=== PATIENT | female | born 1950 | race Caucasian/White ===

== ENCOUNTER 2020-02-22 10:38 | Inpatient (IN) ==
[2020-02-22] MEDS ORDERED: ONDANSETRON INJ 2 MG/ML 2 ML VIAL IV PRN (12:08)
[2020-02-22] MEDS ORDERED: MoRPHine SULFATE 2 MG/ML CARP IV PRN (12:11)
[2020-02-22] MEDS ORDERED: GLUCAGON FOR INJ 1 MG VIAL SQ PRN (12:11)
[2020-02-22] MEDS ORDERED: MoRPHine SULFATE 4 MG/ML 1 ML CARP\\VIAL IV PRN (12:11)
[2020-02-22] MEDS ORDERED: GLUCOSE 40% GEL 15 GM TUBE PO PRN (12:11)
[2020-02-22] MEDS ORDERED: DEXTROSE 50% 50 ML SYRINGE IV PRN (12:11)
[2020-02-22] MEDS ORDERED: GLUCOSE 10 TABS/TUBE PO PRN (12:11)
--- NOTE | 2020-02-22 12:16 | History & Physical Report ---
Date of Service February 22, 2020 Assessment & Plan (1) Acute renal failure: (2) CKD (chronic kidney disease) stage 3, GFR 30-59 ml/min: (3) Hydronephrosis: - Admit to med surg from OSH - Checking CMP now, reported baseline cr of 1.2, elevated at 2.1-->2.2, BUN=36, lactic 1.6, this morning from OSH - WBC = 7.7 on OSH, await repeat CBC - Upload imaging to pacs systems for eval - Urology consulted, Dr. Cole agreeable to cystoscopy for the patient if needed - appreciate - Cont IVFs, strain all urine, strict I/Os - Allow diet today, npo after midnight - UA and urine culture - UCx from 02/20 grew out mixed bret, she was given 1 dose of ceftriaxone there but this was discontinued after culture results, no further abx at this time. - bowel regimen ordered for last BM 3 days ago. (4) Hyperlipidemia: - Cont statin (5) Hypertension: - Cont antihypertensives including metoprolol succ 50 mg daily - hold HCTZ 25 mg daily, losartan 0.5 mg daily prn (6) Diabetes: - A1C with am labs - ISS with accuchecks achs (7) GERD (gastroesophageal reflux disease): - Cont omeprazole (8) Chronic low back pain: - Hx of such, hold celecoxib (9) Anxiety: -Cont lorazepam 0.5 mg prn, only uses occasionally (10) DVT prophylaxis: -teds, scds CODE: Full code Dispo: From home, likely to remain in the hospital x 2 days. History of Present Illness Primary Care Provider: Justino Tovar DO This is a 69 yo F with PMHx of HTN, HLD, DMII, chronic low back pain, anxiety, GERD who presents from [facility] with R groin pain that began 1 day ago leading to nausea and vomiting, found to have mild-moderate Right hydronephrosis. Creatinine is elevated, 2.2 at OSH compared to baseline of 1.2, and did not improve with hydration overnight. CT of the abdomen showed mild to moderate Right hydronephrosis/pelviectasis/ureterectasis without definite urinary calcification. 1-2 mm pelvic calcification in close proximity to distal right ureter but appears to be outside it likely phlebolith per CT AP but reported that there was phleboliths left residually, and no obstructing stone. Her pain worsened, and due to OSH not having urology, was transferred here after discussing with our urologist integration developer. The pt reports her pain is well controlled currently, rated 3/10, but at its worst is a 10/10. It goes from the right flank area around her side into the RLQ. She has had some nausea today but no vomiting. She denies fever, chills or sweats. Allergies Allergy/AdvReac Type Severity Reaction Status Date / Time No Known Allergies Allergy Verified 02/05/20 08:18 Home Medications Home Medications Medication Instructions Recorded Confirmed Type aspirin 81 mg tablet,delayed 81 mg PO DAILY 10/27/19 02/22/20 History release atorvastatin 20 mg tablet 20 mg PO DAILY 10/27/19 02/22/20 History baclofen 20 mg tablet 20 mg PO TID PRN 10/27/19 02/22/20 History hydrochlorothiazide 25 mg tablet 25 mg PO DAILY 10/27/19 02/22/20 History lorazepam 0.5 mg tablet 0.5 mg PO DAILY PRN 10/27/19 02/22/20 History losartan 100 mg tablet 100 mg PO DAILY 10/27/19 02/22/20 History metoprolol succinate 50 mg capsule 50 mg PO DAILY 10/27/19 02/22/20 History sprinkle, ext. release 24 hr omeprazole 40 mg capsule,delayed 40 mg PO DAILY 10/27/19 02/22/20 History release tramadol 50 mg tablet 50 mg PO Q8H PRN 10/27/19 02/22/20 History cephalexin 500 mg PO BID 4 Days #8 cap 02/25/20 Rx lidocaine 2 patch TRANSDERMAL QAM #30 ea 02/25/20 Rx metformin 500 mg PO QAM #30 tab 02/25/20 02/22/20 Rx oxybutynin chloride 5 mg PO BID PRN #20 tab 02/25/20 Rx Past Med/Surg History Medical History Anxiety Chronic low back pain (Chronic) Diabetes mellitus, type 2 GERD (gastroesophageal reflux disease) Lumbar radicular pain (Chronic) Postlaminectomy syndrome of lumbosacral region (Chronic) Surgical History H/O rotator cuff surgery right H/O: hysterectomy Previous back surgery L2-S1 posterior fusion 2 rods and screws 3 years ago (03/2016) Social History Preferred Language: Frisian Communication Ability: Effective Visual Impairment: Limited Hearing Ability: Normal Cash Posting Representative Required: No Beliefs That Will Affect Care: None marital status: Current Living Situation: Spouse current occupational status: retired Feels Safe at Home: Yes Smoking Status: Never smoker Second Hand Exposure: No ; Hx Alcohol Use: No Hx Substance Use: No Review of Systems Review of Systems: Constitutional: No fever, sweats or chills Eyes: No diplopia, no worsening or blurred vision ENT: normal hearing, no trouble swallowing Respiratory: No cough, sputum, dyspnea at rest or on exertion Cardiovascular: No chest pain, tightness or palpitations Abdomen: + As per HPI, + mild pain, +nausea, novomiting, diarrhea. + constipation, last BM 3 days ago Musculoskeletal: No joint pain, calf pain, swelling Neurologic: No weakness, numbness/tingling, or balance problems Psychiatric: No anxiety or depression, uses lorazepam occasionally, like when she has to have a MRI. Skin: No rash or itch Physical Exam Physical Exam: General: awake, alert, no apparent distress, + obese Head: Normocephalic, atraumatic ENT: PERRL, EOMI, no pharyngeal exudate, mucous membranes moist Chest: Clear to auscultation, on room air, no adventitious breath sounds Cardiac: Regular rate and rhythm, no murmur, no JVD, normal peripheral pulses, good capillary refill Abdominal: NABS x 4 quadrants, soft, nondistended, nontender to palpation, no rebound, guarding or tenderness Extremities: Normal inspection, no peripheral edema or erythema, calfs nontender to palpation Psych: Normal mood and affect Neuro: AAO x 3, strength intact bilaterally and rated 5/5, no motor deficits, speech is clear, no peripheral sensory deficits Results & Data Results & Data ([facility]) Diagnostic Findings CT from OSh from 02/21/2020: Mild to moderate Right hydronephrosis/;elviectasis/ureterectasis without difinite urinary calcification. 1-2 mm pelvic calcification in close proximtiy to distal right ureter butappears to be outside it likely phlebolith per CT AP. Code Status & VTE Plan VTE Prophylaxis Plan VTE Prophylaxis will be ordered: Yes Supervising Physician Co-Signing Physician Notes Patient is seen and examined at bedside. During my face to face encounter, I obtained a history and physical examination. My history and physical examination did not differ from the above note created by APC Mrs. Espinoza. I discussed plan with patient and APC, and answered all of the patients questions. Patient is admitted with hydronephrosis, will consult Urology for stent placement. Patient will be NPO after midnight for procedure in AM. PG Care Time/CCT Total # of Minutes Spent Total Time Spent with Patient: Total time spent is greater than 50% in coordination of care (as documented) at patient's floor/unit and/or counseling patient: Coding Level of Care Code 28224 Initial Inpt Care Lvl 3 Diagnoses Acute renal failure N17.9 CKD (chronic kidney disease) stage 3, GFR 30-59 ml/min N18.3 Hydronephrosis N13.30 Hyperlipidemia E78.5 Hypertension I10 Diabetes E11.9 GERD (gastroesophageal reflux disease) K21.9 Chronic low back pain M54.5; G89.29 Anxiety F41.9 DVT prophylaxis Z29.9
--- NOTE | 2020-02-22 14:05 | Urology Consultation ---
Date of Consultation February 22, 2020 Assessment & Plan (1) Hydronephrosis: Worsening pain and VINCE with hydration and time. Sent from [facility] for assessment and urology coverage. Discussed options. Patient had lunch at [facility] prior to transfer. Will plan NPO at midnight and likely stent on Sunday. Complicated medical and surgical and past history and family history reviewed and summarized. See records for full report. (2) Acute renal failure: History of Present Illness Attending Physician: Bertin Stanley MD History of Present Illness New consultation for patient with discomfort, obstruction, and ill feelings. Transferred from [facility]. Found to have significant VINCE which worsened. No obvious stone on imaging but hydro with possible recently passed stone vs pheloblith. Patient developed sudden onset of pain into flank going down and radiating into groin and back in waves comes and goes. Can be severe at times. Worsened during hospitalization Discussed and reviewed patient's family history for any history of stone disease. Also, discussed patient's medical surgery history especially related to any history of urinary issues or stone disease. Patient was admitted and is undergoing observation. Allergies Allergy/AdvReac Type Severity Reaction Status Date / Time No Known Allergies Allergy Verified 02/05/20 08:18 Home Medications Home Medications Medication Instructions Recorded Confirmed Type aspirin 81 mg tablet,delayed 81 mg PO DAILY 10/27/19 02/22/20 History release atorvastatin 20 mg tablet 20 mg PO DAILY 10/27/19 02/22/20 History baclofen 20 mg tablet 20 mg PO TID PRN 10/27/19 02/22/20 History celecoxib 100 mg capsule 100 mg PO BID 10/27/19 02/22/20 History hydrochlorothiazide 25 mg tablet 25 mg PO DAILY 10/27/19 02/22/20 History ibuprofen 800 mg tablet 800 mg PO TID PRN 10/27/19 02/22/20 History lorazepam 0.5 mg tablet 0.5 mg PO DAILY PRN 10/27/19 02/22/20 History losartan 100 mg tablet 100 mg PO DAILY 10/27/19 02/22/20 History metformin 500 mg tablet 500 mg PO BID 10/27/19 02/22/20 History metoprolol succinate 50 mg capsule 50 mg PO DAILY 10/27/19 02/22/20 History sprinkle, ext. release 24 hr omeprazole 40 mg capsule,delayed 40 mg PO DAILY 10/27/19 02/22/20 History release tramadol 50 mg tablet 50 mg PO Q8H PRN 10/27/19 02/22/20 History Patient History Medical History Anxiety Chronic low back pain (Chronic) Diabetes mellitus, type 2 GERD (gastroesophageal reflux disease) Lumbar radicular pain (Chronic) Postlaminectomy syndrome of lumbosacral region (Chronic) Surgical History H/O rotator cuff surgery right H/O: hysterectomy Previous back surgery L2-S1 posterior fusion 2 rods and screws 3 years ago (03/2016) Social History Preferred Language: Bulgarian Communication Ability: Effective Visual Impairment: Limited Hearing Ability: Normal Gritting Machine Operator Required: No Beliefs That Will Affect Care: None marital status: Current Living Situation: Spouse current occupational status: retired Other Information That Helps Us Care for You: No Feels Safe at Home: Yes Safety Concerns: Feels Safe At This Time Smoking Status: Never smoker Do You Dip or Chew Tobacco: No ; Second Hand Exposure: No ; Tobacco Cessation Education Requested by Patient: No Hx Alcohol Use: No Hx Substance Use: No Review of Systems Review of Systems: All systems reviewed & are unremarkable except as noted in HPI & below Physical Exam Physical Exam: General: Alert and oriented x 3 in no acute distress. Patient is well nourished and well kept. HEENT: Normocephalic Atraumatic. Inspection normal. Cranial Nerves 2-12 Grossly intact. Nares are clear. Neck is supple. Normal inspection of face. Normal inspection of neck. Neurologic: No deficits on inspection. Baseline for motor function and sensory. Psychologic: Normal affect. Respiratory: Nonlabored. No use of accessory muscles. No tachypnea or dyspnea. Cardiovascular: No tachycardia Skin: [place] and Dry. No rashes or visible lesions. Extremities: Moving without issues. No motor deficits on inspection Lymphatics: No edema Abdomen: Soft Non-distended. No acites. No rebound or guarding. PG Care Time/CCT Total # of Minutes Spent Total Time Spent with Patient: Total time spent is greater than 50% in coordination of care (as documented) at patient's floor/unit and/or counseling patient: Coding Level of Care Code 78555 Initial Inpt Care Lvl 3 Diagnoses Hydronephrosis N13.30 Acute renal failure N17.9
[2020-02-22] MEDS ORDERED: Nursing to Pharmacy Communication SCH (14:30)
[2020-02-22] MEDS: SODIUM CHLORIDE 0.9% 1000ML 1,000 ML IV SCH ×2 (14:39→21:13)
[2020-02-22] MEDS ORDERED: bisacodyL 10 MG SUPP PR PRN (14:45)
[2020-02-22 15:16] LABS: Albumin Level 3.2 gm/dl (3.4-5.0); BUN Creatinine Ratio 15.2 (10-20); Creatinine Clr Calc Pharmacy 24.1 ml/min; Est GFR (African American) 25.3; Est GFR (Non-African American) 21.8; Potassium 3.8 mmol/L (3.5-5.1)
[2020-02-22 15:18] LABS: Albumin Globulin Ratio 0.9 (0.9-2); Bilirubin,Total 0.5 mg/dl (0.2-1); Globulin 3.7 gm/dl (2.5-4.0); Total Protein 6.9 gm/dl (6.4-8.2)
[2020-02-22] MEDS: POLYETHYLENE (MIRALAX) 17 GM PACK PO SCH (15:58)
[2020-02-22] MEDS: SENNA 8.6 MG TAB PO SCH (16:09)
[2020-02-22] MEDS: ACETAMINOPHEN 325 MG TAB PO PRN ×2 (16:13→21:20)
[2020-02-22 16:23] LABS: Appearance Urine Clear (Clear); Bacteria Urine Automated Negative (Negative); Bilirubin Urine Negative (Negative); Blood Urine 2+ (Negative); Color Urine Yellow; Epithelial Cell Urine Auto 20-30 /lpf (0-5); Glucose Urine UA Negative (Negative); Ketones Urine Negative (Negative); Leukocyte Esterase Urine 2+ (Negative); Nitrite Urine Negative (Negative); Protein Urine Negative (Negative); Specific Gravity Urine 1.021 (1.000-1.030); Urobilinogen Urine Negative (Negative)
[2020-02-22] MEDS ORDERED: INSULIN ASPART 100 UNITS/ML 3 ML PEN SC SCH (18:00)
[2020-02-22] MEDS: INSULIN ASPART 100 UNITS/ML 3 ML PEN SC SCH ×2 (18:03→21:13)
[2020-02-22] MEDS: KETOROLAC TROMETHAMINE 15 MG/ML VIAL IV PRN (23:32)
[2020-02-23] MEDS ORDERED: Nursing to Pharmacy Communication SCH ×2 (02:00→18:15)
[2020-02-23] MEDS: SODIUM CHLORIDE 0.9% 1000ML 1,000 ML IV SCH (05:23)
[2020-02-23] MEDS: KETOROLAC TROMETHAMINE 15 MG/ML VIAL IV PRN (05:34)
[2020-02-23 06:16] LABS: Basophils # (auto) 0.03 K/uL (0-0.2); Basophils % (auto) 0.5 %; Eosinophils # (auto) 0.09 K/uL (0-0.5); Eosinophils % (auto) 1.6 %; Hematocrit (blood only) 31.6 % (37-47); Lymphocytes # (auto) 2.32 K/uL (1.2-3.4); Lymphocytes % (auto) 41.8 %; Mean Corpuscular Hemoglobin 29.5 pg (25-34); Mean Corpuscular Hgb Conc 31.6 g/dL (32-36); Mean Corpuscular Volume 93.2 fL (80-100); Mean Platelet Volume 9.9 fL (7.4-10.4); Monocytes # (auto) 0.48 K/uL (0.11-0.59); Monocytes % (auto) 8.6 %; Neutrophils # (auto) 2.63 K/uL (1.4-6.5); Neutrophils % (auto) 47.5 %; Platelet Count 165 K/uL (130-400); RDW Coefficient of Variation 14.7 % (11.5-14.5); RDW Standard Deviation 49.8 fL (36.4-46.3); Red Blood Count 3.39 M/uL (4.2-5.4); White Blood Count 5.55 K/uL (4.8-10.8)
[2020-02-23] MEDS: INSULIN ASPART 100 UNITS/ML 3 ML PEN SC SCH ×2 (06:32→12:14)
[2020-02-23 07:02] LABS: Albumin Globulin Ratio 0.8 (0.9-2); Albumin Level 2.6 gm/dl (3.4-5.0); BUN Creatinine Ratio 22.8 (10-20); Bilirubin,Total 0.4 mg/dl (0.2-1); Calcium 7.6 mg/dl (8.5-10.1); Creatinine Clr Calc Pharmacy 36.8 ml/min; Est GFR (African American) 42.2; Est GFR (Non-African American) 36.4; Globulin 3.1 gm/dl (2.5-4.0); Potassium 3.9 mmol/L (3.5-5.1); Total Protein 5.7 gm/dl (6.4-8.2)
[2020-02-23 07:05] LABS: Estimated Average Glucose 131 mg/dl; Hemoglobin A1C 6.2 % (4.5-5.6)
--- NOTE | 2020-02-23 08:48 | Urology Progress Note ---
Date of Service February 23, 2020 Assessment & Plan (1) Hydronephrosis: Worsening pain and VINCE with hydration and time. Sent from [facility] for assessment and urology coverage. Doing better this AM. Pain less severe. VINCE resolving. Discussed options including cystoscopy with retrograde and possible ureteroscopy. Risks and benefits discussed at length for procedure. These include bleeding, infection, injury to surrounding tissues or organs, and risks associated with anesthesia. Patient states understanding and agrees to proceed. Will sign consent and schedule. Plan to proceed with cystoscopy and right retrograde with possible dilation. Subjective Patient with possible obstruction and issues with pain in flank and back with significant VINCE. Patient has been tolerating well IV and oral hydration. Has noticed some frequency and urgency. Has not had severe pain in the back and flank. Does have occasional burning and irritation. No severe episodes or major changes. No new nausea or vomiting. Review of Systems Review of Systems: All systems reviewed & are unremarkable except as noted in HPI & below Physical Exam Physical Exam: General: Alert in no acute distress. HEENT: Normocephalic Atraumatic. Inspection normal. Cranial Nerves 2-12 Grossly intact. Normal inspection of face. Normal inspection of neck. Psychologic: Normal affect. Respiratory: Nonlabored. No use of accessory muscles. No tachypnea or dyspnea. Cardiovascular: No tachycardia Skin: [place] and Dry. No rashes or visible lesions. Extremities/Lymphatics: No edema Abdomen: Soft Non-distended. No rebound or guarding. Results & Data Vital Signs (Past 12 Hours) Vital Signs Temp Pulse Resp BP Pulse Ox 02/23/20 07:23 36.7 C 57 L 18 122/70 97 02/22/20 22:54 36.8 C 68 16 98/66 L 96 PG Care Time/CCT Total # of Minutes Spent Total Time Spent with Patient: Total time spent is greater than 50% in coordination of care (as documented) at patient's floor/unit and/or counseling patient: Coding Level of Care Code 83833 Subseq Hosp Care Lvl 3 Diagnoses Hydronephrosis N13.30
[2020-02-23] MEDS: SENNA 8.6 MG TAB PO SCH (09:28)
[2020-02-23] MEDS: POLYETHYLENE (MIRALAX) 17 GM PACK PO SCH (09:28)
--- NOTE | 2020-02-23 11:12 | Electrocardiogram Report ---
Test Reason : Blood Pressure : / mmHG Vent. Rate : 072 BPM Atrial Rate : 072 BPM P-R Int : 152 ms QRS Dur : 072 ms QT Int : 396 ms P-R-T Axes : 042 -18 022 degrees QTc Int : 433 ms Normal sinus rhythm Poor R wave progression, consider anterior OK vs. lead placement vs. LVH Abnormal ECG When compared with ECG of 16-SEP-2015 07:16, No significant change was found Confirmed by Trever Rivas ([id number]) on 02/23/2020 11:12:19 AM Referred By: Bertin Stanley Confirmed By:Trever Rivsa
--- NOTE | 2020-02-23 15:27 | Anesthesiology Consultation ---
Date of Service February 23, 2020 Assessment & Plan Chart Review Chart Review: Acceptable Risk for Surgery Consults Requested none History Surgery Operation Date: 02/23/20 12:55 Proposed Procedures p Cystoscopy Retrograde, Stent - Art Cole DO Operation Date: 02/23/20 13:15 Proposed Procedures p Cystoscopy Retrograde - Art Cole DO Height/Weight Height: 5 ft 2 in Weight: 87.6 kg Allergies Allergy/AdvReac Type Severity Reaction Status Date / Time No Known Allergies Allergy Verified 02/05/20 08:18 Medications Home Medications Medication Instructions Recorded Confirmed Last Taken aspirin 81 mg tablet,delayed 81 mg PO DAILY 10/27/19 02/22/20 02/22/20 release atorvastatin 20 mg tablet 20 mg PO DAILY 10/27/19 02/22/20 02/21/20 baclofen 20 mg tablet 20 mg PO TID PRN 10/27/19 02/22/20 Unknown celecoxib 100 mg capsule 100 mg PO BID 10/27/19 02/22/20 Unknown hydrochlorothiazide 25 mg tablet 25 mg PO DAILY 10/27/19 02/22/20 02/21/20 ibuprofen 800 mg tablet 800 mg PO TID PRN 10/27/19 02/22/20 Unknown lorazepam 0.5 mg tablet 0.5 mg PO DAILY PRN 10/27/19 02/22/20 02/22/20 losartan 100 mg tablet 100 mg PO DAILY 10/27/19 02/22/20 02/21/20 metformin 500 mg tablet 500 mg PO BID 10/27/19 02/22/20 02/21/20 metoprolol succinate 50 mg capsule 50 mg PO DAILY 10/27/19 02/22/20 02/22/20 sprinkle, ext. release 24 hr omeprazole 40 mg capsule,delayed 40 mg PO DAILY 10/27/19 02/22/20 02/21/20 release tramadol 50 mg tablet 50 mg PO Q8H PRN 10/27/19 02/22/20 Unknown Active Medications Generic Name Dose Route Start Last Admin Trade Name Freq PRN Reason Stop Dose Admin Acetaminophen 650 mg 02/22/20 12:08 02/22/20 21:20 Tylenol PO 03/23/20 12:07 650 mg Q4H PRN Administration Moderate Pain Insulin Aspart 0 units 02/23/20 06:00 02/23/20 12:14 Novolog Flexpen SC 03/24/20 05:59 Not Given Q6 EWA Ketorolac Tromethamine 15 mg 02/22/20 12:11 02/23/20 05:34 Toradol IV 02/27/20 12:10 15 mg Q6H PRN Administration Pain Polyethylene Glycol 17 gm 02/22/20 14:45 02/23/20 09:28 Miralax Powder Packet PO 03/23/20 14:44 Not Given DAILY EWA Sennosides 8.6 mg 02/22/20 14:45 02/23/20 09:28 Senokot PO 03/23/20 14:44 Not Given QAM EWA NPO Date Last Intake of Fluids: 02/22/20 Time Last Intake of Fluids: 18:00 Date Last Intake of Solids: 02/22/20 Time Last Intake of Solids: 18:00 Past Medical History Medical History Anxiety Chronic low back pain (Chronic) Diabetes mellitus, type 2 GERD (gastroesophageal reflux disease) Lumbar radicular pain (Chronic) Postlaminectomy syndrome of lumbosacral region (Chronic) Past Surgical History Surgical History H/O rotator cuff surgery right H/O: hysterectomy Previous back surgery L2-S1 posterior fusion 2 rods and screws 3 years ago (03/2016) Social History Smoking Status: Never smoker Do You Dip or Chew Tobacco: No Hx Alcohol Use: No Hx Substance Use: No Physical Exam Vital Signs Last Vital Signs Temp 37.0 C 02/23/20 14:40 Pulse 59 L 02/23/20 14:40 Resp 18 02/23/20 14:40 BP 199/86 H 02/23/20 14:40 Pulse Ox 99 02/23/20 14:40 Testing Laboratory Results 02/23/20 05:54 02/23/20 05:54 Hemoglobin A1c 6.2 % (4.5-5.6) H 02/23/20 05:54 Urine Color Yellow 02/22/20 16:00 Urine Appearance Clear (Clear) 02/22/20 16:00 Urine pH 5.0 (4.5-7.5) 02/22/20 16:00 Ur Specific [place] 1.021 (1.000-1.030) 02/22/20 16:00 Urine Protein Negative (Negative) 02/22/20 16:00 Urine Glucose (UA) Negative (Negative) 02/22/20 16:00 Urine Ketones Negative (Negative) 02/22/20 16:00 Urine Nitrite Negative (Negative) 02/22/20 16:00 Ur Leukocyte Esterase 2+ (Negative) H 02/22/20 16:00 Urine WBC (Auto) 10-30 /hpf (0-5) H 02/22/20 16:00 Urine RBC (Auto) 5-10 /hpf (0-4) H 02/22/20 16:00 U Hyaline Cast (Auto) 5-10 /lpf (0-5) H 02/22/20 16:00 U Epithel Cells (Auto) 20-30 /lpf (0-5) H 02/22/20 16:00 Urine Bacteria (Auto) Negative (Negative) 02/22/20 16:00 02/23/20 02/23/20 02/23/20 14:42 12:11 05:40 POC Glucose 71 81 102 H
[2020-02-23] MEDS ORDERED: fentaNYL citrate 100 MCG/2 ML VIAL IV PRN (15:30)
[2020-02-23] MEDS ORDERED: HYDROmorphone INJ 2 MG/ML SYR/VIAL IV PRN (15:30)
[2020-02-23] MEDS ORDERED: ATROPINE SULFATE 0.1 MG/ML 10ML SYR IV PRN (15:30)
[2020-02-23] MEDS ORDERED: ePHEDrine sulfate 50 MG/ML AMP IV PRN (15:30)
[2020-02-23] MEDS ORDERED: ONDANSETRON INJ 2 MG/ML 2 ML VIAL IV PRN (15:30)
[2020-02-23] MEDS ORDERED: LIDOCAINE HCL 2% 2 ML VIAL/AMP(20MG/ML) INFIL ONE (15:31)
[2020-02-23] MEDS ORDERED: fentaNYL citrate 100 MCG/2 ML VIAL ONE (15:31)
[2020-02-23] MEDS ORDERED: PROPOFOL IV EMULSION 10 MG/ML 20 ML VIAL IV ONE (15:31)
[2020-02-23] MEDS ORDERED: MIDAZOLAM HCL 1 MG/ML 2ML VIAL ONE (15:31)
[2020-02-23] MEDS ORDERED: ONDANSETRON INJ 2 MG/ML 2 ML VIAL ONE (15:31)
[2020-02-23] MEDS ORDERED: IOTHALAMATE MEGLUMINE II 17.2% 250 ML VIAL ONE (16:19)
[2020-02-23] MEDS ORDERED: CEFAZOLIN 1000MG 1,000 MG/7.5 ML SYR IV ONE (16:36)
--- NOTE | 2020-02-23 16:47 | Operative Report ---
PG Post Operative Report Pre & Post Diagnosis Operation Date: 02/23/20 12:55 Pre-Op Diagnosis: HYDRONEPHROSIS,NEPHROLITHIASIS Post-Op Diagnosis: HYDRONEPHROSIS,NEPHROLITHIASIS Operation Date: 02/23/20 13:15 <No data on this case meets the specified criteria> I identified the patient and participated in the time-out.: Yes Procedure Operation Date: 02/23/20 12:55 Actual Procedures p Cystoscopy with extraction of bladder stones and right ureteroscopy with dilation of ureter, Retrograde pyelogram, Ureteral Stent Placement, stone basket extraction(Right) - Art Cole DO Operation Date: 02/23/20 13:15 <No data on this case meets the specified criteria> Surgeon Art Cole, II, DO Director Of Infection Control None Estimated Blood Loss 1 Findings Consistent with Post-Op Diagnosis Stone destroyed to dust and small fragments and larger fragments removed. Specimens Stone Fragments Drains 6 Fr Multilength on tether. Anesthesia Type General Complications none Disposition Disposition: Recovery Room Indications Patient with stricture vs stones causing hydronephrosis. Risks and benefits discussed at length. Description of Procedure Patient was consented and brought back to the operating room. Patient was placed under anesthesia in the supine position and moved to the dorsal lithotomy position. Patient was prepped and draped in the regular sterile fashion. A time out was completed. A 30degree Cystoscope was placed into the bladder and the entire bladder was examined. A large amount of debris and stone were in the base of the bladder. These were irrigated. Patient had significant pelvic organ prolapse. The UO's were identified. The UO was cannulized with a catheter and a retrograde pyelogram was completed. The ureter appeared strictured. A wire was then placed. The Rigid ureteroscope was taken into the ureter. A significant stricture with an obstructing stone was identified. The stricture was dilated. The stone was grasped and removed with the basket. The entire area was once again examined. No residual large fragments or areas of concern were noted. The scope was slowly removed with the wire left in place. Contrast was placed through the scope for a pyelogram to assist in stent placement. The entire ureter was examined as the scope was slowly removed. No obstructions or other areas of concern were noted. With the wire in place, a 6 Fr Double J stent was placed. It was confirmed with fluoroscopy. With the stent in place, the bladder was emptied. The scope was removed. The patient was cleaned, aroused from anesthesia, and transferred to the pacu in stable condition having tolerated the procedure well with no complications. I was present and participated in all aspects of the procedure. The patient will be monitored in the PACU until transferred. I attest to the content of the Intraoperative Record and any orders documented therein. Any exceptions are noted below.
--- NOTE | 2020-02-23 16:57 | Fluoroscopy Report ---
FL retrograde includes kub CLINICAL HISTORY: CYSTO/RETROGRADE/STENT COMPARISON STUDY: None FLUOROSCOPY TIME: 1 minute 4 seconds NUMBER OF FLUOROSCOPIC IMAGES: 2 FINDINGS: Image intensifier support for laser lithotripsy and right ureteral stent placement IMPRESSION: Image intensifier support for laser lithotripsy and right ureteral stent placement ACT 112: Negative or not required by law. The above report was generated using voice recognition software. It may contain grammatical, syntax or spelling errors. Electronically signed by: Evelio Cabral M.D. 02/23/2020 4:56 PM
--- NOTE | 2020-02-23 17:07 | Anesthesiology Progress Note ---
Date of Service February 23, 2020 Anesthesia Post Procedure Vital Signs Vital Signs: Temp Pulse Pulse Resp BP Pulse Ox 02/23/20 17:00 64 15 138/78 96 02/23/20 16:53 37.0 C 69 17 130/78 94 02/23/20 14:40 37.0 C 59 L 18 199/86 H 99 02/23/20 07:23 36.7 C 57 L 18 122/70 97 02/22/20 22:54 36.8 C 68 16 98/66 L 96 Pain Intensity Right Flank: Pain Intensity: 0 Back: Pain Intensity: 6 Head: Pain Intensity: 7 Transfer of Care Handoff Completed per policy Notes Mental Status: alert / awake / arousable Patient Amnestic to Procedure: Yes Nausea / Vomiting: adequately controlled Pain: adequately controlled Airway Patency, RR, SpO2: stable & adequate BP & HR: stable & adequate Hydration State: stable & adequate Anesthetic Complications: no major complications apparent
[2020-02-23] MEDS: CARBOHYDRATES FOR HYPOGLYCEMIA PO PRN ×2 (18:22→18:41)
[2020-02-23] MEDS ORDERED: INSULIN ASPART 100 UNITS/ML 3 ML PEN SC SCH (21:00)
--- NOTE | 2020-02-23 21:03 | Hospitalist Progress Note ---
Date of Service February 23, 2020 Assessment & Plan (1) Kidney stone on right side: s/p cysto today by Dr Cole. Findings on cysto - bladder stones/debris in bladder -- removed. Right sided ureteral stricture - dilated. Right sided ureteral stone - removed. stent placed. appreciate his assistance. (2) Ureteral stricture, right: s/p dilatation. stone and stricture caused her hydronephrosis. (3) Acute renal failure: obstructive from kidney stone and ureteral stricture. Cr improved today. cont IV fluids. repeat BMP am. (4) CKD (chronic kidney disease) stage 3, GFR 30-59 ml/min: uncertain baseline but suspect stage 3 repeat BMP am (5) Hydronephrosis: right-sided - as above (6) Hyperlipidemia: holding statin for now resume at discharge (7) Hypertension: HCTZ, ARB, and BB all on hold can likely resume metoprolol xl in am tomorrow (8) Diabetes: holding oral agents cont novolog correction/carb coverage HbA1C 6.2% (9) GERD (gastroesophageal reflux disease): prilosec not on formulatory use protonix in [place] (10) Chronic low back pain: with surgery in past hold celebrex in light of VINCE (11) Anxiety: -Cont lorazepam 0.5 mg prn (12) DVT prophylaxis: SCDs for now in light of surgery today labs AM IV fluids overnight Admission and Anticipated Discharge Date Admission Date: February 22, 2020 Subjective saw patient pre-cysto was resting comfortably w/o right sided flank or back pain ambulating w/o difficulty offered no complaints Review of Systems Constitutional: no fever Respiratory: no dyspnea and no dyspnea on exertion Cardiovascular: no chest pain Gastrointestinal: no vomiting Physical Exam Constitutional: well developed, well nourished and + obese; no acute distress and no altered mental status ENMT: external ear and nose normal, oropharynx normal Respiratory: normal respiratory effort, lungs clear to auscultation Cardiovascular: Rate/Rhythm: regular rate and regular rhythm Heart Sounds: normal S1 and normal S2; no murmur Vessels: posterior tibial pulses present and dorsalis pedis pulses present; no JVD Extremities: no edema Gastrointestinal (Abdomen): normal bowel sounds, soft, nontender, no hepatosplenomegaly Psychiatric: A+Ox3, euthymic affect Results & Data Results & Data ([facility]) Vital Signs (Past 12 Hours) Vital Signs Temp Pulse Pulse Resp BP Pulse Ox 02/23/20 19:45 36.5 C 74 16 113/76 96 02/23/20 18:36 36.5 C 57 L 16 147/78 H 96 02/23/20 17:40 36.5 C 58 L 16 141/84 H 99 02/23/20 17:15 62 16 146/76 H 96 02/23/20 17:10 37.2 C 60 16 151/85 H 96 02/23/20 17:00 64 15 138/78 96 02/23/20 16:53 37.0 C 69 17 130/78 94 02/23/20 14:40 37.0 C 59 L 18 199/86 H 99 Laboratory Results urine cx pending Laboratory Results - last 24 hr 02/22/20 02/23/20 02/23/20 16:49 05:40 05:54 WBC 5.55 RBC 3.39 L Hgb 10.0 L Hct 31.6 L MCV 93.2 MCH 29.5 MCHC 31.6 L RDW Std Deviation 49.8 H RDW Coeff of Sari 14.7 H Plt Count 165 MPV 9.9 Immature Gran % (Auto) 0.0 Neut % (Auto) 47.5 Lymph % (Auto) 41.8 Brooke % (Auto) 8.6 Eos % (Auto) 1.6 Baso % (Auto) 0.5 Immature Gran # (Auto) 0.00 Neut # (Auto) 2.63 Lymph # (Auto) 2.32 Brooke # (Auto) 0.48 Eos # (Auto) 0.09 Baso # (Auto) 0.03 Sodium Potassium Chloride Carbon Dioxide Anion Gap BUN Creatinine Est Cr Clr Drug Dosing Est GFR ( Amer) Est GFR (Non-Af Amer) BUN/Creatinine Ratio Glucose POC Glucose 102 H Estimat Average Glucose Hemoglobin A1c Calcium Total Bilirubin AST ALT Alkaline Phosphatase Total Protein Albumin Globulin Albumin/Globulin Ratio Stone Source Stone Weight Stone Composition Stone Composition 2 COVID-19 PCR NEGATIVE 02/23/20 02/23/20 02/23/20 05:54 05:54 12:11 WBC RBC Hgb Hct MCV MCH MCHC RDW Std Deviation RDW Coeff of Sari Plt Count MPV Immature Gran % (Auto) Neut % (Auto) Lymph % (Auto) Brooke % (Auto) Eos % (Auto) Baso % (Auto) Immature Gran # (Auto) Neut # (Auto) Lymph # (Auto) Brooke # (Auto) Eos # (Auto) Baso # (Auto) Sodium 144 Potassium 3.9 Chloride 113 H Carbon Dioxide 25 Anion Gap 6.0 BUN 33 H Creatinine 1.44 H D Est Cr Clr Drug Dosing 36.8 Est GFR ( Amer) 42.2 Est GFR (Non-Af Amer) 36.4 BUN/Creatinine Ratio 22.8 H Glucose 98 POC Glucose 81 Estimat Average Glucose 131 Hemoglobin A1c 6.2 H Calcium 7.6 L Total Bilirubin 0.4 AST 7 L ALT 11 L Alkaline Phosphatase 41 L Total Protein 5.7 L Albumin 2.6 L Globulin 3.1 Albumin/Globulin Ratio 0.8 L Stone Source Stone Weight Stone Composition Stone Composition 2 COVID-19 [facility] 02/23/20 02/23/20 02/23/20 14:42 16:39 17:10 WBC RBC Hgb Hct MCV MCH MCHC RDW Std Deviation RDW Coeff of Sari Plt Count MPV Immature Gran % (Auto) Neut % (Auto) Lymph % (Auto) Brooke % (Auto) Eos % (Auto) Baso % (Auto) Immature Gran # (Auto) Neut # (Auto) Lymph # (Auto) Brooke # (Auto) Eos # (Auto) Baso # (Auto) Sodium Potassium Chloride Carbon Dioxide Anion Gap BUN Creatinine Est Cr Clr Drug Dosing Est GFR ( Amer) Est GFR (Non-Af Amer) BUN/Creatinine Ratio Glucose POC Glucose 71 75 Estimat Average Glucose Hemoglobin A1c Calcium Total Bilirubin AST ALT Alkaline Phosphatase Total Protein Albumin Globulin Albumin/Globulin Ratio Stone Source Pending Stone Weight Pending Stone Composition Pending Stone Composition 2 Pending COVID-19 PCR 02/23/20 02/23/20 02/23/20 18:16 18:18 18:38 WBC RBC Hgb Hct MCV MCH MCHC RDW Std Deviation RDW Coeff of Sari Plt Count MPV Immature Gran % (Auto) Neut % (Auto) Lymph % (Auto) Brooke % (Auto) Eos % (Auto) Baso % (Auto) Immature Gran # (Auto) Neut # (Auto) Lymph # (Auto) Brooke # (Auto) Eos # (Auto) Baso # (Auto) Sodium Potassium Chloride Carbon Dioxide Anion Gap BUN Creatinine Est Cr Clr Drug Dosing Est GFR ( Amer) Est GFR (Non-Af Amer) BUN/Creatinine Ratio Glucose POC Glucose 68 L* 65 L* 67 L* Estimat Average Glucose Hemoglobin A1c Calcium Total Bilirubin AST ALT Alkaline Phosphatase Total Protein Albumin Globulin Albumin/Globulin Ratio Stone Source Stone Weight Stone Composition Stone Composition 2 COVID-19 PCR 02/23/20 02/23/20 02/23/20 18:57 19:30 20:43 WBC RBC Hgb Hct MCV MCH MCHC RDW Std Deviation RDW Coeff of Sari Plt Count MPV Immature Gran % (Auto) Neut % (Auto) Lymph % (Auto) Brooke % (Auto) Eos % (Auto) Baso % (Auto) Immature Gran # (Auto) Neut # (Auto) Lymph # (Auto) Brooke # (Auto) Eos # (Auto) Baso # (Auto) Sodium Potassium Chloride Carbon Dioxide Anion Gap BUN Creatinine Est Cr Clr Drug Dosing Est GFR ( Amer) Est GFR (Non-Af Amer) BUN/Creatinine Ratio Glucose POC Glucose 86 104 H 136 H Estimat Average Glucose Hemoglobin A1c Calcium Total Bilirubin AST ALT Alkaline Phosphatase Total Protein Albumin Globulin Albumin/Globulin Ratio Stone Source Stone Weight Stone Composition Stone Composition 2 COVID-19 PCR 02/23/20 Unknown WBC RBC Hgb Hct MCV MCH MCHC RDW Std Deviation RDW Coeff of Sari Plt Count MPV Immature Gran % (Auto) Neut % (Auto) Lymph % (Auto) Brooke % (Auto) Eos % (Auto) Baso % (Auto) Immature Gran # (Auto) Neut # (Auto) Lymph # (Auto) Brooke # (Auto) Eos # (Auto) Baso # (Auto) Sodium Potassium Chloride Carbon Dioxide Anion Gap BUN Creatinine Est Cr Clr Drug Dosing Est GFR ( Amer) Est GFR (Non-Af Amer) BUN/Creatinine Ratio Glucose POC Glucose Estimat Average Glucose Hemoglobin A1c Calcium Total Bilirubin AST ALT Alkaline Phosphatase Total Protein Albumin Globulin Albumin/Globulin Ratio Stone Source Pending Stone Weight Pending Stone Composition Pending Stone Composition 2 Pending COVID-19 PCR PG Care Time/CCT Total # of Minutes Spent Total Time Spent with Patient: Total time spent is greater than 50% in coordination of care (as documented) at patient's floor/unit and/or counseling patient: Coding Level of Care Code 32159 Subseq Hosp Care Lvl 2 Diagnoses Kidney stone on right side N20.0 Ureteral stricture, right N13.5 Acute renal failure N17.9 Acute renal failure type: unspecified CKD (chronic kidney disease) stage 3, GFR 30-59 ml/min N18.3 Hydronephrosis N13.30 Hydronephrosis type: unspecified Hyperlipidemia E78.2 Hyperlipidemia type: mixed hyperlipidemia Hypertension I10 Hypertension type: essential hypertension Diabetes E11.9 Diabetes mellitus type: type 2 Diabetes mellitus skilled nursing insulin use: without skilled nursing use Diabetes mellitus complication status: without complication GERD (gastroesophageal reflux disease) K21.9 Esophagitis presence: esophagitis presence not specified Chronic low back pain M54.5; G89.29 Back pain laterality: unspecified Sciatica presence: without sciatica Anxiety F41.9 DVT prophylaxis Z29.9 (1) Acute renal failure Acute renal failure type: unspecified Qualified Code(s): N17.9 - Acute kidney failure, unspecified (2) Hydronephrosis Hydronephrosis type: unspecified Qualified Code(s): N13.30 - Unspecified hydronephrosis (3) Hyperlipidemia Hyperlipidemia type: mixed hyperlipidemia Qualified Code(s): E78.2 - Mixed hyperlipidemia (4) Hypertension Hypertension type: essential hypertension Qualified Code(s): I10 - Essential (primary) hypertension (5) Diabetes Diabetes mellitus type: type 2 Diabetes mellitus intermediate school teacher insulin use: without skilled nursing use Diabetes mellitus complication status: without complication Qualified Code(s): E11.9 - Type 2 diabetes mellitus without complications (6) GERD (gastroesophageal reflux disease) Esophagitis presence: esophagitis presence not specified Qualified Code(s): K21.9 - Gastro-esophageal reflux disease without esophagitis (7) Chronic low back pain Back pain laterality: unspecified Sciatica presence: without sciatica Qualified Code(s): M54.5 - Low back pain; G89.29 - Other chronic pain
[2020-02-23] MEDS: ACETAMINOPHEN 325 MG TAB PO PRN (23:34)
[2020-02-24] MEDS: MELATONIN 3 MG TAB PO PRN (01:21)
[2020-02-24 05:28] LABS: Hematocrit (blood only) 32.8 % (37-47); Hemoglobin 10.4 g/dL (12.0-16.0); Mean Corpuscular Hemoglobin 29.5 pg (25-34); Mean Corpuscular Hgb Conc 31.7 g/dL (32-36); Mean Corpuscular Volume 93.2 fL (80-100); Mean Platelet Volume 10.8 fL (7.4-10.4); Platelet Count 185 K/uL (130-400); RDW Coefficient of Variation 14.5 % (11.5-14.5); RDW Standard Deviation 49.7 fL (36.4-46.3); Red Blood Count 3.52 M/uL (4.2-5.4); White Blood Count 4.95 K/uL (4.8-10.8)
[2020-02-24 06:01] LABS: BUN Creatinine Ratio 22.9 (10-20); Calcium 8.3 mg/dl (8.5-10.1); Creatinine Clr Calc Pharmacy 59.1 ml/min; Est GFR (African American) 73.6; Est GFR (Non-African American) 63.5; Potassium 3.9 mmol/L (3.5-5.1)
--- NOTE | 2020-02-24 08:03 | Anesthesiology Progress Note ---
Date of Service February 24, 2020 Anesthesia Post Procedure Vital Signs Vital Signs: Temp Pulse Pulse Resp BP Pulse Ox 02/24/20 07:14 36.5 C 65 16 135/84 98 02/24/20 03:09 36.5 C 65 16 149/83 H 98 02/23/20 23:15 36.7 C 63 16 144/83 H 96 02/23/20 19:45 36.5 C 74 16 113/76 96 02/23/20 18:36 36.5 C 57 L 16 147/78 H 96 02/23/20 17:40 36.5 C 58 L 16 141/84 H 99 02/23/20 17:15 62 16 146/76 H 96 02/23/20 17:10 37.2 C 60 16 151/85 H 96 02/23/20 17:00 64 15 138/78 96 02/23/20 16:53 37.0 C 69 17 130/78 94 02/23/20 14:40 37.0 C 59 L 18 199/86 H 99 Pain Intensity Right Flank: Pain Intensity: 0 Back: Pain Intensity: 6 Head: Pain Intensity: 7 Notes Mental Status: alert / awake / arousable and participated in evaluation Patient Amnestic to Procedure: Yes Nausea / Vomiting: adequately controlled Pain: adequately controlled Airway Patency, RR, SpO2: stable & adequate BP & HR: stable & adequate Hydration State: stable & adequate Anesthetic Complications: no major complications apparent and Pt Satisfied with anesthetic care
[2020-02-24] MEDS: SENNA 8.6 MG TAB PO SCH (09:42)
[2020-02-24] MEDS: POLYETHYLENE (MIRALAX) 17 GM PACK PO SCH (09:42)
[2020-02-24] MEDS: INSULIN ASPART 100 UNITS/ML 3 ML PEN SC SCH ×5 (09:57→20:42)
[2020-02-24] MEDS ORDERED: bisacodyL 10 MG SUPP PR STA (10:51)
[2020-02-24] MEDS ORDERED: TRAMADOL HCL 50 MG TABLET PO STA (10:51)
--- NOTE | 2020-02-24 11:48 | Urology Progress Note ---
Date of Service February 24, 2020 Assessment & Plan (1) Kidney stone on right side: (2) Ureteral stricture, right: 69 yo F POD #1 s/p Cystoscopy with extraction of bladder stones and right ureteroscopy with dilation of ureter, Retrograde pyelogram, right ureteral stent placement, stone basket extraction with Dr. Cole. - Doing well, progressing as expected - Tolerating stent with minimal bother - Final UC&S showed contamination with moderate counts of mixed organisms - Clinical course reviewed, all questions answered - Will arrange outpatient follow-up with out service for stent removal Thank you for allowing us to participate in the acute care of Mrs. Gill. Please reconsult us with additional questions, concerns or changes in patient status. Subjective 69 yo F POD #1 s/p Cystoscopy with extraction of bladder stones and right ureteroscopy with dilation of ureter, Retrograde pyelogram, right ureteral stent placement, stone basket extraction with Dr. Cole. Awake, sitting up in bed. Feeling well, no complaints at this time. No issues overnight. Reports headache earlier, now resolved. Tolerating stent with low bother. No abdominal, suprapubic, or flank pain. Reports last BM 4-5 days ago. States she is ordered to have a suppository today. Voiding without difficulty. Notes hematuria. No f/c/n/v. Chart review: Afebrile. Creatinine 0.91, WBC 4.95. UC&S showed moderate counts of mixed bret. Review of Systems Constitutional: as per Subjective / HPI Gastrointestinal: as per Subjective / HPI Genitourinary: as per Subjective / HPI Physical Exam Constitutional: well developed and well nourished; no acute distress and not ill appearing Respiratory: normal respiratory effort and able to speak in complete sentences; no respiratory distress and no labored breathing Cardiovascular: Extremities: no pedal edema Gastrointestinal (Abdomen): Inspection/Auscultation: abdomen normal to inspection; abdomen not distended Percussion/Palpation: abdomen soft; abdomen nontender Musculoskeletal: Head/Neck/Chest: normocephalic and head atraumatic Neurologic: moves all extremities and awake Psychiatric: Orientation: alert and oriented x 3 Genitourinary: no CVA tenderness Results & Data Vital Signs (Past 12 Hours) Vital Signs Temp Pulse Resp BP Pulse Ox 02/24/20 11:40 36.7 C 61 16 158/84 H 99 02/24/20 07:14 36.5 C 65 16 135/84 98 02/24/20 03:09 36.5 C 65 16 149/83 H 98 PG Care Time/CCT Total # of Minutes Spent Total Time Spent with Patient: Total time spent is greater than 50% in coordination of care (as documented) at patient's floor/unit and/or counseling patient: Coding Level of Care Code 18536 Subseq Hosp Care Lvl 2 Diagnoses Kidney stone on right side N20.0 Ureteral stricture, right N13.5
[2020-02-24] MEDS ORDERED: SOD PHOSPHATE/SOD BIPHOSPHATE ENEMA 132 ML BTL PR STA (13:37)
--- NOTE | 2020-02-24 16:01 | XRay Report ---
XR abdomen 2V w PA chest CLINICAL HISTORY: severe constipation; ileus?? Pain COMPARISON STUDY: No previous studies for comparison. FINDINGS: The soft tissues, psoas shadows, renal outlines and intestinal gas pattern appear normal. T here is no evidence for bowel obstruction. There is no evidence for free intraperitoneal air. No abno rmal abdominal calcifications are seen. A frontal view of the chest was performed and is unremarkable . Right ureteral stent. Postoperative changes lumbar spine. Nonobstructive bowel pattern. IMPRESSION: No acute process of the abdomen or chest. Right ureteral stent . Nonobstructive bowel pattern. ACT 112: Negative or not required by law. The above report was generated using voice recognition software. It may contain grammatical, syntax or spelling errors. Electronically signed by: Evelio Cabral M.D. 02/24/2020 4:00 PM
--- NOTE | 2020-02-24 17:05 | Hospitalist Progress Note ---
Date of Service February 24, 2020 Assessment & Plan (1) Kidney stone on right side: POD #1 s/p cysto with bladder stones/debris in bladder -- removed. Right sided ureteral stricture - dilated. Right sided ureteral stone - removed. stent placed. Appreciate urology assistance. Having bladder spasms, incontinence, etc - ditropan 5mg po bid prn. Tramadol prn. Urine cx x 2 without pathogen. (2) Ureteral stricture, right: POD #1 s/p dilatation. stone and stricture caused her hydronephrosis. (3) Acute renal failure: obstructive from kidney stone and ureteral stricture. resolved. BMP in am for stability. (4) CKD (chronic kidney disease) stage 3, GFR 30-59 ml/min: CrCL today is nearly 60 thus, CKD is more so stage 2 (5) Hydronephrosis: right-sided - as above (6) Hyperlipidemia: holding statin for now resume at discharge (7) Hypertension: HCTZ, ARB, and BB thus far are all on hold resume metoprolol xl today (8) Diabetes: holding oral agents cont novolog correction/carb coverage HbA1C 6.2% had hypoglycemia yesterday in setting of fasting state - resolved (9) GERD (gastroesophageal reflux disease): prilosec not on formulatory use protonix in [place] (10) Chronic low back pain: with surgery in past cont to hold celebrex due to hematuria, etc tramadol prn lidoderm patches prn k-pad heat (11) Anxiety: Cont lorazepam 0.5 mg prn (12) Constipation: dulcolax suppos x 1 not effective fleets x 1 effective - moderate stool, but stomach still sore x-rays obtained -- most stool is in transverse colon no ileus miralax + senna daily for bowel maintenance limit narcotics if possible (13) DVT prophylaxis: SCDs for now and ambulation watch overnight due to ongoing urinary symptoms and constipation issues Admission and Anticipated Discharge Date Admission Date: February 22, 2020 Subjective c/o ongoing constipation. no BM in 5 days. also with mild gross hematuria, bladder spasms, and urinary incontinence. chronic low back pain persists. eating fair. no dysuria. called [facility] in [place] -- urine cx from 02/20 negative. Review of Systems Constitutional: no fever, no chills, no fatigue and no anorexia Respiratory: no cough and no dyspnea Cardiovascular: no chest pain Gastrointestinal: + abdominal pain and + constipation; no nausea and no vomiting Genitourinary: + urinary frequency, + urinary urgency, + urinary incontinence and + post-void dribbling Physical Exam Constitutional: well developed, well nourished and + obese; no acute distress and no altered mental status ENMT: external ear and nose normal, oropharynx normal Respiratory: normal respiratory effort, lungs clear to auscultation Cardiovascular: Rate/Rhythm: regular rate and regular rhythm Heart Sounds: normal S1 and normal S2; no murmur Vessels: posterior tibial pulses present and dorsalis pedis pulses present; no JVD Extremities: no edema Gastrointestinal (Abdomen): normal bowel sounds, soft, nontender, no hepatosplenomegaly Psychiatric: A+Ox3, euthymic affect Results & Data Results & Data ([facility]) Vital Signs (Past 12 Hours) Vital Signs Temp Pulse Resp BP Pulse Ox 02/24/20 16:28 36.6 C 69 16 163/87 H 97 02/24/20 11:40 36.7 C 61 16 158/84 H 99 02/24/20 07:14 36.5 C 65 16 135/84 98 Laboratory Results Laboratory Results - last 24 hr 02/23/20 02/23/20 02/23/20 16:39 17:10 18:16 WBC RBC Hgb Hct MCV MCH MCHC RDW Std Deviation RDW Coeff of Sari Plt Count MPV Sodium Potassium Chloride Carbon Dioxide Anion Gap BUN Creatinine Est Cr Clr Drug Dosing Est GFR ( Amer) Est GFR (Non-Af Amer) BUN/Creatinine Ratio Glucose POC Glucose 75 68 L* Calcium Stone Source Pending Stone Weight Pending Stone Composition Pending Stone Composition 2 Pending 02/23/20 02/23/20 02/23/20 18:18 18:38 18:57 WBC RBC Hgb Hct MCV MCH MCHC RDW Std Deviation RDW Coeff of Sari Plt Count MPV Sodium Potassium Chloride Carbon Dioxide Anion Gap BUN Creatinine Est Cr Clr Drug Dosing Est GFR ( Amer) Est GFR (Non-Af Amer) BUN/Creatinine Ratio Glucose POC Glucose 65 L* 67 L* 86 Calcium Stone Source Stone Weight Stone Composition Stone Composition 2 02/23/20 02/23/20 02/23/20 19:30 20:43 Unknown WBC RBC Hgb Hct MCV MCH MCHC RDW Std Deviation RDW Coeff of Sari Plt Count MPV Sodium Potassium Chloride Carbon Dioxide Anion Gap BUN Creatinine Est Cr Clr Drug Dosing Est GFR ( Amer) Est GFR (Non-Af Amer) BUN/Creatinine Ratio Glucose POC Glucose 104 H 136 H Calcium Stone Source Pending Stone Weight Pending Stone Composition Pending Stone Composition 2 Pending 02/24/20 02/24/20 02/24/20 04:45 04:45 08:24 WBC 4.95 RBC 3.52 L Hgb 10.4 L Hct 32.8 L MCV 93.2 MCH 29.5 MCHC 31.7 L RDW Std Deviation 49.7 H RDW Coeff of Sari 14.5 Plt Count 185 MPV 10.8 H Sodium 143 Potassium 3.9 Chloride 113 H Carbon Dioxide 24 Anion Gap 6.0 BUN 21 H Creatinine 0.91 D Est Cr Clr Drug Dosing 59.1 Est GFR ( Amer) 73.6 Est GFR (Non-Af Amer) 63.5 BUN/Creatinine Ratio 22.9 H Glucose 80 POC Glucose 86 Calcium 8.3 L Stone Source Stone Weight Stone Composition Stone Composition 2 02/24/20 12:33 WBC RBC Hgb Hct MCV MCH MCHC RDW Std Deviation RDW Coeff of Sari Plt Count MPV Sodium Potassium Chloride Carbon Dioxide Anion Gap BUN Creatinine Est Cr Clr Drug Dosing Est GFR ( Amer) Est GFR (Non-Af Amer) BUN/Creatinine Ratio Glucose POC Glucose 92 Calcium Stone Source Stone Weight Stone Composition Stone Composition 2 Diagnostic Findings [facility] Care Time/CCT Total # of Minutes Spent Total Time Spent with Patient: Total time spent is greater than 50% in coordination of care (as documented) at patient's floor/unit and/or counseling patient: Coding Level of Care Code 07774 Subseq Hosp Care Lvl 3 Diagnoses Kidney stone on right side N20.0 Ureteral stricture, right N13.5 Acute renal failure N17.9 Acute renal failure type: unspecified CKD (chronic kidney disease) stage 3, GFR 30-59 ml/min N18.3 Hydronephrosis N13.30 Hydronephrosis type: unspecified Hyperlipidemia E78.2 Hyperlipidemia type: mixed hyperlipidemia Hypertension I10 Hypertension type: essential hypertension Diabetes E11.9 Diabetes mellitus complication status: without complication Diabetes mellitus superintendent terminal insulin use: without superintendent terminal use Diabetes mellitus type: type 2 GERD (gastroesophageal reflux disease) K21.9 Esophagitis presence: esophagitis presence not specified Chronic low back pain M54.5; G89.29 Back pain laterality: unspecified Sciatica presence: without sciatica Anxiety F41.9 Constipation K59.09 Constipation type: other constipation type DVT prophylaxis Z29.9 (1) Hydronephrosis Hydronephrosis type: unspecified Qualified Code(s): N13.30 - Unspecified hydronephrosis (2) Diabetes Diabetes mellitus complication status: without complication Diabetes mellitus superintendent terminal insulin use: without superintendent terminal use Diabetes mellitus type: type 2 Qualified Code(s): E11.9 - Type 2 diabetes mellitus without complications (3) Chronic low back pain Back pain laterality: unspecified Sciatica presence: without sciatica Qualified Code(s): M54.5 - Low back pain; G89.29 - Other chronic pain (4) Acute renal failure Acute renal failure type: unspecified Qualified Code(s): N17.9 - Acute kidney failure, unspecified (5) Hyperlipidemia Hyperlipidemia type: mixed hyperlipidemia Qualified Code(s): E78.2 - Mixed hyperlipidemia (6) GERD (gastroesophageal reflux disease) Esophagitis presence: esophagitis presence not specified Qualified Code(s): K21.9 - Gastro-esophageal reflux disease without esophagitis (7) Hypertension Hypertension type: essential hypertension Qualified Code(s): I10 - Essential (primary) hypertension (8) Constipation Constipation type: other constipation type Qualified Code(s): K59.09 - Other constipation
[2020-02-24] MEDS ORDERED: OXYBUTYNIN CHLORIDE 5 MG TAB PO STA (17:07)
[2020-02-24] MEDS ORDERED: POLYETHYLENE (MIRALAX) 17 GM PACK PO ONE (17:15)
[2020-02-24] MEDS ORDERED: SENNA 8.6 MG TAB PO ONE (17:15)
[2020-02-24] MEDS ORDERED: OXYBUTYNIN CHLORIDE 5 MG TAB PO PRN (17:24)
[2020-02-24] MEDS ORDERED: TRAMADOL HCL 50 MG TABLET PO PRN (17:25)
[2020-02-24] MEDS ORDERED: METOPROLOL SUCC 50MG EXT REL TAB PO STA (17:40)
[2020-02-24] MEDS: LIDOCAINE 5% 1 PATCH TD SCH (18:14)
[2020-02-25] MEDS: MELATONIN 3 MG TAB PO PRN (00:07)
[2020-02-25] MEDS: ACETAMINOPHEN 325 MG TAB PO PRN (00:07)
[2020-02-25 06:48] LABS: Hematocrit (blood only) 32.8 % (37-47); Hemoglobin 10.6 g/dL (12.0-16.0); Mean Corpuscular Hemoglobin 29.3 pg (25-34); Mean Corpuscular Hgb Conc 32.3 g/dL (32-36); Mean Corpuscular Volume 90.6 fL (80-100); Mean Platelet Volume 10.5 fL (7.4-10.4); Platelet Count 199 K/uL (130-400); RDW Coefficient of Variation 14.3 % (11.5-14.5); RDW Standard Deviation 47.3 fL (36.4-46.3); Red Blood Count 3.62 M/uL (4.2-5.4); White Blood Count 4.84 K/uL (4.8-10.8)
[2020-02-25 07:29] LABS: BUN Creatinine Ratio 15.3 (10-20); Calcium 8.7 mg/dl (8.5-10.1); Creatinine Clr Calc Pharmacy 52.6 ml/min; Est GFR (African American) 64.1; Est GFR (Non-African American) 55.3; Potassium 3.9 mmol/L (3.5-5.1)
[2020-02-25] MEDS: KETOROLAC TROMETHAMINE 15 MG/ML VIAL IV PRN (07:41)
[2020-02-25] MEDS ORDERED: SENNA 8.6 MG TAB PO SCH (09:00)
[2020-02-25] MEDS ORDERED: cephALEXin 500 MG CAP PO SCH (09:00)
[2020-02-25] MEDS ORDERED: METOPROLOL SUCC 50MG EXT REL TAB PO SCH (09:00)
[2020-02-25] MEDS: INSULIN ASPART 100 UNITS/ML 3 ML PEN SC SCH ×2 (09:18→13:00)
[2020-02-25] MEDS: LIDOCAINE 5% 1 PATCH TD SCH (09:19)
[2020-02-25] MEDS: POLYETHYLENE (MIRALAX) 17 GM PACK PO SCH (09:20)
--- NOTE | 2020-02-25 16:25 | Discharge Summary ---
Date of Service date of admission - February 22, 2020 date of discharge - February 25, 2020 Admission HPI Per Admitting Provider This is a 69 yo F with PMHx of HTN, HLD, DMII, chronic low back pain, anxiety, GERD who presents from [facility] as a transfer with R groin pain that began 1 day ago leading to nausea and vomiting, found to have mild-moderate Right hydronephrosis on imaging at [facility]. Creatinine is elevated, 2.2 at OSH compared to baseline of 1.2, and did not improve with hydration overnight. CT of the abdomen showed mild to moderate Right hydronephrosis/pelviectasis/ureterectasis without definite urinary calcification. 1-2 mm pelvic calcification in close proximity to distal right ureter but appears to be outside it likely phlebolith per CT AP but reported that there was phleboliths left residually, and no obstructing stone. Her pain worsened, and due to OSH not having urology, was transferred here after discussing with our urologist astronautical engineer. The pt reports her pain is well controlled currently, rated 3/10, but at its worst is a 10/10. It goes from the right flank area around her side into the RLQ. She has had some nausea today but no vomiting. She denies fever, chills or sweats. Principal Diagnosis right sided kidney stone and right sided ureteral stricture - s/p removal of stone, dilation of stricture, and placement of right-sided ureteral stent Discharge Exam Constitutional well developed, well nourished and + obese; no acute distress and no altered mental status ENMT external ear and nose normal, oropharynx normal Respiratory normal respiratory effort, lungs clear to auscultation Cardiovascular Rate/Rhythm: regular rate and regular rhythm Heart Sounds: normal S1 and normal S2; no murmur Vessels: posterior tibial pulses present and dorsalis pedis pulses present; no JVD Extremities: no edema Gastrointestinal (Abdomen) normal bowel sounds, soft, nontender, no hepatosplenomegaly Psychiatric A+Ox3, euthymic affect Discharge Data Allergies Allergy/AdvReac Type Severity Reaction Status Date / Time No Known Allergies Allergy Verified 02/05/20 08:18 Consultations [facility] - Art Cole DO Procedures Performed Operation Date: 02/23/20 12:55 Actual Procedures p Right Ureteral Stent Placement, Stone basket extraction(Right) - Art H. Cole, DO s Cystoscopy, Right Retrograde Pyelogram(Right) - Art Cole DO Ordered Studies 02/23/20 12:30 FL retrograde includes kub Routine Hospital Course (1) Kidney stone on right side: On 02/23/20 the patient was taken to the OR by Dr Art Cole where he performed cystoscopy. Stones/debris were found in the bladder and were removed. A right-sided ureteral stricture was also discovered and this was dilated. Finally a right-sided ureteral stone was seen and removed followed by ureteral stent placement on the right. Urine culture from [facility] was negative, and urine culture from [facility] was also negative. Post-op the patient had significant constipation as well as bladder spasms, incontinence, and mild gross hematuria. Urinary symptoms were difficult to control despite use of oxybutinin, pain meds, etc. Thus, on the afternoon of 02/25/2020, the patient's right-sided stent was removed. Following such her urinary incontinence resolved and she felt tremendously better. At discharge she was provided a prescription for oxybutinin to use on a prn basis. She was given a short course of oral keflex for UTI prophylaxis. Gross hematuria had resolved by time of discharge as well. She will follow-up with Dr Cole at the [facility] office within a couple of weeks of discharge. (2) Ureteral stricture, right: s/p dilatation. kidney stone and stricture caused her right-sided hydronephrosis. (3) Acute renal failure: obstructive etiology from her kidney stone and ureteral stricture. resolved. peak Cr 2.2, improving to 1 at discharge. (4) CKD (chronic kidney disease) stage 3, GFR 30-59 ml/min: CrCL appears to be in the 50s at baseline (5) Hydronephrosis: right-sided - see above (6) Hyperlipidemia: resume statin at discharge (7) Hypertension: HCTZ, ARB, and beta malick were held for much of her stay. these agents were resumed at discharge. (8) Diabetes: HbA1C 6.2%. metformin was held during the stay. had hypoglycemia on one occasion in the setting of a fasting state, and all other BSGs were very normal in the low 100s (without any medication). I recommended she cut her metformin to 500mg once daily with a meal. f/u with her PCP for this. (9) GERD (gastroesophageal reflux disease): continue PPI (10) Chronic low back pain: with surgery in the past tramadol prn lidoderm patches prn would hold NSAIDs at discharge due to recent acute renal failure, recent hematuria, recent urological procedures, etc. (11) Anxiety: Cont lorazepam 0.5 mg prn (12) Constipation: improved prior to discharge. this was an acute on chronic issue. recommended combination of miralax with senna at discharge for bowel maintenance. Total Time Total Time Spent Total Time Spent (In Minutes): 40 Total Time Includes: Examination of the Patient, Discharge Planning, Medication Reconciliation and Communication With Other Providers Discharge Plan Discharge Items Patient Disposition: Home - Self-Care Reason For Visit: right-sided kidney stone Discharge Diagnosis: right-sided kidney stone -- cystoscopy, removal of stones from bladder, removal of stone from right ureter, dilation of right ureter, right ureteral stent placement - all by Dr Art Cole Activity: As commented below Activity Comment: gradually increase your activity over the next few days Non-emergency contact: Primary Care Provider and Urologist Call non-emergency contact if: you have any medication questions, your symptoms worsen, your pain is not controlled, your pain is worsening, your pain is unusual for you, your pain is concerning for you and you have a fever Follow-up/Referrals: Art Cole DO [Physician] - (see Dr Cole within 5-7 days ) Justino Tovar DO [Primary Care Provider] - (please see Dr Ho within 2 weeks ) Diet: Carb Consistent or DM2 Addtl Attending Provider Instructions: You were treated for your right-sided kidney stone by Dr Art Hernandez with [facility]. He performed the procedures noted in "discharge diagnoses" above. Your stent was removed on 02/25/2020. Your urine culture from [facility] and your urine culture from [facility] were both negative. As a precautionary measure, however, I am going to send you home on a few more days of antibiotics. Recommendations - 1. cephalexin 500mg twice daily for 4 more days; start TONIGHT; this is your antibiotic. 2. for bladder spasms/pain - oxybutinin 5mg every 12 hours as needed; this can cause dry mouth and constipation. 3. for your diabetes - since your hemoglobin a1c is 6.2% and you had borderline low blood sugars at times while here I would recommend cutting your metformin dose back to 500mg ONCE A DAY. Take with your morning meal. 4. for your chronic back pain - lidoderm patches up to 2 or 3 at a time; place on for 12 hours, remove for 12 hours. 5. at least until your follow-up appointments please STOP any celebrex or motrin use. Ok to use tylenol for aches/pains. 6. for constipation - take a combination of miralax and/or senna - both [id number]. Follow-up - see separate section Return to any hospital if - * you have fevers over 100.4 degrees * you have worsening abdominal pain or back pain * you have severe diarrhea * you have worsening urinary symptoms including but not limited to bloody urine, painful urination, severe urinary incontinence, inability to void, etc * any other concerns I enjoyed caring for you and speedy recovery! -Dr Clement Pending Studies at Discharge: Yes Studies:: kidney stone analysis Stand-Alone Forms: My [facility] [employer], Smoking Cessation Medications and DC Order Prescriptions: New cephalexin 500 mg Capsule 500 mg PO BID 4 Days Qty: 8 RF: 0 lidocaine 5 % Adhesive Patch,Medicated 2 patch transdermal QAM Qty: 30 RF: 0 oxybutynin chloride 5 mg Tablet 5 mg PO BID PRN (Reason: bladder spasms) Qty: 20 RF: 0 Continued losartan 100 mg tablet 100 mg PO DAILY RF: 0 metoprolol succinate 50 mg capsule,sprinkle,ER 24hr 50 mg PO DAILY RF: 0 hydrochlorothiazide 25 mg tablet 25 mg PO DAILY RF: 0 omeprazole 40 mg capsule,delayed release(DR/EC) 40 mg PO DAILY RF: 0 atorvastatin 20 mg tablet 20 mg PO DAILY RF: 0 aspirin 81 mg tablet,delayed release (DR/EC) 81 mg PO DAILY RF: 0 lorazepam 0.5 mg tablet 0.5 mg PO DAILY PRN (Reason: Anxiety) RF: 0 tramadol 50 mg tablet 50 mg PO Q8H PRN (Reason: Pain) RF: 0 baclofen 20 mg tablet 20 mg PO TID PRN (Reason: Muscle Spasm) RF: 0 Changed metformin 500 mg tablet 500 mg PO QAM Qty: 30 RF: 0 Discontinued celecoxib 100 mg capsule 100 mg PO BID RF: 0 ibuprofen 800 mg tablet 800 mg PO TID PRN (Reason: Pain) RF: 0 Discharge Orders: Discharge Order (Routine); Ordered 02/25/20 Ordered By: Lito Rivas/Other Patient Handouts: A1C Admission Data Admit Date/Time: 02/22/20 13:48 Attending Provider: Lito Clement Admit Provider: Jesús Sparks Primary Care Provider: Justino Tovar Other Providers: Bertin Stanley ; Art Cole Coding Level of Care Code D/C Day Management >30 mins Diagnoses Kidney stone on right side N20.0 Ureteral stricture, right N13.5 Acute renal failure N17.9 Acute renal failure type: unspecified CKD (chronic kidney disease) stage 3, GFR 30-59 ml/min N18.3 Hydronephrosis N13.30 Hydronephrosis type: unspecified Hyperlipidemia E78.2 Hyperlipidemia type: mixed hyperlipidemia Hypertension I10 Hypertension type: essential hypertension Diabetes E11.9 Diabetes mellitus complication status: without complication Diabetes mellitus tank terminal gauger insulin use: without tank terminal gauger use Diabetes mellitus type: type 2 GERD (gastroesophageal reflux disease) K21.9 Esophagitis presence: esophagitis presence not specified Chronic low back pain M54.5; G89.29 Back pain laterality: unspecified Sciatica presence: without sciatica Anxiety F41.9 Constipation K59.09 Constipation type: other constipation type
[2020-02-27 12:55] LABS: Component 2 DNR; Source BLADDER STONE
[2020-02-27 12:55] LABS: Component 2 DNR; Source URETER STONE
== END 2020-02-25 17:53 | disposition home or self-care (01) | DRG 661 ==
LOC: 3N 13:48 → SUATTDRO 13:48
DX: M96.1 Postlaminectomy syndrome, not elsewhere classified; K59.00 Constipation, unspecified; K21.9 Gastro-esophageal reflux disease without esophagitis; M54.16 Radiculopathy, lumbar region; N17.9 Acute kidney failure, unspecified; N13.2 Hydronephrosis with renal and ureteral calculous obstruction; E11.649 Type 2 diabetes mellitus with hypoglycemia without coma; N18.3 Chronic kidney disease, stage 3 (moderate); I12.9 Hypertensive chronic kidney disease with stage 1 through stage 4 chronic kidney disease, or unspecified chronic kidney disease; E11.22 Type 2 diabetes mellitus with diabetic chronic kidney disease; N32.89 Other specified disorders of bladder; Z79.84 Long term (current) use of oral hypoglycemic drugs; N21.0 Calculus in bladder; R32 Unspecified urinary incontinence; E78.5 Hyperlipidemia, unspecified; R31.0 Gross hematuria; Z79.899 Other long term (current) drug therapy; Z79.82 Long term (current) use of aspirin

== ENCOUNTER 2021-12-21 16:06 | Observation (INO) ==
[2021-12-21] MEDS ORDERED: ASPIRIN CHEW 324 MG PO STA (16:53)
[2021-12-21] MEDS ORDERED: SODIUM CHLORIDE 0.9% 1000ML 1,000 ML IV ONE (16:53)
--- NOTE | 2021-12-21 16:55 | Emergency Department Note ---
Impression & Plan Chest pain, Hypertension ED Provider Note NAME: DAILY BAUTISTA AGE: 71 SEX: F : 1950 ARRIVES VIA: Walk-In INFORMANT: Patient ED PROVIDER(S): Sathya Gomez DO CHIEF COMPLAINT: chest pain HPI: Patient is a 71-year-old female with a past medical history of diabetes, hypertension, hyperlipidemia who presents ER for midsternal chest heaviness/pressure which has been present for the past week. There is no exacerbating or remitting factors. She notes that bilateral arms feel heavy as well as her entire body as she feels weak and rundown. No headache or change in vision. No dysuria, urgency, or frequency. She denies any previous aorta issues. She has been taking her blood pressure medications and has not missed any doses. She denies any belly pain. ROS: See above HPI for pertinent positives & negatives. A total of 10 systems reviewed and were otherwise negative. PAST MEDICAL HISTORY:See Below PAST SURGICAL HISTORY:See Below FAMILY HISTORY:See Below SOCIAL HISTORY:See Below HOME MEDICATIONS:See Below ALLERGIES:See Below VITALS:See Below PHYSICAL EXAMINATION: GENERAL: Sitting up in bed, alert, well appearing, well nourished, no distress, non-toxic EYE EXAM: normal conjunctiva. OROPHARYNX: no exudate, no erythema, lips, buccal mucosa, and tongue normal and mucous membranes are moist NECK: supple, no nuchal rigidity, no adenopathy, non-tender LUNGS: Clear to auscultation. Normal chest wall mechanics HEART: no murmurs, S1 normal and S2 normal ABDOMEN: abdomen soft, non-tender, normo-active bowel sounds, no masses, no rebound or guarding. UPPER EXTREMITIES: upper extremities are grossly normal. LOWER EXTREMITIES: No pitting edema. NEURO EXAM: Normal sensorium, cranial nerves II-XII grossly intact, normal speech, no gross weakness of arms, no gross weakness of legs. MEDICAL DECISION MAKING: Patient is a 71-year-old female who presents ER for above-stated complaint. IV was was established and blood work was obtained. With her systolics in the 230s and chest pressure going through into the back CT angio was performed which showed no dissection. Labs show no significant leukocytosis or anemia. BMP along with LFTs bilirubin and lipase was remarkable for a lipase slightly elevated at 85. Troponins were negative x2. COVID was negative. EKG was nondiagnostic. Systolic pressures were in the 260s. Patient was given hydralazine and systolics trend down to the 170s. With her significant elevation of blood pressure did discuss with the hospitalist for observation. She was also given aspirin. Hydralazine was given as initial troponin was negative and heart rate was 60. Triage Nursing notes reviewed. Limited review of prior medical records performed Vital Signs: reviewed and remarkable for HTN Differential diagnosis: Differential diagnoses includes but is not limited to acute coronary syndrome, myocardial infarction, pericarditis, pulmonary embolus, aortic dissection, pneumonia, pneumothorax, musculoskeletal, shingles, esophageal. ER treatment provided: See below Diagnostics interpreted by me: ECG: Sinus rhythm rate of 58 Left axis No PVCs QTC 433 Cardiac Monitoring: An order was placed for continuous cardiac monitoring. The monitor shows a rate of 60 with sinus rhythm. Laboratory studies: As stated above and show below. Imaging studies: CT dissection study was negative Consultation(s): none Procedures: none Critical Care: None Past Med/Surg History Medical History (Updated 12/21/21 @ 22:17 by Sathya Gomez DO) Anxiety Chronic low back pain Diabetes mellitus, type 2 GERD (gastroesophageal reflux disease) Lumbar radicular pain Postlaminectomy syndrome of lumbosacral region L2-S1 posterior fusion 03/2016 Surgical History H/O cardiac radiofrequency ablation H/O rotator cuff surgery right H/O: hysterectomy Previous back surgery L2-S1 posterior fusion (03/2016) Family History Other No pertinent family history Social History Smoking Status: Never smoker Second Hand Exposure: No; Hx Alcohol Use: No Hx Substance Use: No Preferred Language: [place]al[place] Communication Ability: Effective Visual Impairment: Limited Hearing Ability: Normal Section Supervisor Required: No Beliefs That Will Affect Care: None marital status: Current Living Situation: Spouse current occupational status: retired Feels Safe at Home: Yes Assistive Devices: Glasses Allergies Allergies Allergy/AdvReac Type Severity Reaction Status Date / Time No Known Allergies Allergy Verified 12/21/21 18:30 Home Meds Home Medications Medication Instructions Recorded Confirmed aspirin 81 mg tablet,delayed 81 mg PO HS 10/27/19 12/21/21 release atorvastatin 20 mg tablet 20 mg PO DAILY 10/27/19 12/21/21 metoprolol succinate 50 mg capsule 50 mg PO DAILY 10/27/19 12/21/21 sprinkle, ext. release 24 hr omeprazole 40 mg capsule,delayed 40 mg PO DAILY 10/27/19 12/21/21 release lorazepam 0.5 mg tablet 0.5 mg PO DAILY PRN 04/05/20 12/21/21 allopurinol 100 mg tablet 100 mg PO DAILY 12/21/21 12/21/21 ascorbic acid (vitamin C) 500 mg 500 mg PO DAILY 12/21/21 12/21/21 chewable tablet (Vitamin C) baclofen 10 mg tablet 10 mg PO Q8H PRN 12/21/21 12/21/21 xskchfm-[id number]-atwa tablet 1 tab PO BID 12/21/21 12/21/21 donepezil 5 mg tablet 5 mg PO HS 12/21/21 12/21/21 meloxicam 15 mg tablet 15 mg PO DAILY 12/21/21 12/21/21 polyethylene glycol 3350 17 gram 17 g PO DAILY 12/21/21 12/21/21 oral powder packet (Miralax) pregabalin 150 mg capsule 150 mg PO BID 12/21/21 12/21/21 psyllium husk 3.4 gram/5.4 gram 2 tsp PO DAILY 12/21/21 12/21/21 oral powder (Metamucil) zolpidem 10 mg tablet 10 mg PO HS 12/21/21 12/21/21 Results & Data (ED) Vital Signs Vital Signs - 24 hr 12/21/21 16:10 12/21/21 16:36 12/21/21 17:01 Temperature 36.4 C L Temperature Source Temporal Artery Scan Pulse Rate 61 54 L Pulse Rate [Right Finger] Pulse Rate from SpO2 Sensor 53 L Pulse Rhythm Regular Pulse Rhythm [Right Finger] Pulse Strength Normal Pulse Strength [Right Finger] Respiratory Rate 20 14 Respiratory Effort / Characteristics Non-Labored Spontaneous Respiratory Depth Normal Respiratory Pattern Regular Blood Pressure 177/121 H 218/89 H Blood Pressure [Left Arm] Blood Pressure Mean 139 132 Blood Pressure Mean [Left Arm] Blood Pressure Position Sitting Blood Pressure Position [Left Arm] Pulse Oximetry 96 98 Oxygen Delivery Method Room Air Room Air Sepsis Recent Fever Within 48 Hours No Sepsis New/Unexplained Change in Mental Status No Sepsis Action Taken by Nursing No Action Required 12/21/21 17:31 12/21/21 17:41 12/21/21 18:00 Temperature Temperature Source Pulse Rate 51 L 53 L Pulse Rate [Right Finger] 61 Pulse Rate from SpO2 Sensor 50 L 59 L Pulse Rhythm Pulse Rhythm [Right Finger] Regular Pulse Strength Pulse Strength [Right Finger] Normal Respiratory Rate 13 13 18 Respiratory Effort / Characteristics Non-Labored Respiratory Depth Normal Respiratory Pattern Regular Blood Pressure 220/110 H 210/101 H Blood Pressure [Left Arm] 219/95 H Blood Pressure Mean 146 137 Blood Pressure Mean [Left Arm] 136 Blood Pressure Position Blood Pressure Position [Left Arm] Lying Pulse Oximetry 97 99 99 Oxygen Delivery Method Room Air Sepsis Recent Fever Within 48 Hours Sepsis New/Unexplained Change in Mental Status Sepsis Action Taken by Nursing 12/21/21 18:04 12/21/21 18:10 12/21/21 18:30 Temperature Temperature Source Pulse Rate 74 66 60 Pulse Rate [Right Finger] Pulse Rate from SpO2 Sensor 65 64 59 L Pulse Rhythm Pulse Rhythm [Right Finger] Pulse Strength Pulse Strength [Right Finger] Respiratory Rate 13 12 14 Respiratory Effort / Characteristics Respiratory Depth Respiratory Pattern Blood Pressure 219/95 H 188/80 H Blood Pressure [Left Arm] Blood Pressure Mean 136 116 Blood Pressure Mean [Left Arm] Blood Pressure Position Blood Pressure Position [Left Arm] Pulse Oximetry 100 99 97 Oxygen Delivery Method Sepsis Recent Fever Within 48 Hours Sepsis New/Unexplained Change in Mental Status Sepsis Action Taken by Nursing 12/21/21 18:58 12/21/21 19:00 12/21/21 19:30 Temperature Temperature Source Pulse Rate 57 L 58 L 59 L Pulse Rate [Right Finger] Pulse Rate from SpO2 Sensor 56 L 57 L 60 Pulse Rhythm Pulse Rhythm [Right Finger] Pulse Strength Pulse Strength [Right Finger] Respiratory Rate 13 13 16 Respiratory Effort / Characteristics Respiratory Depth Respiratory Pattern Blood Pressure 202/83 H 179/82 H Blood Pressure [Left Arm] Blood Pressure Mean 122 114 Blood Pressure Mean [Left Arm] Blood Pressure Position Blood Pressure Position [Left Arm] Pulse Oximetry 98 98 99 Oxygen Delivery Method Sepsis Recent Fever Within 48 Hours Sepsis New/Unexplained Change in Mental Status Sepsis Action Taken by Nursing 12/21/21 19:31 12/21/21 20:00 Temperature Temperature Source Pulse Rate Pulse Rate [Right Finger] Pulse Rate from SpO2 Sensor 66 63 Pulse Rhythm Pulse Rhythm [Right Finger] Pulse Strength Pulse Strength [Right Finger] Respiratory Rate 16 24 Respiratory Effort / Characteristics Respiratory Depth Respiratory Pattern Blood Pressure 235/115 H 203/104 H Blood Pressure [Left Arm] Blood Pressure Mean 155 137 Blood Pressure Mean [Left Arm] Blood Pressure Position Blood Pressure Position [Left Arm] Pulse Oximetry 96 98 Oxygen Delivery Method Sepsis Recent Fever Within 48 Hours Sepsis New/Unexplained Change in Mental Status Sepsis Action Taken by Nursing Laboratory Data Result diagrams: 12/21/21 16:57 12/21/21 16:57 Lab Results 12/21/21 12/21/21 12/21/21 Range/Units 16:57 16:57 16:57 WBC 6.80 (4.8-10.8) K/uL RBC 4.77 (4.2-5.4) M/uL Hgb 14.1 (12.0-16.0) g/dL Hct 44.5 (37-47) % MCV 93.3 (80-100) fL MCH 29.6 (25-34) pg MCHC 31.7 L (32-36) g/dL RDW Std Deviation 51.8 H (36.4-46.3) fL RDW Coeff of Sari 15.1 H (11.5-14.5) % Plt Count 199 (130-400) K/uL MPV 11.7 H (7.4-10.4) fL Immature Gran % (Auto) 0.1 % Neut % (Auto) 48.7 % Lymph % (Auto) 40.4 % [place] % (Auto) 8.7 % Eos % (Auto) 1.8 % Baso % (Auto) 0.3 % Neut # (Auto) 3.31 (1.4-6.5) K/uL Lymph # (Auto) 2.75 (1.2-3.4) K/uL [place] # (Auto) 0.59 (0.11-0.59) K/uL Eos # (Auto) 0.12 (0-0.5) K/uL Baso # (Auto) 0.02 (0-0.2) K/uL Immature Gran # (Auto) 0.01 (0.00-0.02) K/uL Sodium 139 (136-145) mmol/L Potassium 4.1 (3.5-5.1) mmol/L Chloride 103 (98-107) mmol/L Carbon Dioxide 30 (21-32) mmol/L Anion Gap 6 (3-11) BUN 25 H (6-23) mg/dl Creatinine 1.13 (0.6-1.2) mg/dl Est Cr Clr Drug Dosing 47.6 ml/min Est GFR ( Amer) 55.8 ml/min Est GFR (Non-Af Amer) 48.2 ml/min BUN/Creatinine Ratio 22.1 H (10-20) Glucose 103 H (70-99(Fasting)) mg/dl Calcium 9.5 (8.5-10.1) mg/dl Total Bilirubin 0.7 (0.2-1.0) mg/dl AST 18 (13-39) U/L ALT 22 (7-52) U/L Alkaline Phosphatase 77 (34-104) U/L Troponin I High Sens 3.9 (0-14) pg/ml Total Protein 7.3 (6.0-8.3) gm/dl Albumin 4.3 (3.4-5.0) gm/dl Globulin 3.0 (2.5-4.0) gm/dl Albumin/Globulin Ratio 1.4 (0.9-2) Lipase 85 H (11-82) U/L SARS-CoV-2, RNA, NAAT (NEGATIVE) 12/21/21 12/21/21 Range/Units 18:27 19:57 WBC (4.8-10.8) K/uL RBC (4.2-5.4) M/uL Hgb (12.0-16.0) g/dL Hct (37-47) % MCV (80-100) fL MCH (25-34) pg MCHC (32-36) g/dL RDW Std Deviation (36.4-46.3) fL RDW Coeff of Sari (11.5-14.5) % Plt Count (130-400) K/uL MPV (7.4-10.4) fL Immature Gran % (Auto) % Neut % (Auto) % Lymph % (Auto) % [place] % (Auto) % Eos % (Auto) % Baso % (Auto) % Neut # (Auto) (1.4-6.5) K/uL Lymph # (Auto) (1.2-3.4) K/uL [place] # (Auto) (0.11-0.59) K/uL Eos # (Auto) (0-0.5) K/uL Baso # (Auto) (0-0.2) K/uL Immature Gran # (Auto) (0.00-0.02) K/uL Sodium (136-145) mmol/L Potassium (3.5-5.1) mmol/L Chloride (98-107) mmol/L Carbon Dioxide (21-32) mmol/L Anion Gap (3-11) BUN (6-23) mg/dl Creatinine (0.6-1.2) mg/dl Est Cr Clr Drug Dosing ml/min Est GFR ( Amer) ml/min Est GFR (Non-Af Amer) ml/min BUN/Creatinine Ratio (10-20) Glucose (70-99(Fasting)) mg/dl Calcium (8.5-10.1) mg/dl Total Bilirubin (0.2-1.0) mg/dl AST (13-39) U/L ALT (7-52) U/L Alkaline Phosphatase (34-104) U/L Troponin I High Sens 2.7 (0-14) pg/ml Total Protein (6.0-8.3) gm/dl Albumin (3.4-5.0) gm/dl Globulin (2.5-4.0) gm/dl Albumin/Globulin Ratio (0.9-2) Lipase (11-82) U/L SARS-CoV-2, RNA, NAAT NEGATIVE (NEGATIVE) Administered Medications Discontinued Medications Al Hydrox/Mg Hydrox/Simethicone (Gi Cocktail Ed Use) 1 dose PO NOW ONE Stop: 12/21/21 20:17 Last Admin: 12/21/21 20:21 Dose: 1 dose Documented by: [id number] Amlodipine Besylate (Amlodipine Besylate 5 Mg Tab) 5 mg PO NOW ONE Stop: 12/21/21 20:07 Last Admin: 12/21/21 20:21 Dose: 5 mg Documented by: [id number] Aspirin (Aspirin Chew 324 Mg) 324 mg PO NOW STA Stop: 12/21/21 16:54 Last Admin: 12/21/21 17:11 Dose: 324 mg Documented by: [id number] Hydralazine HCl (Hydralazine Hcl 20 Mg/Ml Vial) 10 mg IV NOW STA Stop: 12/21/21 17:14 Last Admin: 12/21/21 17:37 Dose: 10 mg Documented by: [id number] Sodium Chloride (Nss 1000ml) 1,000 mls @ 999 mls/hr IV .Q1H1M ONE Stop: 12/21/21 17:53 Last Infusion: 12/21/21 18:17 Dose: 0 mls/hr Documented by: [id number] Admin: 12/21/21 17:11 Dose: 999 mls/hr Documented by: [id number] Ioversol (Optiray 320 125ml) 120 ml IV ONCE ONE Stop: 12/21/21 17:56 Last Admin: 12/21/21 17:56 Dose: 120 ml Documented by: [id number] Losartan Potassium (Losartan Potassium 25 Mg Tab) 25 mg PO NOW ONE Stop: 12/21/21 20:01 Last Admin: 12/21/21 20:18 Dose: Not Given Documented by: [id number] Imaging Data Radiologist's Impression: Chest X-Ray 12/21/21 16:36 XR chest 1V portable CLINICAL HISTORY: Atypical chest pain TECHNIQUE: Single frontal radiograph of the chest was obtained. Comparison: Comparison is made to chest and abdomen radiographs 02/24/2020 FINDINGS: No lines and tubes are seen. The cardiomediastinal silhouette is normal. The lungs are clear. No evidence of pleural effusion or pneumothorax. IMPRESSION: No acute chest disease. ACT 112: Negative or not required by law. Electronically signed by: Vinh Alcala M.D. 12/21/2021 5:07 PM Chest CTA 12/21/21 16:52 CT angio chest dissec wo/w con CLINICAL HISTORY: mid sternal chest pain and arm pain htn sbp 230s TECHNIQUE: Multidetector row helical CT of the chest was performed before and after injection of IV contrast. Coronal and sagittal reformations were obtained. Automated dose lowering techniques and/or adjustment according to patient size were utilized for this exam. CT DOSE: 1383.16 mGy.cm Comparison: None available at the time of this dictation. FINDINGS: Lungs and pleura: Atelectasis is seen in the left lung base. Heart and pericardium: Heart size is normal. No pericardial effusion. Vessels: Moderate atherosclerotic changes in the aorta and coronary arteries. No evidence of pulmonary embolus or aortic dissection. Mediastinum and jax: Unremarkable. Chest wall and lower neck: Unremarkable. Abdomen: Unremarkable. Bones: Degenerative changes in the thoracic spine. IMPRESSION: No evidence of aortic dissection. No pulmonary embolus is seen. ACT 112: Negative or not required by law. Electronically signed by: Vinh Alcala M.D. 12/21/2021 6:02 PM Discharge Plan Visit Data Chief Complaint: Chest Pain Stated Complaint: LIGHT HEADED, ARM NUMB, CHEST PAIN ED Provider: Sathya Gomez Discharge Problem: Chest pain, Hypertension Patient Disposition: Admitted As Inpatient Discharge Instructions Interventions: ED Discharge Assessment Last Done: 12/21/21 21:25 Discharge Problem: Chest pain Qualifiers: Chest pain type: unspecified Qualified Code(s): R07.9 - Chest pain, unspecified Hypertension Qualifiers: Hypertension type: unspecified Qualified Code(s): I10 - Essential (primary) hypertension
--- NOTE | 2021-12-21 17:09 | XRay Report ---
XR chest 1V portable CLINICAL HISTORY: Atypical chest pain TECHNIQUE: Single frontal radiograph of the chest was obtained. Comparison: Comparison is made to chest and abdomen radiographs 02/24/2020 FINDINGS: No lines and tubes are seen. The cardiomediastinal silhouette is normal. The lungs are clear. No evid ence of pleural effusion or pneumothorax. IMPRESSION: No acute chest disease. ACT 112: Negative or not required by law. Electronically signed by: Vinh Alcala M.D. 12/21/2021 5:07 PM
[2021-12-21] MEDS ORDERED: hydrALAZINE HCL 20 MG/ML VIAL IV STA (17:13)
[2021-12-21 17:19] LABS: Basophils # (auto) 0.02 K/uL (0-0.2); Basophils % (auto) 0.3 %; Eosinophils # (auto) 0.12 K/uL (0-0.5); Eosinophils % (auto) 1.8 %; Hematocrit (blood only) 44.5 % (37-47); Hemoglobin 14.1 g/dL (12.0-16.0); Immature Granulocytes # (auto) 0.01 K/uL (0.00-0.02); Immature Granulocytes % (auto) 0.1 %; Lymphocytes # (auto) 2.75 K/uL (1.2-3.4); Lymphocytes % (auto) 40.4 %; Mean Corpuscular Hemoglobin 29.6 pg (25-34); Mean Corpuscular Hgb Conc 31.7 g/dL (32-36); Mean Corpuscular Volume 93.3 fL (80-100); Mean Platelet Volume 11.7 fL (7.4-10.4); Monocytes # (auto) 0.59 K/uL (0.11-0.59); Monocytes % (auto) 8.7 %; Neutrophils # (auto) 3.31 K/uL (1.4-6.5); Neutrophils % (auto) 48.7 %; Platelet Count 199 K/uL (130-400); RDW Coefficient of Variation 15.1 % (11.5-14.5); RDW Standard Deviation 51.8 fL (36.4-46.3); Red Blood Count 4.77 M/uL (4.2-5.4)
[2021-12-21 17:37] LABS: Albumin Globulin Ratio 1.4 (0.9-2); Albumin Level 4.3 gm/dl (3.4-5.0); BUN Creatinine Ratio 22.1 (10-20); Bilirubin,Total 0.7 mg/dl (0.2-1.0); Calcium 9.5 mg/dl (8.5-10.1); Creatinine Clr Calc Pharmacy 47.6 ml/min; Est GFR (African American) 55.8 ml/min; Est GFR (Non-African American) 48.2 ml/min; Potassium 4.1 mmol/L (3.5-5.1); Total Protein 7.3 gm/dl (6.0-8.3)
[2021-12-21] MEDS ORDERED: OPTIRAY 320 125ml IV ONE (17:55)
--- NOTE | 2021-12-21 18:04 | CT Scan Report ---
CT angio chest dissec wo/w con CLINICAL HISTORY: mid sternal chest pain and arm pain htn sbp 230s TECHNIQUE: Multidetector row helical CT of the chest was performed before and after injection of IV c ontrast. Coronal and sagittal reformations were obtained. Automated dose lowering techniques and/or a djustment according to patient size were utilized for this exam. CT DOSE: 1383.16 mGy.cm Comparison: None available at the time of this dictation. FINDINGS: Lungs and pleura: Atelectasis is seen in the left lung base. Heart and pericardium: Heart size is normal. No pericardial effusion. Vessels: Moderate atherosclerotic changes in the aorta and coronary arteries. No evidence of pulmonar y embolus or aortic dissection. Mediastinum and jax: Unremarkable. Chest wall and lower neck: Unremarkable. Abdomen: Unremarkable. Bones: Degenerative changes in the thoracic spine. IMPRESSION: No evidence of aortic dissection. No pulmonary embolus is seen. ACT 112: Negative or not required by law. Electronically signed by: Vinh Alcala M.D. 12/21/2021 6:02 PM
[2021-12-21] MEDS ORDERED: LOSARTAN POTASSIUM 25 MG TAB PO ONE (20:00)
[2021-12-21] MEDS ORDERED: amLODIPine BESYLATE 5 MG TAB PO ONE (20:06)
[2021-12-21] MEDS ORDERED: GI COCKTAIL ED USE PO ONE (20:16)
--- NOTE | 2021-12-21 20:25 | History & Physical Report ---
Date of Service December 21, 2021 Assessment & Plan (1) Hypertension: Plan: HTN without evidence of organ dysfunction- - CTA chest negative for dissection, no dyspnea, no headache or neurological dysfunction, reproducible chest pain and negative HScTNI x2. - This is likely related to her steroid administration - - Patient was also previously on - Losartan, HCTZ and Metoprolol - she endorses that this was stopped at one time at another hospital admission and was never restarted - Will restart her Losartan 25mg PO qd of note she was on 100mg PO daily in 2019 - this will likely take some time to have effect - Will give 5mg Norvasc PO now and follow her hemodynamics through the PM - Hydralazine PRN if > 195 and/or DBP > 95 - Would avoid any rapid correction or further initiation on my evaluation without stimulation the blood pressure was 175/82, on Staff e valuation without stimulation the blood pressure was 168/103 (2) Musculoskeletal chest pain: Plan: Patient with history of fibromyalgia- she is tender 2-4 intercostals - she denies any lifting, moving things, cleaning, coughing, or other activity - she is on meloxicam and lyrica for her fibromyalgia- will add Tylenol - GI cocktail x1 now as the discomfort in her throat is consistent with her GERD sensation - She is to have a nuclear stress test ordered by her PCP on Sunday. (3) Hyperlipidemia: Plan: Continue Atorvastatin 20mg daily (4) GERD (gastroesophageal reflux disease): Plan: She is on omeprazole 40mg PO daily - with her taking her Meloxicam and ASA and if symptoms not controlled could increase to 40mg PO BID - GI cocktail x1 (5) CKD (chronic kidney disease) stage 3, GFR 30-59 ml/min: Plan: stable (6) Diabetes mellitus, type 2: Plan: AC/HS blood sugar checks- will add coverage if > 180 (7) Anxiety: Plan: Continue with her Lorazepam 0.5mg PO daily - she denies any dx of white coat syndrome (8) Lumbar radicular pain: Plan: Chronic as above History of Present Illness Primary Care Provider: Justino Tovar, DO 71 YOF with medical history of: Fibromyalgia, DMII(not on medication), HLD, Arthitis, back pain, HTN, GERD. Patient comes to the emergency room today for complaints of chest pain and elevated blood pressure. This has been ongoing for the patient for the past 8 days. The pain is in across her chest and into her throat and is burning but also just "hurts". This does not change with activity or with exertion. She also has noticed increase in fatigue and feeling worn out as well as she started checking her blood pressure at home and noting that if fluctuates markedly through the day. She has noticed number 210/110 and 150s/60s, but she can tell when her BP comes down as this is when she feels the fatigued and "off" feeling. The patient states that this started ~ 8 days ago and correlates this to when she was started on Prednisone for hand pain where she is being evaluated for carpal tunnel syndrome. She was to take 40mg for a day then 30mg for 3 days and continue on her taper- she stopped this 1 day ago after telling her symptoms to her hand doctor. In the EMD the patient had an ECG performed, HScTNI x2 drawn, CTA of the chest. She was noted to have BP of the 230/110 range with HR in the 50s. Her HScTNI was 3.9 and 2.7 on 2 hour reflex testing. ECG is without changes and her CTA of the chest for dissection was negative. She was given 1 dose of Hydralazine in the EMD with minimal response. Hospitalist service was consulted for admission. Her chest pain is reproducible bilateral along chest wall 2-4 intercostals. She has no other evidence of organ dysfunction. Patient will be observed overnight to trend her BP. There was some mention through her ER course of ultrasound of her gall-bladder- her lipase is 85- she is without epigastric pain and negative leon's sign. The rest of her biliary labs are normal. She had CTA of the chest that did capture the upper part of her abdomen and no radiological evidence to further investigate at this time. COVID test on admission is: NEGATIVE Allergies Allergy/AdvReac Type Severity Reaction Status Date / Time No Known Allergies Allergy Verified 12/21/21 18:30 Home Medications Medication Instructions Recorded Confirmed Type aspirin 81 mg tablet,delayed 81 mg PO HS 10/27/19 12/21/21 History release atorvastatin 20 mg tablet 20 mg PO DAILY 10/27/19 12/21/21 History metoprolol succinate 50 mg capsule 50 mg PO DAILY 10/27/19 12/21/21 History sprinkle, ext. release 24 hr omeprazole 40 mg capsule,delayed 40 mg PO DAILY 10/27/19 12/21/21 History release lorazepam 0.5 mg tablet 0.5 mg PO DAILY PRN 04/05/20 12/21/21 History allopurinol 100 mg tablet 100 mg PO DAILY 12/21/21 12/21/21 History ascorbic acid (vitamin C) 500 mg 500 mg PO DAILY 12/21/21 12/21/21 History chewable tablet (Vitamin C) baclofen 10 mg tablet 10 mg PO Q8H PRN 12/21/21 12/21/21 History xlsadfn-itqdschnd-jaav tablet 1 tab PO BID 12/21/21 12/21/21 History donepezil 5 mg tablet 5 mg PO HS 12/21/21 12/21/21 History meloxicam 15 mg tablet 15 mg PO DAILY 12/21/21 12/21/21 History polyethylene glycol 3350 17 gram 17 g PO DAILY 12/21/21 12/21/21 History oral powder packet (Miralax) pregabalin 150 mg capsule 150 mg PO BID 12/21/21 12/21/21 History psyllium husk 3.4 gram/5.4 gram 2 tsp PO DAILY 12/21/21 12/21/21 History oral powder (Metamucil) zolpidem 10 mg tablet 10 mg PO HS 12/21/21 12/21/21 History Past Med/Surg History Medical History (Updated 12/21/21 @ 22:17 by Sathya Gomez DO) Anxiety Chronic low back pain Diabetes mellitus, type 2 GERD (gastroesophageal reflux disease) Lumbar radicular pain Postlaminectomy syndrome of lumbosacral region L2-S1 posterior fusion 03/2016 Surgical History H/O cardiac radiofrequency ablation H/O rotator cuff surgery right H/O: hysterectomy Previous back surgery L2-S1 posterior fusion (03/2016) Family History Other No pertinent family history Social History Smoking Status: Never smoker Second Hand Exposure: No; Do You Dip or Chew Tobacco: No; Tobacco Cessation Education Requested by Patient: No Hx Alcohol Use: No Hx Substance Use: No Preferred Language: Sami Communication Ability: Effective Visual Impairment: Limited Hearing Ability: Normal Capacity Planning Manager Required: No Beliefs That Will Affect Care: None marital status: Current Living Situation: Spouse current occupational status: retired Other Information That Helps Us Care for You: No Feels Safe at Home: Yes Safety Concerns: Feels Safe At This Time Assistive Devices: Glasses Review of Systems Review of Systems: REVIEW OF SYSTEMS: Constitutional: No fever, sweats or chills Eyes: No diplopia, no worsening or blurred vision ENT: normal hearing, no trouble swallowing Respiratory: No cough, sputum, dyspnea at rest or on exertion Cardiovascular: (+) chest pain, NO tightness or palpitations Abdomen: (+) constipation, heart burn, No pain, nausea, vomiting, diarrhea Musculoskeletal: (+) knee, lower back, hand, joint pain Neurologic: No weakness, numbness/tingling, or balance problems Psychiatric: (+) anxiety Skin: No rash or itch Physical Exam Physical Exam: PHYSICAL EXAM: General: awake, alert, no apparent distress Head: Normocephalic, atraumatic ENT: PERRLA, EOMI, no pharyngeal exudate, mucous membranes moist Neuro: AAO x 3, speech clear and appropriate, strength intact bilaterally 5/5, sensation intact and equal all extremities and dermatomes, no pronator drift Chest: equal rise and fall of the chest, no accessory muscle use, no heaves or thrills, clear to auscultation, on room air, Cardiac: Regular rate and rhythm, telemetry reviewed-NSR, skin warm dry, cap refill <3 seconds, peripheral pulses +2 no JVD, no murmur, no JVD, no edema GI: NABS x 4 quadrants, soft, nontender to palpation, no rebound, guarding or tenderness : Spontaneously voiding, no pain, no CVA tenderness, Extremities: Normal inspection, no peripheral edema or erythema, calfs nontender to palpation Psych: Normal mood and affect Skin: no rash or erythema Results & Data Results & Data ([facility]) Vital Signs (Past 12 Hours) Vital Signs Temp Pulse Pulse Resp BP BP Pulse Ox 12/21/21 19:31 16 235/115 H 96 12/21/21 19:30 59 L 16 99 12/21/21 19:00 58 L 13 179/82 H 98 12/21/21 18:58 57 L 13 202/83 H 98 12/21/21 18:30 60 14 188/80 H 97 12/21/21 18:10 66 12 219/95 H 99 12/21/21 18:04 74 13 100 12/21/21 18:00 61 18 219/95 H 99 12/21/21 17:41 53 L 13 210/101 H 99 12/21/21 17:31 51 L 13 220/110 H 97 12/21/21 17:01 54 L 14 218/89 H 98 12/21/21 16:10 36.4 C L 61 20 177/121 H 96 Laboratory Results Abnormal lab results 12/21/21 12/21/21 Range/Units 16:57 16:57 MCHC 31.7 L (32-36) g/dL RDW Std Deviation 51.8 H (36.4-46.3) fL RDW Coeff of Sari 15.1 H (11.5-14.5) % MPV 11.7 H (7.4-10.4) fL BUN 25 H (6-23) mg/dl BUN/Creatinine Ratio 22.1 H (10-20) Glucose 103 H (70-99(Fasting)) mg/dl Lipase 85 H (11-82) U/L Diagnostic Findings Chest X-Ray 12/21/21 16:36 XR chest 1V portable CLINICAL HISTORY: Atypical chest pain TECHNIQUE: Single frontal radiograph of the chest was obtained. Comparison: Comparison is made to chest and abdomen radiographs 02/24/2020 FINDINGS: No lines and tubes are seen. The cardiomediastinal silhouette is normal. The lungs are clear. No evidence of pleural effusion or pneumothorax. IMPRESSION: No acute chest disease. ACT 112: Negative or not required by law. Electronically signed by: Vinh Alcala M.D. 12/21/2021 5:07 PM Chest CTA 12/21/21 16:52 CT angio chest dissec wo/w con CLINICAL HISTORY: mid sternal chest pain and arm pain htn sbp 230s TECHNIQUE: Multidetector row helical CT of the chest was performed before and after injection of IV contrast. Coronal and sagittal reformations were obtained. Automated dose lowering techniques and/or adjustment according to patient size were utilized for this exam. CT DOSE: 1383.16 mGy.cm Comparison: None available at the time of this dictation. FINDINGS: Lungs and pleura: Atelectasis is seen in the left lung base. Heart and pericardium: Heart size is normal. No pericardial effusion. Vessels: Moderate atherosclerotic changes in the aorta and coronary arteries. No evidence of pulmonary embolus or aortic dissection. Mediastinum and jax: Unremarkable. Chest wall and lower neck: Unremarkable. Abdomen: Unremarkable. Bones: Degenerative changes in the thoracic spine. IMPRESSION: No evidence of aortic dissection. No pulmonary embolus is seen. ACT 112: Negative or not required by law. Electronically signed by: Vinh Alcala M.D. 12/21/2021 6:02 PM Medications Administered Home Medications aspirin 81 mg tablet,delayed release 81 mg PO HS 10/27/19 [History Confirmed 12/21/21] atorvastatin 20 mg tablet 20 mg PO DAILY 10/27/19 [History Confirmed 12/21/21] metoprolol succinate 50 mg capsule sprinkle, ext. release 24 hr 50 mg PO DAILY 10/27/19 [History Confirmed 12/21/21] omeprazole 40 mg capsule,delayed release 40 mg PO DAILY 10/27/19 [History Confirmed 12/21/21] lorazepam 0.5 mg tablet 0.5 mg PO DAILY PRN 04/05/20 [History Confirmed 12/21/21] allopurinol 100 mg tablet 100 mg PO DAILY 12/21/21 [History Confirmed 12/21/21] ascorbic acid (vitamin C) 500 mg chewable tablet (Vitamin C) 500 mg PO DAILY 12/21/21 [History Confirmed 12/21/21] baclofen 10 mg tablet 10 mg PO Q8H PRN 12/21/21 [History Confirmed 12/21/21] ghcqdav-frzzpsmrz-iaun tablet 1 tab PO BID 12/21/21 [History Confirmed 12/21/21] donepezil 5 mg tablet 5 mg PO HS 12/21/21 [History Confirmed 12/21/21] meloxicam 15 mg tablet 15 mg PO DAILY 12/21/21 [History Confirmed 12/21/21] polyethylene glycol 3350 17 gram oral powder packet (Miralax) 17 g PO DAILY 12/21/21 [History Confirmed 12/21/21] pregabalin 150 mg capsule 150 mg PO BID 12/21/21 [History Confirmed 12/21/21] psyllium husk 3.4 gram/5.4 gram oral powder (Metamucil) 2 tsp PO DAILY 12/21/21 [History Confirmed 12/21/21] zolpidem 10 mg tablet 10 mg PO HS 12/21/21 [History Confirmed 12/21/21] Discontinued Medications Al Hydrox/Mg Hydrox/Simethicone (Gi Cocktail Ed Use) 1 dose PO NOW ONE Stop: 12/21/21 20:17 Last Admin: 12/21/21 20:21 Dose: 1 dose Documented by: [id number] Amlodipine Besylate (Amlodipine Besylate 5 Mg Tab) 5 mg PO NOW ONE Stop: 12/21/21 20:07 Last Admin: 12/21/21 20:21 Dose: 5 mg Documented by: [id number] Aspirin (Aspirin Chew 324 Mg) 324 mg PO NOW STA Stop: 12/21/21 16:54 Last Admin: 12/21/21 17:11 Dose: 324 mg Documented by: [id number] Hydralazine HCl (Hydralazine Hcl 20 Mg/Ml Vial) 10 mg IV NOW STA Stop: 12/21/21 17:14 Last Admin: 12/21/21 17:37 Dose: 10 mg Documented by: [id number] Sodium Chloride (Nss 1000ml) 1,000 mls @ 999 mls/hr IV .Q1H1M ONE Stop: 12/21/21 17:53 Last Infusion: 12/21/21 18:17 Dose: 0 mls/hr Documented by: [id number] Admin: 12/21/21 17:11 Dose: 999 mls/hr Documented by: [id number] Ioversol (Optiray 320 125ml) 120 ml IV ONCE ONE Stop: 12/21/21 17:56 Last Admin: 12/21/21 17:56 Dose: 120 ml Documented by: [id number] Losartan Potassium (Losartan Potassium 25 Mg Tab) 25 mg PO NOW ONE Stop: 12/21/21 20:01 Last Admin: 12/21/21 20:18 Dose: Not Given Documented by: [id number] ECG Additional Comments: Minimal voltage criteria for LVH, may be normal variant Borderline ECG When compared with ECG of 22-FEB-2020 18:16, Minimal criteria for Anterior infarct are no longer Present Code Status & VTE Plan Code Status CODE: FULL VTE: SCDs, ambulation VTE Prophylaxis Plan VTE Prophylaxis will be ordered: Yes Supervising Physician Co-Signing Physician Notes Patient seen and examined, chart reviewed, case discussed with TEMI Conner and I agree with the assessment and plan as above. In brief, patient is a 71yo female with history of Fibromyalgia, diet-controlled DM, HLP, HTN presenting with 8 days of chest discomfort and elevated blood pressure. Patient recenlty started on Prednisone for bilateral wrist pain/carpal tunnel. Blood pressure elevated at home ranging 220/110 - 150/60. Elevated blood pressure in the ER. Workup including EKG, HS-troponin x 2, CTA unremarkable. Administered 10mg Hydralazine IV with improvement. On exam she is hypertensive otherwise HD stable. NAD. Resting comfortably in bed NC/AT, PERRL, no papilledema on limited bedside fundoscopic exam, neck supple +S1/S2, regular, no m/r/g, reproducible chest pain Lungs CTA Abd soft, NT/ND, no epigastric pain or RUQ pain Ext warm, well perfused without edema Labs and images reviewed Assessment/Plan: Hypertension most likely secondary to recent steroid use. Also patient was previously on Losartan, HCTZ and Metoprolol which was stopped during a previous hospitalization she thinks secondary to compromised renal function but is uncertain. Steroids have been discontinued Will resume Losartan Norvasc 5mg given in ER Blood pressure presently 147/86 Reproducible chest pain, unchanged HS-trop x 2 and unremarkable EKG. Patient has been scheduled by her PCP for a Nuclear Stress test this Sunday Throat discomfort possibly GERD, possibly worsened by recent steroid use. Omeprazole, GI cocktail Remainder of plan as above PG Care Time/CCT Total # of Minutes Spent Total Time Spent with Patient: Total time spent is greater than 50% in coordination of care (as documented) at patient's floor/unit and/or counseling patient: Coding Level of Care Code INT OBSERVATION CARE 70M LVL 3 Diagnoses Hypertension I10 Hypertension type: essential hypertension Hyperlipidemia E78.2 Hyperlipidemia type: mixed hyperlipidemia CKD (chronic kidney disease) stage 3, GFR 30-59 ml/min N18.3 GERD (gastroesophageal reflux disease) K21.9 Esophagitis presence: esophagitis presence not specified Diabetes mellitus, type 2 E11.9 Anxiety F41.9 Lumbar radicular pain M54.16 Musculoskeletal chest pain R07.89 (1) Hyperlipidemia Hyperlipidemia type: mixed hyperlipidemia Qualified Code(s): E78.2 - Mixed hyperlipidemia (2) GERD (gastroesophageal reflux disease) Esophagitis presence: esophagitis presence not specified Qualified Code(s): K21.9 - Gastro-esophageal reflux disease without esophagitis (3) Hypertension Hypertension type: essential hypertension Qualified Code(s): I10 - Essential (primary) hypertension
[2021-12-21] MEDS ORDERED: DONEPEZIL HCL 5 MG TAB PO SCH (21:48)
[2021-12-21] MEDS ORDERED: ASPIRIN 81 MG ECTAB PO SCH (21:48)
[2021-12-21] MEDS ORDERED: hydrALAZINE HCL 20 MG/ML VIAL IV PRN (21:48)
[2021-12-21] MEDS ORDERED: LORazepam 0.5 MG TAB PO PRN (21:48)
[2021-12-21] MEDS: PREGABALIN 150 MG CAP PO SCH (23:00)
[2021-12-22 04:53] LABS: Appearance Urine Clear (Clear); Bacteria Urine Automated Negative (Negative); Bilirubin Urine Negative (Negative); Blood Urine Negative (Negative); Color Urine Yellow; Epithelial Cell Urine Auto 20-30 /lpf (0-5); Glucose Urine UA Negative (Negative); Ketones Urine Negative (Negative); Leukocyte Esterase Urine 1+ (Negative); Nitrite Urine Negative (Negative); Protein Urine Negative (Negative); RBC Urine Automated 0-4 /hpf (0-4); Specific Gravity Urine 1.041 (1.000-1.030); Urobilinogen Urine Negative (Negative)
[2021-12-22] MEDS: ACETAMINOPHEN 325 MG TAB PO PRN ×2 (05:29→10:45)
[2021-12-22 07:48] LABS: Basophils # (auto) 0.02 K/uL (0-0.2); Basophils % (auto) 0.3 %; Eosinophils # (auto) 0.14 K/uL (0-0.5); Eosinophils % (auto) 2.2 %; Hematocrit (blood only) 41.9 % (37-47); Hemoglobin 13.2 g/dL (12.0-16.0); Immature Granulocytes # (auto) 0.02 K/uL (0.00-0.02); Immature Granulocytes % (auto) 0.3 %; Lymphocytes # (auto) 2.58 K/uL (1.2-3.4); Lymphocytes % (auto) 41.4 %; Mean Corpuscular Hemoglobin 28.9 pg (25-34); Mean Corpuscular Hgb Conc 31.5 g/dL (32-36); Mean Corpuscular Volume 91.9 fL (80-100); Mean Platelet Volume 11.9 fL (7.4-10.4); Monocytes # (auto) 0.57 K/uL (0.11-0.59); Monocytes % (auto) 9.1 %; Neutrophils % (auto) 46.7 %; Platelet Count 180 K/uL (130-400); RDW Coefficient of Variation 15.3 % (11.5-14.5); Red Blood Count 4.56 M/uL (4.2-5.4); White Blood Count 6.23 K/uL (4.8-10.8)
[2021-12-22 08:39] LABS: BUN Creatinine Ratio 21.6 (10-20); Calcium 8.9 mg/dl (8.5-10.1); Creatinine Clr Calc Pharmacy 55.5 ml/min; Est GFR (African American) 67.2 ml/min; Est GFR (Non-African American) 57.9 ml/min; Magnesium 2.1 mg/dl (1.7-2.4)
[2021-12-22] MEDS: PREGABALIN 150 MG CAP PO SCH (08:56)
[2021-12-22] MEDS ORDERED: POLYETHYLENE (MIRALAX) 17 GM PACK PO SCH (09:00)
[2021-12-22] MEDS ORDERED: ATORVASTATIN 20 MG TAB PO SCH (09:00)
[2021-12-22] MEDS ORDERED: LOSARTAN POTASSIUM 25 MG TAB PO SCH (09:00)
[2021-12-22] MEDS ORDERED: allopurinoL 100 MG TAB PO SCH (09:00)
[2021-12-22] MEDS ORDERED: PANTOprazole 40 MG TAB PO SCH (09:00)
[2021-12-22] MEDS ORDERED: MELOXICAM 7.5 MG TAB PO SCH (09:00)
[2021-12-22] MEDS ORDERED: METOPROLOL SUCC 50MG EXT REL TAB PO SCH (09:00)
--- NOTE | 2021-12-22 11:01 | Discharge Summary ---
Date of Service December 22, 2021 Admission HPI Per Admitting Provider 71 YOF with medical history of: Fibromyalgia, DMII(not on medication), HLD, Arthitis, back pain, HTN, GERD. Patient comes to the emergency room today for complaints of chest pain and elevated blood pressure. This has been ongoing for the patient for the past 8 days. The pain is in across her chest and into her throat and is burning but also just "hurts". This does not change with activity or with exertion. She also has noticed increase in fatigue and feeling worn out as well as she started checking her blood pressure at home and noting that if fluctuates markedly through the day. She has noticed number 210/110 and 150s/60s, but she can tell when her BP comes down as this is when she feels the fatigued and "off" feeling. The patient states that this started ~ 8 days ago and correlates this to when she was started on Prednisone for hand pain where she is being evaluated for carpal tunnel syndrome. She was to take 40mg for a day then 30mg for 3 days and continue on her taper- she stopped this 1 day ago after telling her symptoms to her hand doctor. In the EMD the patient had an ECG performed, HScTNI x2 drawn, CTA of the chest. She was noted to have BP of the 230/110 range with HR in the 50s. Her HScTNI was 3.9 and 2.7 on 2 hour reflex testing. ECG is without changes and her CTA of the chest for dissection was negative. She was given 1 dose of Hydralazine in the EMD with minimal response. Hospitalist service was consulted for admission. Her chest pain is reproducible bilateral along chest wall 2-4 intercostals. She has no other evidence of organ dysfunction. Patient will be observed overnight to trend her BP. There was some mention through her ER course of ultrasound of her gall-bladder- her lipase is 85- she is without epigastric pain and negative leon's sign. The rest of her biliary labs are normal. She had CTA of the chest that did capture the upper part of her abdomen and no radiological evidence to further investigate at this time. COVID test on admission is: NEGATIVE Principal Diagnosis Uncontrolled hypertension Reproducible chest pain-acs ruled out Discharge Exam GENERAL: 71 yo obese WF. NAD. LUNGS: Clear to auscultation bilaterally. No accessory muscle use. No W/R/R. CARDIOVASCULAR: Regular rate and rhythm. No M/G/R. No JVD. ABDOMEN: Soft, non-tender and non-distended. BS normal x 4 quad. EXTREMITIES: No edema. Non-tender. Peripheral pulses +2/4. NEUROLOGIC: A&O x3. PSYCHIATRIC: Cooperative. Appropriate mood and affect. SKIN: Warm, dry, intact. No rashes or lesions. Discharge Data Allergies Allergy/AdvReac Type Severity Reaction Status Date / Time No Known Allergies Allergy Verified 12/21/21 18:30 Consultations 12/21/21 19:19 ED Decision to Admit Stat Ordered Studies Chest X-Ray 12/21/21 16:36 XR chest 1V portable CLINICAL HISTORY: Atypical chest pain TECHNIQUE: Single frontal radiograph of the chest was obtained. Comparison: Comparison is made to chest and abdomen radiographs 02/24/2020 FINDINGS: No lines and tubes are seen. The cardiomediastinal silhouette is normal. The lungs are clear. No evidence of pleural effusion or pneumothorax. IMPRESSION: No acute chest disease. ACT 112: Negative or not required by law. Electronically signed by: Vinh Alcala M.D. 12/21/2021 5:07 PM Chest CTA 12/21/21 16:52 CT angio chest dissec wo/w con CLINICAL HISTORY: mid sternal chest pain and arm pain htn sbp 230s TECHNIQUE: Multidetector row helical CT of the chest was performed before and after injection of IV contrast. Coronal and sagittal reformations were obtained. Automated dose lowering techniques and/or adjustment according to patient size were utilized for this exam. CT DOSE: 1383.16 mGy.cm Comparison: None available at the time of this dictation. FINDINGS: Lungs and pleura: Atelectasis is seen in the left lung base. Heart and pericardium: Heart size is normal. No pericardial effusion. Vessels: Moderate atherosclerotic changes in the aorta and coronary arteries. No evidence of pulmonary embolus or aortic dissection. Mediastinum and jax: Unremarkable. Chest wall and lower neck: Unremarkable. Abdomen: Unremarkable. Bones: Degenerative changes in the thoracic spine. IMPRESSION: No evidence of aortic dissection. No pulmonary embolus is seen. ACT 112: Negative or not required by law. Electronically signed by: Vinh Alcala M.D. 12/21/2021 6:02 PM Hospital Course (1) Hypertension: HTN without evidence of organ dysfunction- -CTA chest negative for dissection, no dyspnea, no headache or neurological dysfunction, reproducible chest pain and negative HScTNI x2. - This is likely related to her steroid administration & dietary indiscretion from increased salt intake over - Patient was also previously on - Losartan, HCTZ and Metoprolol - she endorses that this was stopped at one time at another hospital admission and was never restarted - Restarted her Losartan 25mg daily - Given 5mg Norvasc PO x1 in ED - Hydralazine PRN ordered but not needed - BP this AM prior to medical claims representative was 149/84 (2) Musculoskeletal chest pain: Patient with history of fibromyalgia- she is tender 2-4 intercostals - she denies any lifting, moving things, cleaning, coughing, or other activity - she is on meloxicam and lyrica for her fibromyalgia- added Tylenol - GI cocktail x1 now as the discomfort in her throat is consistent with her GERD sensation - She has nuclear stress test scheduled tomorro 12/23 (3) Hyperlipidemia: - Continued Atorvastatin 20mg daily (4) GERD (gastroesophageal reflux disease): She is on omeprazole 40mg PO daily - with her taking her Meloxicam and ASA and if symptoms not controlled could increase to 40mg PO BID, will defer to PCP - GI cocktail x1 (5) CKD (chronic kidney disease) stage 3, GFR 30-59 ml/min: - stable (6) Diabetes mellitus, type 2: - AC/HS blood sugar checked, no coverage needed - Diabetic diet ordered (7) Anxiety: Continue with her Lorazepam 0.5mg PO daily - she denies any dx of white coat syndrome (8) Lumbar radicular pain: Chronic as above At this time, pt is medically and hemodynamically stable for discharge home. BP has improved. Will send new rx for Losartan 25mg daily to her pharmacy. Recommend obtaining a home BP cuff if she does not already have one to monitor BP at home. Can keep a log and take with her to her PCP follow up and further adjustments in her med regimen can be made accordingly. Told to keep appointment for her stress test tomorrow as scheduled. Advise pcp f/u within 1 week of discharge. Watch/limit salt. Steroids discontinued. Plan d/w Dr. Stanley. Total Time Total Time Spent Total Time Spent (In Minutes): <30 minutes Discharge Plan Discharge Items Patient Disposition: Home - Self-Care Reason For Visit: HTN Discharge Diagnosis: Hypertension, uncontrolled Activity: Resume your previous activity Non-emergency contact: Primary Care Provider Call non-emergency contact if: you have any medication questions Follow-up/Referrals: Justino Tovar, [Primary Care Provider] - Diet: Carb Consistent or DM2 and Low Sodium (2gm) Addtl Attending Provider Instructions: You were hospitalized due to uncontrolled blood pressure. It is suspected that this was an accumulative affect of recent steroid use causing fluid retention as well as dietary indiscretion (increased salt intake) from the recent . At any rate, you have been put back on your Metoprolol Succinate that you take at home as well as restarted on Losartan 25mg once a day. Your blood pressure has responded well to these medications. A new prescription will be sent to your pharmacy on file for the Losartan, please take as directed. You need to limit your salt intake. This not only means added salt seasoning but to also watch any cured meats and boxed/canned foods. Always read the label to determine salt content prior to purchase/consumption. Your goal is to keep salt intake <2g per day. We would recommend that if you do not have one, to purchase an over the counter electronic blood pressure cuff that you can monitor your blood pressure at home. Keep a log and take with you to your next primary care provider follow up. Keep your stress test procedure tomorrow as scheduled. Follow up with your family healthcare provider within 1 week of discharge. Please contact the [employer] number in the event of any questions/concerns. In the event of a medical emergency, call 911. Pending Studies at Discharge: No Stand-Alone Forms: My [employer], Smoking Cessation Medications and DC Order Prescriptions: New losartan 25 mg Tablet 25 mg PO QAM Qty: 30 RF: 0 Continued metoprolol succinate 50 mg capsule,sprinkle,ER 24hr 50 mg PO DAILY RF: 0 omeprazole 40 mg capsule,delayed release(DR/EC) 40 mg PO DAILY RF: 0 atorvastatin 20 mg tablet 20 mg PO DAILY RF: 0 aspirin 81 mg tablet,delayed release (DR/EC) 81 mg PO HS RF: 0 lorazepam 0.5 mg tablet 0.5 mg PO DAILY PRN (Reason: Anxiety) RF: 0 donepezil 5 mg tablet 5 mg PO HS RF: 0 polyethylene glycol 3350 [Miralax] 17 gram Powder In Packet 17 g PO DAILY RF: 0 meloxicam 15 mg tablet 15 mg PO DAILY RF: 0 allopurinol 100 mg tablet 100 mg PO DAILY RF: 0 [id number]-kphcigxnj-wvow Tablet 1 tab PO BID RF: 0 baclofen 10 mg tablet 10 mg PO Q8H PRN (Reason: MUSCLE SPASMS) RF: 0 ascorbic acid (vitamin C) [Vitamin C] 500 mg Tablet,Chewable 500 mg PO DAILY RF: 0 zolpidem 10 mg tablet 10 mg PO HS RF: 0 pregabalin 150 mg capsule 150 mg PO BID RF: 0 Metamucil 3.4 gram/5.4 gram Powder 2 tsp PO DAILY RF: 0 Discharge Orders: Discharge Order (Routine); Ordered 12/22/21 Ordered By: Jael Franks Admission Data Admit Date/Time: 12/21/21 20:05 Attending Provider: Bertin Stanley Admit Provider: Lindsey Guido Primary Care Provider: Justino Tovar Other Providers: Lindsey Guido Coding Level of Care Code 68095 OBS Care - Discharge Diagnoses Hypertension I10 Hypertension type: unspecified Musculoskeletal chest pain R07.89 Hyperlipidemia E78.2 Hyperlipidemia type: mixed hyperlipidemia GERD (gastroesophageal reflux disease) K21.9 Esophagitis presence: esophagitis presence not specified CKD (chronic kidney disease) stage 3, GFR 30-59 ml/min N18.3 Diabetes mellitus, type 2 E11.9 Anxiety F41.9 Lumbar radicular pain M54.16
--- NOTE | 2021-12-22 17:56 | Electrocardiogram Report ---
Test Reason : Blood Pressure : / mmHG Vent. Rate : 058 BPM Atrial Rate : 058 BPM P-R Int : 152 ms QRS Dur : 080 ms QT Int : 442 ms P-R-T Axes : 044 -22 036 degrees QTc Int : 433 ms Sinus bradycardia Minimal voltage criteria for LVH, may be normal variant Borderline ECG When compared with ECG of 22-FEB-2020 18:16, Minimal criteria for Anterior infarct are no longer Present Confirmed by Robin Miller ([id number]) on 12/22/2021 5:56:08 PM Referred By: REFERRED SELF Confirmed By:Fabiano Miller
== END 2021-12-22 16:12 | disposition home or self-care (01) ==
LOC: 2N 16:06 → ED 16:06 → SUATTDRO 20:05 → 2N 21:25
DX: K21.9 Gastro-esophageal reflux disease without esophagitis; F41.9 Anxiety disorder, unspecified; I12.9 Hypertensive chronic kidney disease with stage 1 through stage 4 chronic kidney disease, or unspecified chronic kidney disease; Z79.82 Long term (current) use of aspirin; Z79.899 Other long term (current) drug therapy; E11.9 Type 2 diabetes mellitus without complications; E78.5 Hyperlipidemia, unspecified; M54.16 Radiculopathy, lumbar region; N18.30 Chronic kidney disease, stage 3 unspecified; R07.2 Precordial pain

== ENCOUNTER 2022-01-29 13:27 | Inpatient (IN) ==
[2022-01-29] MEDS ORDERED: FAMOTIDINE 20MG IV PUSH 20 MG/5 ML SYR IV STA (14:24)
[2022-01-29 15:01] LABS: Basophils # (auto) 0.03 K/uL (0-0.2); Basophils % (auto) 0.6 %; Eosinophils # (auto) 0.09 K/uL (0-0.5); Eosinophils % (auto) 1.7 %; Hematocrit (blood only) 39.9 % (37-47); Hemoglobin 13.3 g/dL (12.0-16.0); Immature Granulocytes # (auto) 0.01 K/uL (0.00-0.02); Immature Granulocytes % (auto) 0.2 %; Lymphocytes # (auto) 1.74 K/uL (1.2-3.4); Lymphocytes % (auto) 33.5 %; Mean Corpuscular Hgb Conc 33.3 g/dL (32-36); Mean Corpuscular Volume 89.9 fL (80-100); Mean Platelet Volume 10.5 fL (7.4-10.4); Monocytes # (auto) 0.48 K/uL (0.11-0.59); Monocytes % (auto) 9.2 %; Neutrophils # (auto) 2.85 K/uL (1.4-6.5); Neutrophils % (auto) 54.8 %; Platelet Count 206 K/uL (130-400); RDW Coefficient of Variation 14.3 % (11.5-14.5); RDW Standard Deviation 47.3 fL (36.4-46.3); Red Blood Count 4.44 M/uL (4.2-5.4)
[2022-01-29] MEDS: SODIUM CHLORIDE 0.9% 1000ML 1,000 ML IV SCH ×2 (15:12→16:45)
[2022-01-29 15:22] LABS: Albumin Globulin Ratio 1.3 (0.9-2); Albumin Level 3.9 gm/dl (3.4-5.0); BUN Creatinine Ratio 10.9 (10-20); Bilirubin,Total 0.5 mg/dl (0.2-1.0); Calcium 9.7 mg/dl (8.5-10.1); Creatinine Clr Calc Pharmacy 50.9 ml/min; Est GFR (Non-African American) 55.2 ml/min; Magnesium 1.4 mg/dl (1.7-2.4); Potassium 3.8 mmol/L (3.5-5.1); Total Protein 6.9 gm/dl (6.0-8.3)
[2022-01-29] MEDS ORDERED: OPTIRAY 320 100ml IV ONE (15:41)
[2022-01-29] MEDS ORDERED: SODIUM CHLORIDE 0.9% 500 ML IV ONE (16:15)
--- NOTE | 2022-01-29 16:23 | CT Scan Report ---
CT SCAN OF THE ABDOMEN AND PELVIS WITH IV CONTRAST CLINICAL HISTORY: Generalized abdominal pain. Nausea. COMPARISON STUDY: Abdominal CT dated 02/21/2020. TECHNIQUE: Following the IV administration of 92 cc of Optiray 320, CT scan of the abdomen and pelvi s is performed from the lung bases to the proximal femora. Images are reviewed in the axial, sagittal , and coronal planes. IV contrast was administered without complication. A dose lowering technique wa s utilized adhering to the principles of ALARA. The Examination is degraded by streak artifact from e xtensive metallic spinal hardware. CT DOSE: 694.49 mGy.cm FINDINGS: Lung bases: The heart is normal in size and without pericardial effusion. The lung bases are clear no ting bibasilar scarring/atelectasis. Liver: The contrast-enhanced liver is normal in size, contour, and attenuation. There is no intrahepa tic biliary ductal dilatation. The hepatic veins and portal veins are patent. Gallbladder: Unremarkable. Spleen: Normal in size and attenuation. Pancreas: Unremarkable. Adrenal glands: Unremarkable. Kidneys: The contrast enhanced kidneys demonstrate mild cortical atrophy and are without hydronephros is. The kidneys enhance symmetrically. Cortical scarring is noted in the interpolar left kidney. A 1. 0 cm enhancing lesion is suggested in the upper pole of the left kidney on image #97. Abdominal vasculature: The abdominal aorta is normal in course and caliber noting moderate to advance d atherosclerotic calcification. Bowel: There is mild to moderate sigmoid diverticulosis. There is wall thickening with pericolonic in flammation involving the sigmoid seen on image #295 consistent with mild acute diverticulitis. No org anized fluid collection is seen to suggest abscess. There is no bowel obstruction. The appendix is w ell-visualized and normal. A 1.6 cm metallic foreign body versus surgical clip is noted in the cecum on image #216. Peritoneum: There is no intraperitoneal free air or abdominal ascites. There is a fat-containing umbi lical hernia. Lymphadenopathy: None. Pelvic viscera: The bladder is normal as visualized. The uterus is surgically absent. Tiny simple cys tic foci are again seen in both ovaries and measure up to 13 mm. Skeletal structures: The skeletal structures are osteopenic. There is lumbosacral spondylosis with po stoperative change from laminectomy and posterior fusion seen from L2-S1. No lytic or blastic lesions are seen. IMPRESSION: 1. Mild acute diverticulitis of the sigmoid colon. 2. No intraperitoneal free air is identified and there is no organized fluid collection to suggest ab scess. 3. There is a 1.0 cm enhancing nodule suggested in the upper pole of the left kidney. Nonemergent fol low-up with urology is recommended. 4. There is an intraluminal metallic foreign body versus surgical clip identified in the cecum. 5. Additional findings as above. ACT 112: Negative or not required by law. Electronically signed by: Rolando Griggs M.D. 01/29/2022 4:21 PM
--- NOTE | 2022-01-29 16:40 | Emergency Department Note ---
History of Present Illness General Chief complaint: Illness Stated complaint: NAUSEOUS, VOMITTING, LIGHTHEADED Time Seen by Provider: 01/29/22 13:57 Source: patient Mode of arrival: ambulatory Limitations: no limitations History of Present Illness Provider complaint: Nausea, weakness, abdominal pain Onset (ago): day(s) 6 Location: abdomen Radiation: non-radiation Maximum Pain Intensity: 7 Associated symptoms: + loss of appetite, + malaise, + nausea/vomiting and + weakness; no chest pain, no fever/chills or no shortness of breath Treatments prior to arrival: other This is a 71-year-old female presents emergency department complaining of nausea, vomiting, abdominal pain, and weakness. Patient states symptoms began last week when she was started on a new medication for depression. She states after several days she is assumed this to be a side effect of the depression medication and so she stopped taking it. She states her symptoms persisted so she contacted her family doctor. She was told at that time she had a "stomach flu" and was given nausea medication. She denies any recent travel, sick contacts, or dietary changes. Denies any history of IBS or IBD. Patient states the pain is higher in the abdomen and otherwise nonradiating. She states she does feel very distended. She states she did not have a bowel movement for several days which she presumed was from decreased oral intake, however has had stools last several days. She denies any black or bloody stools. She denies overt fevers or chills. Denies chest pain, shortness of breath, or dizziness. Pt seen during a time of high acuity and national emergency pandemic while wearing PPE. Home Medications Medication Instructions Recorded Confirmed Type aspirin 81 mg tablet,delayed 81 mg PO HS 10/27/19 01/29/22 History release atorvastatin 20 mg tablet 20 mg PO DAILY 10/27/19 01/29/22 History metoprolol succinate 50 mg capsule 50 mg PO DAILY 10/27/19 01/29/22 History sprinkle, ext. release 24 hr omeprazole 40 mg capsule,delayed 40 mg PO DAILY 10/27/19 01/29/22 History release lorazepam 0.5 mg tablet 0.5 mg PO DAILY PRN 04/05/20 01/29/22 History allopurinol 100 mg tablet 100 mg PO DAILY 12/21/21 01/29/22 History donepezil 5 mg tablet 5 mg PO HS 12/21/21 01/29/22 History zolpidem 10 mg tablet 10 mg PO HS 12/21/21 01/29/22 History losartan 25 mg tablet 25 mg PO QAM #30 tab 12/22/21 01/29/22 Rx lactulose 10 gram/15 mL oral 15 ml PO BID 01/29/22 01/29/22 History solution metronidazole 500 mg tablet 500 mg PO TID 01/29/22 01/29/22 History ondansetron HCl 8 mg tablet 8 mg PO BID 01/29/22 01/29/22 History Allergies Allergy/AdvReac Type Severity Reaction Status Date / Time No Known Allergies Allergy Verified 01/29/22 15:19 Past Med/Surg History Medical History (Updated 01/29/22 @ 20:20 by Krzysztof Reynaga MD) Anxiety Chronic low back pain Diabetes mellitus, type 2 GERD (gastroesophageal reflux disease) Lumbar radicular pain Postlaminectomy syndrome of lumbosacral region L2-S1 posterior fusion 03/2016 Surgical History H/O cardiac radiofrequency ablation H/O rotator cuff surgery right H/O: hysterectomy Previous back surgery L2-S1 posterior fusion (03/2016) Family History Other No pertinent family history Social History Smoking Status: Never smoker Second Hand Exposure: No; Hx Alcohol Use: No Hx Substance Use: No Preferred Language: Sami Communication Ability: Effective Visual Impairment: Limited Hearing Ability: Normal Certified Energy Manager Required: No Beliefs That Will Affect Care: None marital status: Current Living Situation: Spouse current occupational status: retired Feels Safe at Home: Yes Assistive Devices: Glasses Review of Systems A total of 10 systems reviewed and were otherwise negative All systems reviewed & are unremarkable except as noted in HPI & below Physical Exam Vital Signs Vital Signs - 24 hr 01/29/22 13:37 01/29/22 16:57 Temperature 36.7 C Temperature Source Temporal Artery Scan Pulse Rate 78 Pulse Rate [Right Finger] 68 Pulse Rhythm [Right Finger] Regular Pulse Strength [Right Finger] Normal Respiratory Rate 18 20 Respiratory Effort / Characteristics Non-Labored Spontaneous Respiratory Depth Normal Respiratory Pattern Regular Blood Pressure 120/86 Blood Pressure [Left Arm] 160/90 H Blood Pressure Mean 97 Blood Pressure Mean [Left Arm] 113 Blood Pressure Position [Left Arm] Sitting Pulse Oximetry 95 99 Oxygen Delivery Method Room Air Room Air Sepsis New/Unexplained Change in Mental Status No Sepsis Action Taken by Nursing No Action Required GENERAL: alert, well appearing, well nourished, no distress, non-toxic EYE EXAM: normal conjunctiva, PERRL and EOM's grossly intact OROPHARYNX: no exudate, no erythema, lips, buccal mucosa, and tongue normal and mucous membranes are moist NECK: supple, no nuchal rigidity, no adenopathy, non-tender LUNGS: Clear to auscultation. Normal chest wall mechanics, no w/r/r HEART: no murmurs, S1 normal and S2 normal ABDOMEN: abdomen soft, epigastric tenderness with palpation, normo-active bowel sounds, no masses, no rebound or guarding. Dull to percussion. BACK: Back is symmetrical on inspection and there is no deformity, no midline tenderness, no CVA tenderness. SKIN: no rashes and no bruising UPPER EXTREMITIES: upper extremities are grossly normal. FROM, nml pulses b/l. LOWER EXTREMITIES: No pitting edema. FROM, nml pulses b/l. NEURO EXAM: Normal sensorium, cranial nerves II-XII grossly intact, normal speech, no gross weakness of arms, no gross weakness of legs. Gross sensation intact. Course Course 165: Patient updated at bedside on results. No significant improvement with medications thus far. 1835: Pt states still very nauseated and bloated. Additional meds given without relief. 1850: No improvement. Will add compazine. Administered Medications Acetaminophen (Acetaminophen 325 Mg Tab) 650 mg PO Q6H PRN PRN Reason: Pain or Fever Stop: 02/28/22 22:12 Last Admin: 01/30/22 22:16 Dose: 650 mg Documented by: [id number] Admin: 01/30/22 15:58 Dose: 650 mg Documented by: [id number] Allopurinol (Allopurinol 100 Mg Tab) 100 mg PO DAILY [facility] Stop: 03/01/22 08:59 Last Admin: 01/30/22 08:30 Dose: 100 mg Documented by: [id number] Aspirin (Aspirin 81 Mg Ectab) 81 mg PO HS [facility] Stop: 02/28/22 22:12 Last Admin: 01/30/22 20:40 Dose: 81 mg Documented by: [id number] Admin: 01/30/22 01:12 Dose: 81 mg Documented by: [id number] Atorvastatin Calcium (Atorvastatin 20 Mg Tab) 20 mg PO DAILY [facility] Stop: 03/01/22 08:59 Last Admin: 01/30/22 08:30 Dose: 20 mg Documented by: [id number] Donepezil HCl (Donepezil Hcl 5 Mg Tab) 5 mg PO [facility] Stop: 02/28/22 22:12 Last Admin: 01/30/22 20:40 Dose: 5 mg Documented by: [id number] Admin: 01/30/22 01:13 Dose: 5 mg Documented by: [id number] Enoxaparin Sodium (Enoxaparin Inj 40 Mg/0.4 Ml Syr) 40 mg SQ Q24H [facility] Stop: 03/01/22 08:59 Last Admin: 01/30/22 08:30 Dose: 40 mg Documented by: [id number] Piperacillin Sod/Tazobactam (Sod 3.375 gm/ Dextrose) 115 mls @ 28.75 mls/hr IV Q8H [facility]; Protocol Stop: 02/09/22 00:00 Last Infusion: 01/30/22 20:26 Dose: 0 mls/hr Documented by: [id number] Admin: 01/30/22 15:59 Dose: 30 mls/hr Documented by: [id number] Infusion: 01/30/22 12:33 Dose: 0 mls/hr Documented by: [id number] Admin: 01/30/22 08:29 Dose: 28.8 mls/hr Documented by: [id number] Infusion: 01/30/22 05:16 Dose: 0 mls/hr Documented by: [id number] Admin: 01/30/22 01:10 Dose: 28.8 mls/hr Documented by: [id number] Potassium Chloride 10 meq/ (Lactated Ringer's) 1,005 mls @ 80 mls/hr IV .[id number] [facility] Stop: 03/01/22 08:47 Last Infusion: 01/30/22 20:25 Dose: 0 mls/hr Documented by: [id number] Infusion: 01/30/22 13:18 Dose: 80 mls/hr Documented by: [id number] Admin: 01/30/22 09:57 Dose: 100 mls/hr Documented by: [id number] Insulin Aspart (Insulin Aspart Per Unit) 0 units SC ACHS EWA Stop: 02/28/22 22:12 Last Admin: 01/30/22 20:34 Dose: Not Given Documented by: [id number] Admin: 01/30/22 17:02 Dose: Not Given Documented by: [id number] Admin: 01/30/22 11:57 Dose: Not Given Documented by: [id number] Admin: 01/30/22 07:59 Dose: Not Given Documented by: [id number] Admin: 01/30/22 01:23 Dose: Not Given Documented by: [id number] Cosigned by: [id number] Lorazepam (Lorazepam 0.5 Mg Tab) 0.5 mg PO DAILY PRN PRN Reason: Anxiety Stop: 02/28/22 21:27 Last Admin: 01/29/22 21:32 Dose: 0.5 mg Documented by: [id number] Losartan Potassium (Losartan Potassium 25 Mg Tab) 25 mg PO QAM EWA Stop: 03/01/22 08:59 Last Admin: 01/30/22 08:31 Dose: 25 mg Documented by: [id number] Metoprolol Succinate (Metoprolol Succ 50mg Ext Rel Tab) 50 mg PO DAILY EWA Stop: 03/01/22 08:59 Last Admin: 01/30/22 08:31 Dose: 50 mg Documented by: [id number] Pantoprazole Sodium (Pantoprazole 40 Mg Tab) 40 mg PO DAILY [facility] Stop: 03/01/22 08:59 Last Admin: 01/30/22 08:31 Dose: 40 mg Documented by: [id number] Zolpidem Tartrate (Zolpidem Tartrate 10 Mg Tab) 10 mg PO HS [facility] Stop: 02/28/22 22:12 Last Admin: 01/30/22 22:14 Dose: 10 mg Documented by: [id number] Admin: 01/30/22 01:13 Dose: 10 mg Documented by: [id number] Discontinued Medications Al Hydrox/Mg Hydrox/Simethicone (Aluminum/Magnesium Susp 30 Ml Udc) 15 ml PO NOW STA Stop: 01/29/22 17:25 Last Admin: 01/30/22 00:23 Dose: Not Given Documented by: [id number] Amlodipine Besylate (Amlodipine Besylate 5 Mg Tab) 5 mg PO ONE ONE Stop: 01/30/22 18:01 Last Admin: 01/30/22 18:04 Dose: 5 mg Documented by: [id number] Famotidine (Pepcid 20mg Iv Push) 20 mg in 5 mls @ 2.5 mls/min IV NOW STA Stop: 01/29/22 14:25 Last Admin: 01/29/22 15:10 Dose: 2.5 mls/min Documented by: [id number] Sodium Chloride (Nss 1000ml) 1,000 mls @ 500 mls/hr IV .Q2H EWA Stop: 02/28/22 14:29 Last Admin: 01/30/22 00:32 Dose: Not Given Documented by: [id number] Admin: 01/30/22 00:32 Dose: Not Given Documented by: [id number] Admin: 01/30/22 00:31 Dose: Not Given Documented by: [id number] Infusion: 01/29/22 19:35 Dose: 0 mls/hr Documented by: [id number] Admin: 01/29/22 16:45 Dose: 500 mls/hr Documented by: [id number] Infusion: 01/29/22 16:45 Dose: 500 mls/hr Documented by: [id number] Admin: 01/29/22 15:12 Dose: 500 mls/hr Documented by: [id number] Sodium Chloride (Nss) 500 mls @ 999 mls/hr IV .Q31M ONE Stop: 01/29/22 16:45 Last Infusion: 01/29/22 17:50 Dose: 0 mls/hr Documented by: [id number] Admin: 01/29/22 16:45 Dose: 999 mls/hr Documented by: [id number] Magnesium Sulfate/Dextrose (Magnesium Sulfate / D5w) 1 gm in 100 mls @ 100 mls/hr IV Q1H EWA Stop: 01/29/22 18:14 Last Infusion: 01/29/22 19:35 Dose: 0 mls/hr Documented by: [id number] Admin: 01/29/22 18:10 Dose: 100 mls/hr Documented by: [id number] Infusion: 01/29/22 18:07 Dose: 0 mls/hr Documented by: [id number] Admin: 01/29/22 16:45 Dose: 100 mls/hr Documented by: [id number] Acetaminophen (Ofirmev) 1,000 mg in 100 mls @ 400 mls/hr IV NOW STA Stop: 01/29/22 17:19 Last Infusion: 01/29/22 19:35 Dose: 0 mls/hr Documented by: [id number] Admin: 01/29/22 18:33 Dose: 400 mls/hr Documented by: [id number] Piperacillin Sod/Tazobactam Sod (Zosyn) 4.5 gm in 120 mls @ 240 mls/hr IV NOW ONE Stop: 01/29/22 17:34 Last Infusion: 01/29/22 20:19 Dose: 0 mls/hr Documented by: [id number] Admin: 01/29/22 19:37 Dose: 240 mls/hr Documented by: [id number] Prochlorperazine (Compazine) 1 mls @ 1 mls/min IV ONE ONE Stop: 01/29/22 18:49 Last Admin: 01/29/22 19:37 Dose: 1 mls/min Documented by: [id number] Lactated Ringer's (Lr) 1,000 mls @ 125 mls/hr IV .Q8H EWA Stop: 02/28/22 22:12 Last Admin: 01/30/22 09:59 Dose: Not Given Documented by: [id number] Infusion: 01/30/22 09:52 Dose: 0 mls/hr Documented by: [id number] Admin: 01/30/22 01:05 Dose: 125 mls/hr Documented by: [id number] Magnesium Sulfate/Dextrose (Magnesium Sulfate / D5w) 1 gm in 100 mls @ 50 mls/hr IV ONE ONE Stop: 01/30/22 10:47 Last Infusion: 01/30/22 12:34 Dose: 0 mls/hr Documented by: [id number] Admin: 01/30/22 09:57 Dose: 50 mls/hr Documented by: [id number] Ioversol (Optiray 320 100ml) 92 ml IV ONCE ONE Stop: 01/29/22 15:42 Last Admin: 01/29/22 15:47 Dose: 92 ml Documented by: [id number] Ondansetron HCl (Ondansetron Inj 2 Mg/Ml 2 Ml Vial) 4 mg IV NOW STA Stop: 01/29/22 18:04 Last Admin: 01/29/22 18:33 Dose: 4 mg Documented by: [id number] Medical Decision Making Differential Diagnosis Differential: Gastroenteritis, Food Borne, Esophageal Perforation, , Electrolyte Abnormality, Dehydration, Intraabdominal Infection, UTI/Pyelonephritis, Bowel Obstruction, Biliary Pathology, amongst other pathology entertained. Medical Records Attestation: I reviewed the patient's medical records. Home Medications Current Medication List: was personally reviewed by me Laboratory Data Attestation: I reviewed the patient's lab results. Result diagrams: 01/30/22 05:20 01/30/22 05:20 Lab Results 01/29/22 01/29/22 01/29/22 Range/Units 14:48 14:48 14:48 WBC 5.20 (4.8-10.8) K/uL RBC 4.44 (4.2-5.4) M/uL Hgb 13.3 (12.0-16.0) g/dL Hct 39.9 (37-47) % MCV 89.9 (80-100) fL MCH 30.0 (25-34) pg MCHC 33.3 (32-36) g/dL RDW Std Deviation 47.3 H (36.4-46.3) fL RDW Coeff of Sari 14.3 (11.5-14.5) % Plt Count 206 (130-400) K/uL MPV 10.5 H (7.4-10.4) fL Immature Gran % (Auto) 0.2 % Neut % (Auto) 54.8 % Lymph % (Auto) 33.5 % [place] % (Auto) 9.2 % Eos % (Auto) 1.7 % Baso % (Auto) 0.6 % Neut # (Auto) 2.85 (1.4-6.5) K/uL Lymph # (Auto) 1.74 (1.2-3.4) K/uL [place] # (Auto) 0.48 (0.11-0.59) K/uL Eos # (Auto) 0.09 (0-0.5) K/uL Baso # (Auto) 0.03 (0-0.2) K/uL Immature Gran # (Auto) 0.01 (0.00-0.02) K/uL Sodium 140 (136-145) mmol/L Potassium 3.8 (3.5-5.1) mmol/L Chloride 105 (98-107) mmol/L Carbon Dioxide 25 (21-32) mmol/L Anion Gap 10 (3-11) BUN 11 (6-23) mg/dl Creatinine 1.01 (0.6-1.2) mg/dl Est Cr Clr Drug Dosing 50.9 ml/min Est GFR ( Amer) 64.0 ml/min Est GFR (Non-Af Amer) 55.2 ml/min BUN/Creatinine Ratio 10.9 (10-20) Glucose 96 (70-99(Fasting)) mg/dl Lactate (0.4-2.0) mmol/L Calcium 9.7 (8.5-10.1) mg/dl Magnesium 1.4 L (1.7-2.4) mg/dl Total Bilirubin 0.5 (0.2-1.0) mg/dl AST 18 (13-39) U/L ALT 11 (7-52) U/L Alkaline Phosphatase 65 (34-104) U/L Troponin I High Sens 4.0 (0-14) pg/ml Total Protein 6.9 (6.0-8.3) gm/dl Albumin 3.9 (3.4-5.0) gm/dl Globulin 3.0 (2.5-4.0) gm/dl Albumin/Globulin Ratio 1.3 (0.9-2) Lipase 54 (11-82) U/L TSH 0.778 (0.300-4.500) uIu/ml SARS-CoV-2, RNA, NAAT (NEGATIVE) 01/29/22 01/29/22 Range/Units 14:48 19:49 WBC (4.8-10.8) K/uL RBC (4.2-5.4) M/uL Hgb (12.0-16.0) g/dL Hct (37-47) % MCV (80-100) fL MCH (25-34) pg MCHC (32-36) g/dL RDW Std Deviation (36.4-46.3) fL RDW Coeff of Sari (11.5-14.5) % Plt Count (130-400) K/uL MPV (7.4-10.4) fL Immature Gran % (Auto) % Neut % (Auto) % Lymph % (Auto) % [place] % (Auto) % Eos % (Auto) % Baso % (Auto) % Neut # (Auto) (1.4-6.5) K/uL Lymph # (Auto) (1.2-3.4) K/uL [place] # (Auto) (0.11-0.59) K/uL Eos # (Auto) (0-0.5) K/uL Baso # (Auto) (0-0.2) K/uL Immature Gran # (Auto) (0.00-0.02) K/uL Sodium (136-145) mmol/L Potassium (3.5-5.1) mmol/L Chloride (98-107) mmol/L Carbon Dioxide (21-32) mmol/L Anion Gap (3-11) BUN (6-23) mg/dl Creatinine (0.6-1.2) mg/dl Est Cr Clr Drug Dosing ml/min Est GFR ( Amer) ml/min Est GFR (Non-Af Amer) ml/min BUN/Creatinine Ratio (10-20) Glucose (70-99(Fasting)) mg/dl Lactate 0.8 (0.4-2.0) mmol/L Calcium (8.5-10.1) mg/dl Magnesium (1.7-2.4) mg/dl Total Bilirubin (0.2-1.0) mg/dl AST (13-39) U/L ALT (7-52) U/L Alkaline Phosphatase (34-104) U/L Troponin I High Sens (0-14) pg/ml Total Protein (6.0-8.3) gm/dl Albumin (3.4-5.0) gm/dl Globulin (2.5-4.0) gm/dl Albumin/Globulin Ratio (0.9-2) Lipase (11-82) U/L TSH (0.300-4.500) uIu/ml SARS-CoV-2, RNA, NAAT NEGATIVE (NEGATIVE) Imaging Data Radiologist's Impression: Abdomen/Pelvis CT 01/29/22 14:24 CT SCAN OF THE ABDOMEN AND PELVIS WITH IV CONTRAST CLINICAL HISTORY: Generalized abdominal pain. Nausea. COMPARISON STUDY: Abdominal CT dated 02/21/2020. TECHNIQUE: Following the IV administration of 92 cc of Optiray 320, CT scan of the abdomen and pelvis is performed from the lung bases to the proximal femora. Images are reviewed in the axial, sagittal, and coronal planes. IV contrast was administered without complication. A dose lowering technique was utilized adhering to the principles of ALARA. The Examination is degraded by streak artifact from extensive metallic spinal hardware. CT DOSE: 694.49 mGy.cm FINDINGS: Lung bases: The heart is normal in size and without pericardial effusion. The lung bases are clear noting bibasilar scarring/atelectasis. Liver: The contrast-enhanced liver is normal in size, contour, and attenuation. There is no intrahepatic biliary ductal dilatation. The hepatic veins and portal veins are patent. Gallbladder: Unremarkable. Spleen: Normal in size and attenuation. Pancreas: Unremarkable. Adrenal glands: Unremarkable. Kidneys: The contrast enhanced kidneys demonstrate mild cortical atrophy and are without hydronephrosis. The kidneys enhance symmetrically. Cortical scarring is noted in the interpolar left kidney. A 1.0 cm enhancing lesion is suggested in the upper pole of the left kidney on image #97. Abdominal vasculature: The abdominal aorta is normal in course and caliber noting moderate to advanced atherosclerotic calcification. Bowel: There is mild to moderate sigmoid diverticulosis. There is wall thickening with pericolonic inflammation involving the sigmoid seen on image #295 consistent with mild acute diverticulitis. No organized fluid collection is seen to suggest abscess. There is no bowel obstruction. The appendix is well-visualized and normal. A 1.6 cm metallic foreign body versus surgical clip is noted in the cecum on image #216. Peritoneum: There is no intraperitoneal free air or abdominal ascites. There is a fat-containing umbilical hernia. Lymphadenopathy: None. Pelvic viscera: The bladder is normal as visualized. The uterus is surgically a bsent. Tiny simple cystic foci are again seen in both ovaries and measure up to 13 mm. Skeletal structures: The skeletal structures are osteopenic. There is lumbosacral spondylosis with postoperative change from laminectomy and posterior fusion seen from L2-S1. No lytic or blastic lesions are seen. IMPRESSION: 1. Mild acute diverticulitis of the sigmoid colon. 2. No intraperitoneal free air is identified and there is no organized fluid collection to suggest abscess. 3. There is a 1.0 cm enhancing nodule suggested in the upper pole of the left kidney. Nonemergent follow-up with urology is recommended. 4. There is an intraluminal metallic foreign body versus surgical clip identified in the cecum. 5. Additional findings as above. ACT 112: Negative or not required by law. Electronically signed by: Rolanod Griggs M.D. 01/29/2022 4:21 PM Chest X-Ray 01/29/22 17:24 SINGLE VIEW CHEST CLINICAL HISTORY: Vomiting FINDINGS: An AP, portable, upright chest radiograph is compared to chest x-ray and chest CT dated 12/21/2021. The heart is mildly enlarged noting atherosclerotic calcification of the thoracic aorta. The pulmonary vasculature is noncongested. Chronic residual thickening is similar to previous. Atelectasis is noted at the lung bases. The lungs and pleural spaces are otherwise clear. No pneumothorax is seen. The skeletal structures are osteopenic. The bony thorax is grossly intact. Degenerative change is noted in the shoulders. IMPRESSION: Mild cardiomegaly with no active disease in the chest. ACT 112: Negative or not required by law. Electronically signed by: Rolando Griggs M.D. 01/29/2022 6:00 PM ECG Data Attestation: I personally reviewed and interpreted this ECG as follows: Indication: + abdominal pain and + nausea Rate (beats per minute): 65 Rhythm: + normal sinus ECG Intervals/blocks: + Normal QRS and + Normal QT ECG [place]: + Normal ECG ST segments: + Nonspecific ST abnormalities MDM Narrative An order was placed for continuous cardiac monitoring. The monitor shows a rate of _68_ with _normal sinus_ rhythm. This is a 71 yo female who presents due to persistent n/v and abd pain. Patient was seen by PCP and started on flagyl and zofran without any improvement. Patient is unsure why she was started on flagyl. Initially sx started after a new medication for depression, however no improvement after cessation of this med. Labs sent and CT performed which showed mild diverticulitis. Patient was given medications for pain and nausea as well as IVF without improvement. Patient still unable to tolerate po. Hypomagnesemia was repleted and is likely from decrease po intake. VS stable and pt afebrile. Due to persistent symptoms, case discussed with hospitalist for additional evaluation and mgmt. Patient has no contributory family history. Patient was first seen and observation began at 1357 and was necessary in order to evaluate symptoms and provide multiple doses of medications to try and control symptoms. Upon re- evaluation, 5 hours of observation revealed that the patient could be discharged. Discharge from observation at time 1900. Impression & Plan Nausea & vomiting, Abdominal pain, Hypomagnesemia, Diverticulitis Discharge Plan Visit Data Chief Complaint: Illness Stated Complaint: NAUSEOUS, VOMITTING, LIGHTHEADED ED Provider: Connie Harris Discharge Problem: Nausea & vomiting, Abdominal pain, Hypomagnesemia, Diverticulitis Patient Disposition: Admitted As Inpatient Condition: Good Discharge Instructions Interventions: ED Discharge Assessment Last Done: 01/29/22 22:13 Discharge Problem: Nausea & vomiting Qualifiers: Vomiting type: unspecified Qualified Code(s): R11.2 - Nausea with vomiting, unspecified Abdominal pain Qualifiers: Abdominal location: epigastric Qualified Code(s): R10.13 - Epigastric pain
[2022-01-29] MEDS: MAGNESIUM SULFATE / D5W 1 GM/100 ML BAG IV SCH ×2 (16:45→18:10)
[2022-01-29] MEDS ORDERED: ACETAMINOPHEN 1,000 MG/100 ML VIAL IV STA (17:05)
[2022-01-29] MEDS ORDERED: PIPERACILLIN/TAZOBACTAM 4.5 GM/120 ML BAG IV ONE (17:05)
[2022-01-29] MEDS ORDERED: PIPERACILL/TAZOBAC CONSULT ACTIVE PRN (17:05)
[2022-01-29] MEDS ORDERED: ALUMINUM/MAGNESIUM SUSP 30 ML UDC PO STA (17:24)
--- NOTE | 2022-01-29 18:01 | XRay Report ---
SINGLE VIEW CHEST CLINICAL HISTORY: Vomiting FINDINGS: An AP, portable, upright chest radiograph is compared to chest x-ray and chest CT dated 12/03. The heart is mildly enlarged noting atherosclerotic calcification of the thoracic aorta. The pulmonary vasculature is noncongested. Chronic residual thickening is similar to previous. Atelectasi s is noted at the lung bases. The lungs and pleural spaces are otherwise clear. No pneumothorax is se en. The skeletal structures are osteopenic. The bony thorax is grossly intact. Degenerative change is noted in the shoulders. IMPRESSION: Mild cardiomegaly with no active disease in the chest. ACT 112: Negative or not required by law. Electronically signed by: Rolando Griggs M.D. 01/29/2022 6:00 PM
[2022-01-29] MEDS ORDERED: ONDANSETRON INJ 2 MG/ML 2 ML VIAL IV STA (18:03)
[2022-01-29] MEDS ORDERED: PROCHLORPERAZINE 1 ML IV ONE (18:48)
--- NOTE | 2022-01-29 19:20 | History & Physical Report ---
Date of Service January 29, 2022 Assessment & Plan (1) Diverticulitis: Plan: Adelaide Gill is a 71yo female with PMHx significant for fibromyalgia, T2DM (A1c 6.2 in 02/2020), HLD, HTN, osteoarthritis and GERD who presented to [facility] ED on 01/29 for nausea and abdominal pain x1 week - mild sigmoid diverticulitis (uncomplicated) per imaging. Acute Sigmoid Diverticulitis Symptoms x1 week and not responsive to outpatient trial of Flagyl x5 days, with inability to tolerate PO intake. CT A/P showing acute uncomplicated sigmoid diverticulitis. - received Zosyn x1 in ED - will continue for now - s/p 1.5L NSS bolus in ED - will continue with LR @125cc/hr - PRN Zofran/Maalox for nausea, PRN Tylenol for pain - trend CBC in AM Hypomagnesemia Mg 1.4, repleted with 2g IV in ED. - trend in AM Left Kidney Mass CT A/P showed incidental finding of 1.0 enhancing nodule on upper pole of left kidney. - recommend non-emergent Urology follow-up - per PCP Chronic Medical Problems HTN: continue Losartan and Toprol XL HLD: continue statin GERD: Protonix per hospital formulary T2DM: A1c 6.2 in 02/2020. Repeat A1c with AM labs. SSI while hospitalized. Dementia: continue Donepezil Chronic Constipation: hold Lactulose for now as patient has had daily BMs. PRN Miralax ordered. Gout: continue Allopurinol FEN/GI: clear liquid diet and advance as tolerated, LR @125cc/hr DVT Prophylaxis: Lovenox Code Status: full code Disposition: med/tele (2) Nausea & vomiting: (3) Abdominal pain: (4) Hypomagnesemia: (5) Hypertension: (6) Hyperlipidemia: (7) GERD (gastroesophageal reflux disease): (8) Diabetes mellitus, type 2: (9) Anxiety: (10) Left kidney mass: History of Present Illness Chief Complaint: GI illness Primary Care Provider: Justino Tovar DO Adelaide Gill is a 71yo female with PMHx significant for fibromyalgia, T2DM (A1c 6.2 in 02/2020), HLD, HTN, osteoarthritis and GERD who presented to [facility] ED on 01/29 for GI illness. Patient reports that she was started on a new medication for depression ~1 week ago and started to have nausea and abdominal pain. She stopped taking the medication after several days but symptoms persisted so she spoke with her PCP who prescribed her Zofran PRN and scheduled Flagyl ~5 days ago for presumed GI infection. Symptoms have persisted and patient has had difficulty tolerating any PO intake including fluids. Denies fever/chills. In the ED the patient was mildly hypertensive but otherwise hemodynamically stable. Labs significant for Mg 1.4 but otherwise within normal limits - no leukocytosis and lipase WNL. Lactate 0.8. CXR showing mild cardiomegaly but no active cardiopulmonary disease. CT A/P showing mild sigmoid diverticulitis without evidence for free air/perforation or abscess. (Also CT A/P showed incidental finding of 1.0 enhancing nodule on upper pole of left kidney that requires non-emergent Urology follow-up.) In the ED patient received 1.5L NSS boluses, Compazine/Pepcid/Zofran/Maalox for N/V, Mg 2g IV, Tylenol 1g IV x1. Also was started on Zosyn. Allergies Allergy/AdvReac Type Severity Reaction Status Date / Time No Known Allergies Allergy Verified 01/29/22 15:19 Home Medications Medication Instructions Recorded Confirmed Type aspirin 81 mg tablet,delayed 81 mg PO HS 10/27/19 01/29/22 History release atorvastatin 20 mg tablet 20 mg PO DAILY 10/27/19 01/29/22 History metoprolol succinate 50 mg capsule 50 mg PO DAILY 10/27/19 01/29/22 History sprinkle, ext. release 24 hr omeprazole 40 mg capsule,delayed 40 mg PO DAILY 10/27/19 01/29/22 History release lorazepam 0.5 mg tablet 0.5 mg PO DAILY PRN 04/05/20 01/29/22 History allopurinol 100 mg tablet 100 mg PO DAILY 12/21/21 01/29/22 History donepezil 5 mg tablet 5 mg PO HS 12/21/21 01/29/22 History zolpidem 10 mg tablet 10 mg PO HS 12/21/21 01/29/22 History losartan 25 mg tablet 25 mg PO QAM #30 tab 12/22/21 01/29/22 Rx lactulose 10 gram/15 mL oral 15 ml PO BID 01/29/22 01/29/22 History solution metronidazole 500 mg tablet 500 mg PO TID 01/29/22 01/29/22 History ondansetron HCl 8 mg tablet 8 mg PO BID 01/29/22 01/29/22 History Past Med/Surg History Medical History (Updated 01/29/22 @ 20:20 by Krzysztof Reynaga MD) Anxiety Chronic low back pain Diabetes mellitus, type 2 GERD (gastroesophageal reflux disease) Lumbar radicular pain Postlaminectomy syndrome of lumbosacral region L2-S1 posterior fusion 03/2016 Surgical History H/O cardiac radiofrequency ablation H/O rotator cuff surgery right H/O: hysterectomy Previous back surgery L2-S1 posterior fusion (03/2016) Family History Other No pertinent family history Social History Smoking Status: Never smoker Second Hand Exposure: No; Hx Alcohol Use: No Hx Substance Use: No Preferred Language: Kyrgyz Communication Ability: Effective Visual Impairment: Limited Hearing Ability: Normal Library Clerk Talking Books Required: No Beliefs That Will Affect Care: None marital status: Current Living Situation: Spouse current occupational status: retired Feels Safe at Home: Yes Assistive Devices: Glasses Review of Systems Review of Systems: All systems reviewed & are unremarkable except as noted in HPI & below Physical Exam Physical Exam: General: A&Ox3. NAD. Cooperative. HEENT: Atraumatic, normocephalic. Pulm: CTAB A&P. -wheezes, -rales, -rhonchi. Symmetrical chest rise. No increase work of breathing. No respiratory distress. Cardiac: RRR, -mrg. Radial pulses intact and symmetrical. No LE edema. Abdominal: soft, non-tender, non-distended, BS x 4 Skin: warm, dry, no rash Results & Data Results & Data ([facility]) Vital Signs (Past 12 Hours) Vital Signs Temp Pulse Pulse Resp BP BP Pulse Ox 01/29/22 16:57 68 20 160/90 H 99 01/29/22 13:37 36.7 C 78 18 120/86 95 Supervising Physician Co-Signing Physician Notes Attending addendum: I have physically seen this patient, have supervised the medical residents activities, and agree with the H&P unless as otherwise noted. Assessment and Plan: Mild acute sigmoid diverticulitis- Zosyn 4.5 g IV every 8 hours Famotidine 20 mg IV every 12 hours Zofran 4 mg IV every 6 hours as needed Received 1.5 L normal saline from the ED LR at 125 MLS per hour Acetaminophen 650 mg p.o. every 6 hours pain mild pain or fever Full liquid diet, advance as tolerated Hypomagnesemia- Magnesium 1.4 on admission received magnesium 2 g IV from the ED Repeat laboratories in a.m. Left kidney mass- 1 cm enhancing nodule upper pole left kidney Urology follow-up Remaining orders and notations as noted Resident Activity Tracking Resident Involvement: Resident Care Provided Care Provided: Adult Hospital Medicine (1) Hyperlipidemia Hyperlipidemia type: mixed hyperlipidemia Qualified Code(s): E78.2 - Mixed hyperlipidemia (2) GERD (gastroesophageal reflux disease) Esophagitis presence: esophagitis presence not specified Qualified Code(s): K21.9 - Gastro-esophageal reflux disease without esophagitis (3) Nausea & vomiting Vomiting type: unspecified Qualified Code(s): R11.2 - Nausea with vomiting, unspecified (4) Abdominal pain Abdominal location: epigastric Qualified Code(s): R10.13 - Epigastric pain (5) Hypertension Hypertension type: unspecified Qualified Code(s): I10 - Essential (primary) hypertension
[2022-01-29] MEDS ORDERED: LORazepam 0.5 MG TAB PO PRN (21:28)
[2022-01-29] MEDS ORDERED: CARBOHYDRATES FOR HYPOGLYCEMIA PO PRN (22:13)
[2022-01-29] MEDS ORDERED: ALUMINUM/MAGNESIUM SUSP 30 ML UDC PO PRN (22:13)
[2022-01-29] MEDS ORDERED: GLUCOSE 10 TABS/TUBE PO PRN (22:13)
[2022-01-29] MEDS ORDERED: POLYETHYLENE (MIRALAX) 17 GM PACK PO PRN (22:13)
[2022-01-29] MEDS ORDERED: GLUCOSE 40% GEL 15 GM TUBE PO PRN (22:13)
[2022-01-29] MEDS ORDERED: ONDANSETRON INJ 2 MG/ML 2 ML VIAL IV PRN (22:13)
[2022-01-29] MEDS ORDERED: GLUCAGON FOR INJ 1 MG VIAL SQ PRN (22:13)
[2022-01-29] MEDS ORDERED: DEXTROSE 50% 50 ML SYRINGE IV PRN (22:13)
[2022-01-30] MEDS: SODIUM CHLORIDE 0.9% 1000ML 1,000 ML IV SCH ×2 (00:31→00:32)
[2022-01-30] MEDS: LACTATED RINGER'S 1,000 ML IV SCH ×2 (01:05→09:59)
[2022-01-30] MEDS: PIPERACILLIN/TAZOBACTAM 3.375 GM in DEXTROSE 5% 100 ML IV SCH ×3 (01:10→15:59)
[2022-01-30] MEDS: ASPIRIN 81 MG ECTAB PO SCH ×2 (01:12→20:40)
[2022-01-30] MEDS: ZOLPIDEM TARTRATE 10 MG TAB PO SCH ×2 (01:13→22:14)
[2022-01-30] MEDS: DONEPEZIL HCL 5 MG TAB PO SCH ×2 (01:13→20:40)
[2022-01-30] MEDS: INSULIN ASPART PER UNIT SC SCH ×5 (01:23→20:34)
--- NOTE | 2022-01-30 05:07 | Billing Data ---
Date of Service January 30, 2022 Coding Level of Care Code 38800 Initial Inpt Care Lvl 3
[2022-01-30 05:32] LABS: Basophils # (auto) 0.03 K/uL (0-0.2); Basophils % (auto) 0.7 %; Eosinophils # (auto) 0.12 K/uL (0-0.5); Eosinophils % (auto) 2.8 %; Hemoglobin 12.4 g/dL (12.0-16.0); Immature Granulocytes # (auto) 0.02 K/uL (0.00-0.02); Immature Granulocytes % (auto) 0.5 %; Lymphocytes # (auto) 1.64 K/uL (1.2-3.4); Lymphocytes % (auto) 38.1 %; Mean Corpuscular Hemoglobin 28.4 pg (25-34); Mean Corpuscular Hgb Conc 31.8 g/dL (32-36); Mean Corpuscular Volume 89.2 fL (80-100); Mean Platelet Volume 10.7 fL (7.4-10.4); Monocytes # (auto) 0.43 K/uL (0.11-0.59); Neutrophils # (auto) 2.07 K/uL (1.4-6.5); Neutrophils % (auto) 47.9 %; Platelet Count 192 K/uL (130-400); RDW Coefficient of Variation 14.5 % (11.5-14.5); RDW Standard Deviation 47.3 fL (36.4-46.3); Red Blood Count 4.37 M/uL (4.2-5.4); White Blood Count 4.31 K/uL (4.8-10.8)
[2022-01-30 06:06] LABS: BUN Creatinine Ratio 8.2 (10-20); Calcium 9.1 mg/dl (8.5-10.1); Creatinine Clr Calc Pharmacy 52.4 ml/min; Est GFR (African American) 66.3 ml/min; Est GFR (Non-African American) 57.2 ml/min; Magnesium 1.8 mg/dl (1.7-2.4); Potassium 3.6 mmol/L (3.5-5.1)
--- NOTE | 2022-01-30 06:30 | Electrocardiogram Report ---
Test Reason : Blood Pressure : / mmHG Vent. Rate : 065 BPM Atrial Rate : 065 BPM P-R Int : 130 ms QRS Dur : 078 ms QT Int : 412 ms P-R-T Axes : 014 -23 018 degrees QTc Int : 428 ms Normal sinus rhythm Normal ECG When compared with ECG of 21-DEC-2021 16:12, No significant change was found Confirmed by Manolo Condon ([id number]) on 01/30/2022 6:30:12 AM Referred By: Justino Tovar Confirmed By:Manolo Condon
[2022-01-30] MEDS: ATORVASTATIN 20 MG TAB PO SCH (08:30)
[2022-01-30] MEDS: allopurinoL 100 MG TAB PO SCH (08:30)
[2022-01-30] MEDS: ENOXAPARIN INJ 40 MG/0.4 ML SYR SQ SCH (08:30)
[2022-01-30] MEDS: METOPROLOL SUCC 50MG EXT REL TAB PO SCH (08:31)
[2022-01-30] MEDS: LOSARTAN POTASSIUM 25 MG TAB PO SCH (08:31)
[2022-01-30] MEDS: PANTOprazole 40 MG TAB PO SCH (08:31)
--- NOTE | 2022-01-30 08:45 | Hospitalist Progress Note ---
Date of Service January 30, 2022 Assessment & Plan (1) Diverticulitis: Plan: Adelaide Gill is a 71yo female with PMHx significant for fibromyalgia, T2DM (A1c 6.2 in 02/2020), HLD, HTN, osteoarthritis and GERD who presented to [facility] ED on 01/29 for nausea and abdominal pain x1 week - mild sigmoid diverticulitis (uncomplicated) per imaging. Acute Sigmoid Diverticulitis Symptoms x1 week and not responsive to outpatient trial of Flagyl x5 days baker patricia not aqedquate treatment with Flagyl alone CT A/P showing acute uncomplicated sigmoid diverticulitis. Remains on Zosyn IVF -- added K, decreased to 100cc/hr. Will decrease to 80cc/hr as increasing PO intake Antiemetics/pain control prn No leukocytosis, afebrile Will advance to full liquid for this evening, low fiber planned for AM if tolerating well Monitor labs in AM Hypomagnesemia Mg 1.4, repleted with 2g IV in ED and mag 1.8 on repeat. Additional 1gm ordered to keep closer to 2 Monitor in AM Left Kidney Mass CT A/P showed incidental finding of 1.0 enhancing nodule on upper pole of left kidney. - recommend non-emergent Urology follow-up - can have follow up/referral with PCP HTN: continue Losartan and Toprol XL HLD: continue statin GERD: Protonix per hospital formulary T2DM: A1c 6.2 in 02/2020, repeat unchanged SSI while inpatient Monitor BSGs Dementia: very alert/oriented on examination. was at bedside as well as he stayed with her anxiety last evening continue Donepezil Chronic Constipation: hold Lactulose for now as patient has had daily BMs. PRN Miralax ordered. Gout: continue Allopurinol DVT Prophylaxis: Lovenox (2) Nausea & vomiting: Plan: no further vomiting nausea but improved, no need for medications currently but are available prn monitor (3) Abdominal pain: Plan: improving with tx as above (4) Hypomagnesemia: (5) Hypertension: (6) Hyperlipidemia: (7) GERD (gastroesophageal reflux disease): (8) Diabetes mellitus, type 2: (9) Anxiety: Plan: lorazepam available prn did have anxiety last evening reported, not given per review of medications (10) Left kidney mass: Admission and Anticipated Discharge Date Admission Date: January 29, 2022 Subjective Patient evaluated this morning. Feeling better this morning than she did last evening. Still crampy but no increased abdominal pain. States she had an increase in anxiety symptoms last evening after medication administration and lasted a while. States no allergies to antibiotics, only other medications were IV fluids and antiemetics. No further episodes. Issues in past with prednisone but did not get any steroids. She would feel more comfortable monitoring overnight to ensure able to keep up with oral intake as hadn't eaten much at home over the past 4 days. Discussed flagyl not adequate treatment alone for diverticulitis. Discussed advancing diet later this evening and if able to tolerate/no increased pain will plan for discharge tomorrow. Questions/concerns addressed at this time. Review of Systems Review of Systems: All systems reviewed & are unremarkable except as noted in HPI & below Physical Exam Physical Exam: General: WD, WN female sitting up in chair eating lunch, NAD. at bedside HEENT: head normocephalic, atraumatic, mmm, trachea midline without deviation Resp: CTAB, no w/c/r, on room air SpO2 98% CV: RRR, no m/r/g, no edema, cap refill wnl GI: +BS, soft, non-tender (reported mild cramping)no rebound/guarding : no starks MSK/Neuro: follows commands, moves all extremities, CN intact grossly, no focal deficit Psych: AOx3, pleasant and cooperative Results & Data Results & Data ([facility]) Vital Signs (Past 12 Hours) Vital Signs Pulse Pulse Resp BP BP Pulse Ox Pulse Ox 01/30/22 03:21 93 01/30/22 01:04 85 16 176/106 H 96 01/30/22 01:03 71 16 176/106 H 96 01/29/22 22:01 62 01/29/22 21:35 61 15 187/87 H 96 01/29/22 21:30 61 26 H 95 01/29/22 21:00 61 17 95 Laboratory Results 01/30/22 01/30/22 01/30/22 Range/Units 05:20 05:20 01:17 WBC 4.31 L (4.8-10.8) K/uL RBC 4.37 (4.2-5.4) M/uL Hgb 12.4 (12.0-16.0) g/dL Hct 39.0 (37-47) % MCV 89.2 (80-100) fL MCH 28.4 (25-34) pg MCHC 31.8 L (32-36) g/dL RDW Std Deviation 47.3 H (36.4-46.3) fL RDW Coeff of Sari 14.5 (11.5-14.5) % Plt Count 192 (130-400) K/uL MPV 10.7 H (7.4-10.4) fL Immature Gran % (Auto) 0.5 % Neut % (Auto) 47.9 % Lymph % (Auto) 38.1 % [place] % (Auto) 10.0 % Eos % (Auto) 2.8 % Baso % (Auto) 0.7 % Neut # (Auto) 2.07 (1.4-6.5) K/uL Lymph # (Auto) 1.64 (1.2-3.4) K/uL [place] # (Auto) 0.43 (0.11-0.59) K/uL Eos # (Auto) 0.12 (0-0.5) K/uL Baso # (Auto) 0.03 (0-0.2) K/uL Immature Gran # (Auto) 0.02 (0.00-0.02) K/uL Sodium 140 (136-145) mmol/L Potassium 3.6 (3.5-5.1) mmol/L Chloride 107 (98-107) mmol/L Carbon Dioxide 23 (21-32) mmol/L Anion Gap 10 (3-11) BUN 8 (6-23) mg/dl Creatinine 0.98 (0.6-1.2) mg/dl Est Cr Clr Drug Dosing 52.4 ml/min Est GFR ( Amer) 66.3 ml/min Est GFR (Non-Af Amer) 57.2 ml/min BUN/Creatinine Ratio 8.2 L (10-20) Glucose 98 (70-99(Fasting)) mg/dl POC Glucose 103 H (70-99) mg/dl Lactate (0.4-2.0) mmol/L Calcium 9.1 (8.5-10.1) mg/dl Magnesium 1.8 (1.7-2.4) mg/dl Total Bilirubin (0.2-1.0) mg/dl AST (13-39) U/L ALT (7-52) U/L Alkaline Phosphatase (34-104) U/L Troponin I High Sens (0-14) pg/ml Total Protein (6.0-8.3) gm/dl Albumin (3.4-5.0) gm/dl Globulin (2.5-4.0) gm/dl Albumin/Globulin Ratio (0.9-2) Lipase (11-82) U/L TSH (0.300-4.500) uIu/ml SARS-CoV-2, RNA, NAAT (NEGATIVE) 01/29/22 01/29/22 01/29/22 Range/Units 19:49 14:48 14:48 WBC (4.8-10.8) K/uL RBC (4.2-5.4) M/uL Hgb (12.0-16.0) g/dL Hct (37-47) % MCV (80-100) fL MCH (25-34) pg MCHC (32-36) g/dL RDW Std Deviation (36.4-46.3) fL RDW Coeff of Sari (11.5-14.5) % Plt Count (130-400) K/uL MPV (7.4-10.4) fL Immature Gran % (Auto) % Neut % (Auto) % Lymph % (Auto) % [place] % (Auto) % Eos % (Auto) % Baso % (Auto) % Neut # (Auto) (1.4-6.5) K/uL Lymph # (Auto) (1.2-3.4) K/uL [place] # (Auto) (0.11-0.59) K/uL Eos # (Auto) (0-0.5) K/uL Baso # (Auto) (0-0.2) K/uL Immature Gran # (Auto) (0.00-0.02) K/uL Sodium (136-145) mmol/L Potassium (3.5-5.1) mmol/L Chloride (98-107) mmol/L Carbon Dioxide (21-32) mmol/L Anion Gap (3-11) BUN (6-23) mg/dl Creatinine (0.6-1.2) mg/dl Est Cr Clr Drug Dosing ml/min Est GFR ( Amer) ml/min Est GFR (Non-Af Amer) ml/min BUN/Creatinine Ratio (10-20) Glucose (70-99(Fasting)) mg/dl POC Glucose (70-99) mg/dl Lactate 0.8 (0.4-2.0) mmol/L Calcium (8.5-10.1) mg/dl Magnesium (1.7-2.4) mg/dl Total Bilirubin (0.2-1.0) mg/dl AST (13-39) U/L ALT (7-52) U/L Alkaline Phosphatase (34-104) U/L Troponin I High Sens (0-14) pg/ml Total Protein (6.0-8.3) gm/dl Albumin (3.4-5.0) gm/dl Globulin (2.5-4.0) gm/dl Albumin/Globulin Ratio (0.9-2) Lipase (11-82) U/L TSH 0.778 (0.300-4.500) uIu/ml SARS-CoV-2, RNA, NAAT NEGATIVE (NEGATIVE) 01/29/22 01/29/22 Range/Units 14:48 14:48 WBC 5.20 (4.8-10.8) K/uL RBC 4.44 (4.2-5.4) M/uL Hgb 13.3 (12.0-16.0) g/dL Hct 39.9 (37-47) % MCV 89.9 (80-100) fL MCH 30.0 (25-34) pg MCHC 33.3 (32-36) g/dL RDW Std Deviation 47.3 H (36.4-46.3) fL RDW Coeff of Sari 14.3 (11.5-14.5) % Plt Count 206 (130-400) K/uL MPV 10.5 H (7.4-10.4) fL Immature Gran % (Auto) 0.2 % Neut % (Auto) 54.8 % Lymph % (Auto) 33.5 % [place] % (Auto) 9.2 % Eos % (Auto) 1.7 % Baso % (Auto) 0.6 % Neut # (Auto) 2.85 (1.4-6.5) K/uL Lymph # (Auto) 1.74 (1.2-3.4) K/uL [place] # (Auto) 0.48 (0.11-0.59) K/uL Eos # (Auto) 0.09 (0-0.5) K/uL Baso # (Auto) 0.03 (0-0.2) K/uL Immature Gran # (Auto) 0.01 (0.00-0.02) K/uL Sodium 140 (136-145) mmol/L Potassium 3.8 (3.5-5.1) mmol/L Chloride 105 (98-107) mmol/L Carbon Dioxide 25 (21-32) mmol/L Anion Gap 10 (3-11) BUN 11 (6-23) mg/dl Creatinine 1.01 (0.6-1.2) mg/dl Est Cr Clr Drug Dosing 50.9 ml/min Est GFR ( Amer) 64.0 ml/min Est GFR (Non-Af Amer) 55.2 ml/min BUN/Creatinine Ratio 10.9 (10-20) Glucose 96 (70-99(Fasting)) mg/dl POC Glucose (70-99) mg/dl Lactate (0.4-2.0) mmol/L Calcium 9.7 (8.5-10.1) mg/dl Magnesium 1.4 L (1.7-2.4) mg/dl Total Bilirubin 0.5 (0.2-1.0) mg/dl AST 18 (13-39) U/L ALT 11 (7-52) U/L Alkaline Phosphatase 65 (34-104) U/L Troponin I High Sens 4.0 (0-14) pg/ml Total Protein 6.9 (6.0-8.3) gm/dl Albumin 3.9 (3.4-5.0) gm/dl Globulin 3.0 (2.5-4.0) gm/dl Albumin/Globulin Ratio 1.3 (0.9-2) Lipase 54 (11-82) U/L TSH (0.300-4.500) uIu/ml SARS-CoV-2, RNA, NAAT (NEGATIVE) PG Care Time/CCT Total # of Minutes Spent Total Time Spent with Patient: Total time spent is greater than 50% in coordination of care (as documented) at patient's floor/unit and/or counseling patient: Coding Level of Care Code 75690 Subseq Hosp Care Lvl 3 Diagnoses Diverticulitis K57.92 Nausea & vomiting R11.2 Vomiting type: unspecified Abdominal pain R10.13 Abdominal location: epigastric Hypomagnesemia E83.42 Hypertension I10 Hypertension type: unspecified Hyperlipidemia E78.2 Hyperlipidemia type: mixed hyperlipidemia GERD (gastroesophageal reflux disease) K21.9 Esophagitis presence: esophagitis presence not specified Diabetes mellitus, type 2 E11.9 Anxiety F41.9 Left kidney mass N28.89 (1) Hyperlipidemia Hyperlipidemia type: mixed hyperlipidemia Qualified Code(s): E78.2 - Mixed hyperlipidemia (2) GERD (gastroesophageal reflux disease) Esophagitis presence: esophagitis presence not specified Qualified Code(s): K21.9 - Gastro-esophageal reflux disease without esophagitis (3) Nausea & vomiting Vomiting type: unspecified Qualified Code(s): R11.2 - Nausea with vomiting, unspecified (4) Abdominal pain Abdominal location: epigastric Qualified Code(s): R10.13 - Epigastric pain (5) Hypertension Hypertension type: unspecified Qualified Code(s): I10 - Essential (primary) hypertension
[2022-01-30] MEDS ORDERED: hydrALAZINE HCL 20 MG/ML VIAL IV PRN (08:46)
[2022-01-30] MEDS ORDERED: MAGNESIUM SULFATE / D5W 1 GM/100 ML BAG IV ONE (08:48)
[2022-01-30] MEDS: POTASSIUM CHLORIDE 10 MEQ in LACTATED RINGER'S 1,000 ML IV SCH (09:57)
[2022-01-30] MEDS: ACETAMINOPHEN 325 MG TAB PO PRN ×2 (15:58→22:16)
[2022-01-30] MEDS ORDERED: amLODIPine BESYLATE 5 MG TAB PO ONE (18:00)
[2022-01-31] MEDS: POTASSIUM CHLORIDE 10 MEQ in LACTATED RINGER'S 1,000 ML IV SCH (00:13)
[2022-01-31] MEDS: PIPERACILLIN/TAZOBACTAM 3.375 GM in DEXTROSE 5% 100 ML IV SCH ×2 (00:13→08:03)
[2022-01-31 06:47] LABS: Basophils # (auto) 0.02 K/uL (0-0.2); Basophils % (auto) 0.5 %; Eosinophils # (auto) 0.13 K/uL (0-0.5); Eosinophils % (auto) 3.2 %; Hematocrit (blood only) 36.7 % (37-47); Immature Granulocytes # (auto) 0.02 K/uL (0.00-0.02); Immature Granulocytes % (auto) 0.5 %; Lymphocytes % (auto) 41.9 %; Mean Corpuscular Hemoglobin 29.3 pg (25-34); Mean Corpuscular Hgb Conc 32.7 g/dL (32-36); Mean Corpuscular Volume 89.7 fL (80-100); Mean Platelet Volume 10.7 fL (7.4-10.4); Monocytes # (auto) 0.42 K/uL (0.11-0.59); Monocytes % (auto) 10.3 %; Neutrophils # (auto) 1.77 K/uL (1.4-6.5); Neutrophils % (auto) 43.6 %; Platelet Count 199 K/uL (130-400); RDW Coefficient of Variation 14.5 % (11.5-14.5); RDW Standard Deviation 47.4 fL (36.4-46.3); Red Blood Count 4.09 M/uL (4.2-5.4); White Blood Count 4.06 K/uL (4.8-10.8)
[2022-01-31 07:45] LABS: BUN Creatinine Ratio 6.2 (10-20); Calcium 8.9 mg/dl (8.5-10.1); Creatinine Clr Calc Pharmacy 53.4 ml/min; Est GFR (African American) 67.2 ml/min; Est GFR (Non-African American) 57.9 ml/min; Magnesium 1.8 mg/dl (1.7-2.4); Potassium 3.9 mmol/L (3.5-5.1)
[2022-01-31] MEDS: ATORVASTATIN 20 MG TAB PO SCH (08:04)
[2022-01-31] MEDS: PANTOprazole 40 MG TAB PO SCH (08:04)
[2022-01-31] MEDS: LOSARTAN POTASSIUM 25 MG TAB PO SCH (08:04)
[2022-01-31] MEDS: allopurinoL 100 MG TAB PO SCH (08:04)
[2022-01-31] MEDS: ENOXAPARIN INJ 40 MG/0.4 ML SYR SQ SCH (08:06)
--- NOTE | 2022-01-31 09:00 | Hospitalist Progress Note ---
Date of Service January 31, 2022 Assessment & Plan (1) Diverticulitis: Plan: Adelaide Gill is a 71yo female with PMHx significant for fibromyalgia, T2DM (A1c 6.2 in 02/2020), HLD, HTN, osteoarthritis and GERD who presented to [facility] ED on 01/29 for nausea and abdominal pain x1 week - mild sigmoid diverticulitis (uncomplicated) per imaging. Acute Sigmoid Diverticulitis Symptoms x1 week and not responsive to outpatient trial of Flagyl x5 days baker patricia not aqedquate treatment with Flagyl alone CT A/P showing acute uncomplicated sigmoid diverticulitis. Remains on Zosyn IVF -- added K, decreased to 100cc/hr. Will decrease to 80cc/hr as increasing PO intake Antiemetics/pain control prn No leukocytosis, afebrile Will advance to full liquid for this evening, low fiber planned for AM if tolerating well Monitor labs in AM Hypomagnesemia Mg 1.4, repleted with 2g IV in ED and mag 1.8 on repeat. Additional 1gm ordered to keep closer to 2 Monitor in AM Left Kidney Mass CT A/P showed incidental finding of 1.0 enhancing nodule on upper pole of left kidney. - recommend non-emergent Urology follow-up - can have follow up/referral with PCP HTN: continue Losartan and Toprol XL HLD: continue statin GERD: Protonix per hospital formulary T2DM: A1c 6.2 in 02/2020, repeat unchanged SSI while inpatient Monitor BSGs Dementia: very alert/oriented on examination. was at bedside as well as he stayed with her anxiety last evening continue Donepezil Chronic Constipation: hold Lactulose for now as patient has had daily BMs. PRN Miralax ordered. Gout: continue Allopurinol DVT Prophylaxis: Lovenox (2) Nausea & vomiting: Plan: no further vomiting nausea but improved, no need for medications currently but are available prn monitor (3) Abdominal pain: Plan: improving with tx as above (4) Hypomagnesemia: (5) Hypertension: (6) Hyperlipidemia: (7) GERD (gastroesophageal reflux disease): (8) Diabetes mellitus, type 2: (9) Anxiety: Plan: lorazepam available prn did have anxiety last evening reported, not given per review of medications (10) Left kidney mass: Admission and Anticipated Discharge Date Admission Date: January 29, 2022 Results & Data Results & Data ([facility]) Vital Signs (Past 12 Hours) Vital Signs Temp Pulse Pulse Resp BP Pulse Ox 01/31/22 07:00 36.7 C 79 20 142/83 H 98 01/31/22 03:28 36.5 C 74 18 133/83 92 01/30/22 23:12 36.4 C L 76 18 144/83 H 97 01/30/22 22:20 66 Laboratory Results 01/31/22 01/31/22 01/31/22 Range/Units 07:39 06:01 06:01 WBC 4.06 L (4.8-10.8) K/uL RBC 4.09 L (4.2-5.4) M/uL Hgb 12.0 (12.0-16.0) g/dL Hct 36.7 L (37-47) % MCV 89.7 (80-100) fL MCH 29.3 (25-34) pg MCHC 32.7 (32-36) g/dL RDW Std Deviation 47.4 H (36.4-46.3) fL RDW Coeff of Sari 14.5 (11.5-14.5) % Plt Count 199 (130-400) K/uL MPV 10.7 H (7.4-10.4) fL Immature Gran % (Auto) 0.5 % Neut % (Auto) 43.6 % Lymph % (Auto) 41.9 % Williamson % (Auto) 10.3 % Eos % (Auto) 3.2 % Baso % (Auto) 0.5 % Neut # (Auto) 1.77 (1.4-6.5) K/uL Lymph # (Auto) 1.70 (1.2-3.4) K/uL Williamson # (Auto) 0.42 (0.11-0.59) K/uL Eos # (Auto) 0.13 (0-0.5) K/uL Baso # (Auto) 0.02 (0-0.2) K/uL Immature Gran # (Auto) 0.02 (0.00-0.02) K/uL Sodium 141 (136-145) mmol/L Potassium 3.9 (3.5-5.1) mmol/L Chloride 108 H (98-107) mmol/L Carbon Dioxide 27 (21-32) mmol/L Anion Gap 6 (3-11) BUN 6 (6-23) mg/dl Creatinine 0.97 (0.6-1.2) mg/dl Est Cr Clr Drug Dosing 53.4 ml/min Est GFR ( Amer) 67.2 ml/min Est GFR (Non-Af Amer) 57.9 ml/min BUN/Creatinine Ratio 6.2 L (10-20) Glucose 90 (70-99(Fasting)) mg/dl POC Glucose 96 (70-99) mg/dl Calcium 8.9 (8.5-10.1) mg/dl Magnesium 1.8 (1.7-2.4) mg/dl Vitamin B12 (180-914) pg/ml 01/31/22 01/30/22 01/30/22 Range/Units 06:01 20:30 16:37 WBC (4.8-10.8) K/uL RBC (4.2-5.4) M/uL Hgb (12.0-16.0) g/dL Hct (37-47) % MCV (80-100) fL MCH (25-34) pg MCHC (32-36) g/dL RDW Std Deviation (36.4-46.3) fL RDW Coeff of Sari (11.5-14.5) % Plt Count (130-400) K/uL MPV (7.4-10.4) fL Immature Gran % (Auto) % Neut % (Auto) % Lymph % (Auto) % Williamson % (Auto) % Eos % (Auto) % Baso % (Auto) % Neut # (Auto) (1.4-6.5) K/uL Lymph # (Auto) (1.2-3.4) K/uL Williamson # (Auto) (0.11-0.59) K/uL Eos # (Auto) (0-0.5) K/uL Baso # (Auto) (0-0.2) K/uL Immature Gran # (Auto) (0.00-0.02) K/uL Sodium (136-145) mmol/L Potassium (3.5-5.1) mmol/L Chloride (98-107) mmol/L Carbon Dioxide (21-32) mmol/L Anion Gap (3-11) BUN (6-23) mg/dl Creatinine (0.6-1.2) mg/dl Est Cr Clr Drug Dosing ml/min Est GFR ( Amer) ml/min Est GFR (Non-Af Amer) ml/min BUN/Creatinine Ratio (10-20) Glucose (70-99(Fasting)) mg/dl POC Glucose 99 88 (70-99) mg/dl Calcium (8.5-10.1) mg/dl Magnesium (1.7-2.4) mg/dl Vitamin B12 1011 H (180-914) pg/ml 01/30/22 Range/Units 11:46 WBC (4.8-10.8) K/uL RBC (4.2-5.4) M/uL Hgb (12.0-16.0) g/dL Hct (37-47) % MCV (80-100) fL MCH (25-34) pg MCHC (32-36) g/dL RDW Std Deviation (36.4-46.3) fL RDW Coeff of Srai (11.5-14.5) % Plt Count (130-400) K/uL MPV (7.4-10.4) fL Immature Gran % (Auto) % Neut % (Auto) % Lymph % (Auto) % Williamson % (Auto) % Eos % (Auto) % Baso % (Auto) % Neut # (Auto) (1.4-6.5) K/uL Lymph # (Auto) (1.2-3.4) K/uL Williamson # (Auto) (0.11-0.59) K/uL Eos # (Auto) (0-0.5) K/uL Baso # (Auto) (0-0.2) K/uL Immature Gran # (Auto) (0.00-0.02) K/uL Sodium (136-145) mmol/L Potassium (3.5-5.1) mmol/L Chloride (98-107) mmol/L Carbon Dioxide (21-32) mmol/L Anion Gap (3-11) BUN (6-23) mg/dl Creatinine (0.6-1.2) mg/dl Est Cr Clr Drug Dosing ml/min Est GFR ( Amer) ml/min Est GFR (Non-Af Amer) ml/min BUN/Creatinine Ratio (10-20) Glucose (70-99(Fasting)) mg/dl POC Glucose 104 H (70-99) mg/dl Calcium (8.5-10.1) mg/dl Magnesium (1.7-2.4) mg/dl Vitamin B12 (180-914) pg/ml PG Care Time/CCT Total # of Minutes Spent Total Time Spent with Patient: Total time spent is greater than 50% in coordination of care (as documented) at patient's floor/unit and/or counseling patient: Coding Diagnoses Diverticulitis K57.92 Nausea & vomiting R11.2 Vomiting type: unspecified Abdominal pain R10.13 Abdominal location: epigastric Hypomagnesemia E83.42 Hypertension I10 Hypertension type: unspecified Hyperlipidemia E78.2 Hyperlipidemia type: mixed hyperlipidemia GERD (gastroesophageal reflux disease) K21.9 Esophagitis presence: esophagitis presence not specified Diabetes mellitus, type 2 E11.9 Anxiety F41.9 Left kidney mass N28.89 (1) Hyperlipidemia Hyperlipidemia type: mixed hyperlipidemia Qualified Code(s): E78.2 - Mixed hyperlipidemia (2) GERD (gastroesophageal reflux disease) Esophagitis presence: esophagitis presence not specified Qualified Code(s): K21.9 - Gastro-esophageal reflux disease without esophagitis (3) Nausea & vomiting Vomiting type: unspecified Qualified Code(s): R11.2 - Nausea with vomiting, unspecified (4) Abdominal pain Abdominal location: epigastric Qualified Code(s): R10.13 - Epigastric pain (5) Hypertension Hypertension type: unspecified Qualified Code(s): I10 - Essential (primary) hypertension
[2022-01-31] MEDS: INSULIN ASPART PER UNIT SC SCH ×3 (09:04→17:12)
[2022-01-31] MEDS: METOPROLOL SUCC 50MG EXT REL TAB PO SCH (09:05)
--- NOTE | 2022-01-31 11:24 | Discharge Summary ---
Date of Service January 31, 2022 Admission HPI Per Admitting Provider Adelaide Gill is a 71yo female with PMHx significant for fibromyalgia, T2DM (A1c 6.2 in 02/2020), HLD, HTN, osteoarthritis and GERD who presented to [facility] ED on 01/29 for GI illness. Patient reports that she was started on a new medication for depression ~1 week ago and started to have nausea and abdominal pain. She stopped taking the medication after several days but symptoms persisted so she spoke with her PCP who prescribed her Zofran PRN and scheduled Flagyl ~5 days ago for presumed GI infection. Symptoms have persisted and patient has had difficulty tolerating any PO intake including fluids. Denies fever/chills. In the ED the patient was mildly hypertensive but otherwise hemodynamically stable. Labs significant for Mg 1.4 but otherwise within normal limits - no leukocytosis and lipase WNL. Lactate 0.8. CXR showing mild cardiomegaly but no active cardiopulmonary disease. CT A/P showing mild sigmoid diverticulitis without evidence for free air/perforation or abscess. (Also CT A/P showed incidental finding of 1.0 enhancing nodule on upper pole of left kidney that requires non-emergent Urology follow-up.) In the ED patient received 1.5L NSS boluses, Compazine/Pepcid/Zofran/Maalox for N/V, Mg 2g IV, Tylenol 1g IV x1. Also was started on Zosyn. Admission Exam Per Admitting Provider General: A&Ox3. NAD. Cooperative. HEENT: Atraumatic, normocephalic. Pulm: CTAB A&P. -wheezes, -rales, -rhonchi. Symmetrical chest rise. No increase work of breathing. No respiratory distress. Cardiac: RRR, -mrg. Radial pulses intact and symmetrical.No LE edema. Abdominal: soft, non-tender, non-distended, BS x 4 Skin: warm, dry, no rash Principal Diagnosis Diverticulitis Discharge Exam General: WD, WN female walking back to bed from restroom, NAD HEENT: head normocephalic, atraumatic, mmm, trachea midline without deviation Resp: CTAB, no w/c/r, on room air CV: RRR, no m/r/g, no edema, cap refill wnl GI: +BS, soft, non-tender ,no rebound/guarding : no starks MSK/Neuro: follows commands, moves all extremities, CN intact grossly, no focal deficit Psych: AOx3, pleasant and cooperative Discharge Data Allergies Allergy/AdvReac Type Severity Reaction Status Date / Time No Known Allergies Allergy Verified 01/29/22 15:19 Consultations 01/29/22 18:56 ED Decision to Admit Stat Ordered Studies Abdomen/Pelvis CT 01/29/22 14:24 CT SCAN OF THE ABDOMEN AND PELVIS WITH IV CONTRAST CLINICAL HISTORY: Generalized abdominal pain. Nausea. COMPARISON STUDY: Abdominal CT dated 02/21/2020. TECHNIQUE: Following the IV administration of 92 cc of Optiray 320, CT scan of the abdomen and pelvis is performed from the lung bases to the proximal femora. Images are reviewed in the axial, sagittal, and coronal planes. IV contrast was administered without complication. A dose lowering technique was utilized adhering to the principles of ALARA. The Examination is degraded by streak artifact from extensive metallic spinal hardware. CT DOSE: 694.49 mGy.cm FINDINGS: Lung bases: The heart is normal in size and without pericardial effusion. The lung bases are clear noting bibasilar scarring/atelectasis. Liver: The contrast-enhanced liver is normal in size, contour, and attenuation. There is no intrahepatic biliary ductal dilatation. The hepatic veins and portal veins are patent. Gallbladder: Unremarkable. Spleen: Normal in size and attenuation. Pancreas: Unremarkable. Adrenal glands: Unremarkable. Kidneys: The contrast enhanced kidneys demonstrate mild cortical atrophy and are without hydronephrosis. The kidneys enhance symmetrically. Cortical scarring is noted in the interpolar left kidney. A 1.0 cm enhancing lesion is suggested in the upper pole of the left kidney on image #97. Abdominal vasculature: The abdominal aorta is normal in course and caliber noting moderate to advanced atherosclerotic calcification. Bowel: There is mild to moderate sigmoid diverticulosis. There is wall thickening with pericolonic inflammation involving the sigmoid seen on image #295 consistent with mild acute diverticulitis. No organized fluid collection is seen to suggest abscess. There is no bowel obstruction. The appendix is well-vi sualized and normal. A 1.6 cm metallic foreign body versus surgical clip is noted in the cecum on image #216. Peritoneum: There is no intraperitoneal free air or abdominal ascites. There is a fat-containing umbilical hernia. Lymphadenopathy: None. Pelvic viscera: The bladder is normal as visualized. The uterus is surgically absent. Tiny simple cystic foci are again seen in both ovaries and measure up to 13 mm. Skeletal structures: The skeletal structures are osteopenic. There is lumbosacral spondylosis with postoperative change from laminectomy and posterior fusion seen from L2-S1. No lytic or blastic lesions are seen. IMPRESSION: 1. Mild acute diverticulitis of the sigmoid colon. 2. No intraperitoneal free air is identified and there is no organized fluid collection to suggest abscess. 3. There is a 1.0 cm enhancing nodule suggested in the upper pole of the left kidney. Nonemergent follow-up with urology is recommended. 4. There is an intraluminal metallic foreign body versus surgical clip identified in the cecum. 5. Additional findings as above. ACT 112: Negative or not required by law. Electronically signed by: Rolando Griggs M.D. 01/29/2022 4:21 PM Chest X-Ray 01/29/22 17:24 SINGLE VIEW CHEST CLINICAL HISTORY: Vomiting FINDINGS: An AP, portable, upright chest radiograph is compared to chest x-ray and chest CT dated 12/21/2021. The heart is mildly enlarged noting atherosclerotic calcification of the thoracic aorta. The pulmonary vasculature is noncongested. Chronic residual thickening is similar to previous. Atelectasis is noted at the lung bases. The lungs and pleural spaces are otherwise clear. No pneumothorax is seen. The skeletal structures are osteopenic. The bony thorax is grossly intact. Degenerative change is noted in the shoulders. IMPRESSION: Mild cardiomegaly with no active disease in the chest. ACT 112: Negative or not required by law. Electronically signed by: Rolando Griggs M.D. 01/29/2022 6:00 PM Hospital Course (1) Diverticulitis: Adelaide Gill is a 71yo female with PMHx significant for fibromyalgia, T2DM (A1c 6.2 in 02/2020), HLD, HTN, osteoarthritis and GERD who presented to [facility] ED on 01/29 for nausea and abdominal pain x1 week - mild sigmoid diverticulitis (uncomplicated) per imaging. Acute Sigmoid Diverticulitis Symptoms x1 week and not responsive to outpatient trial of Flagyl x5 days however not adequate treatment with Flagyl alone CT A/P showing acute uncomplicated sigmoid diverticulitis. intraluminal metallic foreign body versus surgical clip identified in the cecum -- recent c-scope Oct, report with hemostatic clip placed in cecum at that time. ZOsyn IV while inpatient--> transitioned to Augmentin to complete course IVF/Antiemtics provided Tolerating full liquid diet, but having some diarrhea -- reported 4 BM in morning, 2 following lunch. Order for cdiff placed, however patient without further BMs this evening and felt stable for discharge If continued diarrhea, need to check outpatient but suspect liquid BM as previously not having and chronic constipation and then subsequent diarrhea w/ liquid diet/abx No increased abdominal pain To continue full liquid x 2-3 days, then advance to low fiber Instructed to follow up with PCP/GI (follows Dr Brandee [facility]) for repeat scope outpatient following --> of note, intraluminal clip noted in cecum on CTAP on admission Contacted GI office for c-scope report (done in Oct 2021) and had multiple polyps removed but did note small sessile polyp in cecum and was removed and to prevent bleeding after polypectomy, hemostatic clip successfully placed. Remained afebrile WBC wnl Hypomagnesemia Repeated/replaced. Normal on repeat. Left Kidney Mass CT A/P showed incidental finding of 1.0 enhancing nodule on upper pole of left kidney. - recommend non-emergent Urology follow-up - can have follow up/referral with PCP HTN: BP stable, anxiety some during hospitalization continued Losartan and Toprol XL HLD: continued statin GERD: Protonix per hospital formulary T2DM: A1c 6.2 in 02/2020, repeat unchanged SSI while inpatient Monitor BSGs Dementia: very alert/oriented on examination continued Donepezil Chronic Constipation: held Lactulose for now as patient has had daily BMs. PRN Miralax ordered. Had episode of diarrhea 4 x in AM/2x after lunch but then no further BM/increased discomfort and not ableto collect cdiff sample if continued issues outpatient on abx, rec testing Gout: continued Allopurinol DVT Prophylaxis: Lovenox SQ while inpatient (2) Nausea & vomiting: (3) Abdominal pain: (4) Hypomagnesemia: (5) Hypertension: (6) Hyperlipidemia: (7) GERD (gastroesophageal reflux disease): (8) Diabetes mellitus, type 2: (9) Anxiety: (10) Left kidney mass: need outpt f/u Total Time Total Time Spent Total Time Spent (In Minutes): 60 Discharge Plan Discharge Items Patient Disposition: Home - Self-Care Reason For Visit: NAUSEOUS, VOMITTING, LIGHTHEADED Discharge Diagnosis: Diverticulitis Condition on Discharge: Good Goals: You have been hospitalized for an acute medical problem. During your stay at [facility], we have made an effort to correct the problem that brought you to the hospital while keeping you as comfortable as possible. Medications were used to bring your condition under control and your discharge instructions will include directions for any medications you should take after leaving the hospital. Please make sure you see your Primary Care Provider as part of your follow up plan. Activity: Resume your previous activity Non-emergency contact: Primary Care Provider and Preparation Supervisor Call non-emergency contact if: you have any medication questions, your symptoms worsen, your pain is not controlled and you have a fever Follow-up/Referrals: Jose Irvin, [Outside Practitioners] - Justino Tovar, [Primary Care Provider] - (PLEASE CALL YOUR PRIMARY CARE PROVIDER TO SCHEDULE A DISCHARGE FOLLOW-UP APPOINTMENT WITHIN 7-10 DAYS.) Diet: Full liquid and Low Fiber Diet Comment: advance to low fiber in next 3 days Addtl Attending Provider Instructions: You have been hospitalized for diverticulitis likely not adequately treated with the Flagyl alone as an outpatient. Thankfully this is uncomplicated case and you have been provided IV hydration and bowel rest, and have tolerated advancement of your diet. You should continue the full liquid for an additional 2-3 days and then can advance to a low fiber diet. You have been sent a prescription to continue antibiotics with Augmentin to complete the course. You should follow up with your PCP/Dr Baer at [facility] with regards to colonoscopy in 6-8 weeks following a bout of diverticulitis. You should follow up with your PCP in the next 7-10 days to monitor your progres s. There was an incidental nodule on one of your kidneys that will need non- urgent follow-up and can have referral to urology. Please return the the closest ER if you have any worsening abdominal pain, inability to keep up with oral hydration, fever, >10x/diarrhea a day, or for any other symptoms concerning for you. Take care! Pending Studies at Discharge: No Stand-Alone Forms: My [facility] Medications and DC Order Prescriptions: New amoxicillin-pot clavulanate 875-125 mg tablet 1 tab PO BID 8 Days Qty: 16 RF: 0 Continued metoprolol succinate 50 mg capsule,sprinkle,ER 24hr 50 mg PO DAILY RF: 0 omeprazole 40 mg capsule,delayed release(DR/EC) 40 mg PO DAILY RF: 0 atorvastatin 20 mg tablet 20 mg PO DAILY RF: 0 aspirin 81 mg tablet,delayed release (DR/EC) 81 mg PO HS RF: 0 lorazepam 0.5 mg tablet 0.5 mg PO DAILY PRN (Reason: Anxiety) RF: 0 donepezil 5 mg tablet 5 mg PO HS RF: 0 allopurinol 100 mg tablet 100 mg PO DAILY RF: 0 zolpidem 10 mg tablet 10 mg PO HS RF: 0 losartan 25 mg Tablet 25 mg PO QAM Qty: 30 RF: 0 ondansetron HCl 8 mg tablet 8 mg PO BID RF: 0 lactulose 10 gram/15 mL Solution 15 ml PO BID RF: 0 Discontinued metronidazole 500 mg tablet 500 mg PO TID RF: 0 Discharge Orders: Discharge Order (Routine); Ordered 01/31/22 Ordered By: Megan Rivas/Other Patient Handouts: Managing Type 2 Diabetes Admission Data Admit Date/Time: 01/29/22 20:20 Attending Provider: Kinga Bundy Admit Provider: Krzysztof Reynaga Primary Care Provider: Justino Tovar Other Providers: Collin Seymour Other Interventions: Discharge Summary Assessment (RN) Last Done: 01/31/22 17:43 Supervising Physician Co-Signing Physician Notes PA Supervision Note: I personally saw and examined the patient. I verified all richmond points and agree with TYLER Talbot with the following exceptions and/or additions: S-Pt having some loose stools today but has been eating liquids only. Tried to get a C. diff stool sample prior to dc but she was not able to have any ore BMs. Denies abd pain, no nausea, is eating well, afebrile. O- Vitals reviewed Gen: [AAOx3, NAD] HEENT: [anicteric sclerae, EOMI] CV: [RRR no mgr nl S1S2] Pulm: [CTAB no wcr] Abd: [+BS soft, very mil d+TTP in LLQ w/o guarding or rebound, ND no masses or hernias] Ext: [no edema, 2+ DP pulses] Skin: [no rashes, warm/dry] Neuro: [full strength throughout] A/P-71 yo female here with acute diverticulitis, uncomplicated. Improved with IV abx, IVFs, bowel rest. Now tolerating liquids and can go home, adv diet to low fiber at home continue Augmentin upon discharge colonoscopy to be considered as outpt in 6 weeks although she jsut had one a month ago--> f/u with her GI Coding Level of Care Code D/C DAY MANAGEMENT >30 MINS Diagnoses Diverticulitis K57.92 Nausea & vomiting R11.2 Vomiting type: unspecified Abdominal pain R10.13 Abdominal location: epigastric Hypomagnesemia E83.42 Hypertension I10 Hypertension type: unspecified Hyperlipidemia E78.2 Hyperlipidemia type: mixed hyperlipidemia GERD (gastroesophageal reflux disease) K21.9 Esophagitis presence: esophagitis presence not specified Diabetes mellitus, type 2 E11.9 Anxiety F41.9 Left kidney mass N28.89
[2022-01-31] MEDS ORDERED: AMOXICILLIN/CLAVULANATE 875 MG TAB PO SCH (17:00)
[2022-01-31] MEDS: ACETAMINOPHEN 325 MG TAB PO PRN (17:16)
== END 2022-01-31 18:17 | disposition home or self-care (01) | DRG 392 ==
LOC: ED 13:27 → SUATTDRO 20:20 → EDINP 20:20 → 2N 01-30 14:03

== ENCOUNTER 2022-09-25 08:18 | Observation (INO) ==
--- NOTE | 2022-09-04 14:59 | PAT Medication Instructions ---
Medication Instructions Date of Service September 04, 2022 Home Medications Medication Instructions Recorded losartan 25 mg tablet 25 mg PO QAM #30 tabs 12/22/21 mirabegron 25 mg tablet,extended 25 mg PO DAILY #30 tabs 08/07/22 release 24 hr aspirin 81 mg tablet,delayed release 81 mg PO HS atorvastatin 20 mg tablet 20 mg PO HS metoprolol succinate 50 mg capsule sprinkle, ext. release 24 hr 50 mg PO QAM omeprazole 40 mg capsule,delayed release 40 mg PO QAM lorazepam 0.5 mg tablet 0.5 mg PO DAILY PRN Anxiety allopurinol 100 mg tablet 100 mg PO QAM zolpidem 10 mg tablet 10 mg PO HS losartan 25 mg tablet 25 mg PO QAM mirabegron 25 mg tablet,extended release 24 hr 25 mg PO DAILY celecoxib 200 mg capsule (Celebrex) 200 mg PO QAM cholecalciferol (vitamin D3) 50 mcg (2,000 unit) capsule (Vitamin D3) 50 mcg PO HS cyclobenzaprine 10 mg tablet 10 mg PO TID PRN MUSCLE SPASMS donepezil 10 mg tablet 10 mg PO HS magnesium oxide 400 mg PO HS sennosides 8.6 mg tablet (senna) 8.6 mg PO BID PRN Constipation ASK your surgeon for instructions celecoxib 200 mg capsule (Celebrex) 200 mg PO QAM ASK your prescriber and surgeon aspirin 81 mg tablet,delayed release 81 mg PO HS DO NOT take the morning of surgery losartan 25 mg tablet 25 mg PO QAM mirabegron 25 mg tablet,extended release 24 hr 25 mg PO DAILY cyclobenzaprine 10 mg tablet 10 mg PO TID PRN MUSCLE SPASMS sennosides 8.6 mg tablet (senna) 8.6 mg PO BID PRN Constipation Take morning of surgery With a small sip of water, OTHERWISE NOTHING TO EAT OR DRINK AFTER MIDNIGHT: metoprolol succinate 50 mg capsule sprinkle, ext. release 24 hr 50 mg PO QAM omeprazole 40 mg capsule,delayed release 40 mg PO QAM lorazepam 0.5 mg tablet 0.5 mg PO DAILY PRN Anxiety (if needed) allopurinol 100 mg tablet 100 mg PO QAM Take evening before surgery atorvastatin 20 mg tablet 20 mg PO HS lorazepam 0.5 mg tablet 0.5 mg PO DAILY PRN Anxiety (if needed) zolpidem 10 mg tablet 10 mg PO HS cholecalciferol (vitamin D3) 50 mcg (2,000 unit) capsule (Vitamin D3) 50 mcg PO HS cyclobenzaprine 10 mg tablet 10 mg PO TID PRN MUSCLE SPASMS (if needed) donepezil 10 mg tablet 10 mg PO HS magnesium oxide 400 mg PO HS sennosides 8.6 mg tablet (senna) 8.6 mg PO BID PRN Constipation (if needed) Other Notes If you have any questions please call us at [phone] or [phone] or [phone] or [phone]
--- NOTE | 2022-09-11 13:29 | Anesthesiology Consultation ---
Date of Service September 11, 2022 Assessment & Plan (1) Encounter for pre-operative examination: - check BSG am DOS. Chart Review Chart Review: Acceptable Risk for Surgery and Patient seen in Pre Admission Testing Teaching & Discussion Pre-Anesthesia Teaching/Discussion Notes: Instructed NPO after midnight before surgery, except medications with 15 cc of water. Medication instructions provided according to the PAT guidelines. History Surgery Operation Date: 09/25/22 10:05 Proposed Procedures p L1-L2 Decompression, T11-L2 Fusion, with Spinal Cord Monitoring - Justino Machado DO Height/Weight Height: 5 ft 2 in Weight: 88.451 kg Allergies Allergy/AdvReac Type Severity Reaction Status Date / Time prednisone AdvReac Intermediate increased Verified 09/04/22 08:59 blood pressure Medications Home Medications Medication Instructions Recorded Confirmed Last Taken aspirin 81 mg tablet,delayed 81 mg PO HS 10/27/19 09/04/22 01/28/22 release atorvastatin 20 mg tablet 20 mg PO HS 10/27/19 09/04/22 01/29/22 metoprolol succinate 50 mg capsule 50 mg PO QAM 10/27/19 09/04/22 01/29/22 sprinkle, ext. release 24 hr omeprazole 40 mg capsule,delayed 40 mg PO QAM 10/27/19 09/04/22 01/29/22 release lorazepam 0.5 mg tablet 0.5 mg PO DAILY PRN Anxiety 04/05/20 09/04/22 01/29/22 allopurinol 100 mg tablet 100 mg PO QAM 12/21/21 09/04/22 01/29/22 zolpidem 10 mg tablet 10 mg PO HS 12/21/21 09/04/22 01/28/22 losartan 25 mg tablet 25 mg PO QAM #30 tabs 12/22/21 09/04/22 01/29/22 mirabegron 25 mg tablet,extended 25 mg PO DAILY #30 tabs 08/07/22 09/04/22 Unknown release 24 hr celecoxib 200 mg capsule (Celebrex) 200 mg PO QAM 09/04/22 09/04/22 Unknown cholecalciferol (vitamin D3) 50 50 mcg PO HS 09/04/22 09/04/22 Unknown mcg (2,000 unit) capsule (Vitamin D3) cyclobenzaprine 10 mg tablet 10 mg PO TID PRN MUSCLE SPASMS 09/04/22 09/04/22 Unknown donepezil 10 mg tablet 10 mg PO HS 09/04/22 09/04/22 Unknown magnesium oxide 400 mg PO HS 09/04/22 09/04/22 Unknown sennosides 8.6 mg tablet (senna) 8.6 mg PO BID PRN Constipation 09/04/22 09/04/22 Unknown Past Medical History Medical History (Updated 09/11/22 @ 13:43 by Erin Pham PA-C) Chronic low back pain Diabetes mellitus, type 2 DIET CONTROLLED GERD (gastroesophageal reflux disease) controlled, stable per pt History of anxiety History of blood transfusion History of COVID-19 X 2 *LAST TIME MARCH 2022>A LINGERING COUGH FROM TIME TO TIME SINCE LAST DX History of depression History of kidney stones Hyperlipidemia Hypertension controlled, stable per pt Lumbar radicular pain Nodule of kidney CT SCAN YEARLY TO EVALUATE SIZE/GROWTH Peripheral neuropathy hands and feet Prolapsed bladder Urinary urgency Patient denies h/o stroke, seizures, heart attack, heart failure, or blood nadeen ts. Exercise / Class Metabolic Activity III < 4 Walking/Shop/Light housework (denies chest discomfort or shortness of breath with usual activities) Past Family History Family History (Updated 09/04/22 @ 09:16 by Ines Platt RN) Other No family history of adverse response to anesthesia No pertinent family history Past Surgical History Surgical History (Updated 09/04/22 @ 09:24 by Ines Platt RN) H/O cardiac radiofrequency ablation TACHYCARDIA TX>OVER 15 YEARS AGO (NO CURRENT CARDS) H/O rotator cuff surgery RT H/O: hysterectomy History of colonoscopy History of cystoscopy KIDNEY STONE REMOVAL History of surgery TEMPORARY SPINAL CORD STIMULATOR IMPLANTED *PULLED OUT/NOT CURRENLTY INTACT History of tonsillectomy Previous back surgery L2-S1 posterior fusion (03/2016) [place] teeth removed Past Anesthesia History No Hx of Anesthesia Complications and No Family Hx of Anesthesia Complications History of PONV No Hx of PONV and No Hx of Motion Sickness Social History Smoking Status: Never smoker Do You Dip or Chew Tobacco: No Hx Alcohol Use: No Hx Substance Use: No substance use type: does not use Review of Systems Snoring, denies witnessed apneas. Patient denies chest pain, shortness of breath, dyspnea on exertion, fever, chills, cough, wheezing, or palpitations. Physical Exam Vital Signs Vitals BP 139/93 P 68 TEMP 98.1 SP02 97% on RA RESP 18 Physical Full cervical extension range of motion without pain TMD 3.5 finger breadths Mallampati Score 2 Dentition: several crowns; denies chipped or loose teeth, caps, implants or bridges Lungs: normal respiratory effort. Clear throughout to auscultation, no adventitious breath sounds Cardiac: regular rate and rhythm, no murmurs noted Carotid arteries: negative bruit bilat Lab Results Anesthesia Preop Results Results Anesthesia Widget: WBC 5.73 K/ul (4.8-10.8) 09/11/22 Hgb 14.2 g/dl (12.0-16.0) 09/11/22 Hct 44.2 % (34.1-44.9) 09/11/22 Plt 223 K/uL (130-400) 09/11/22 Na 138 mmol/L (136-145) 09/11/22 K 4.5 mmol/L (3.5-5.1) 09/11/22 Cl 104 mmol/L (98-107) 09/11/22 CO2 28 mmol/L (21-32) 09/11/22 BUN 23 mg/dl (6-23) 09/11/22 Creat 1.06 mg/dl (0.6-1.2) 09/11/22 Glucose Level 91 mg/dl (70-99(Fasting)) 09/11/22 PT 11.4 Seconds (9.0-12.0) 09/11/22 PTT 27.9 Seconds (21.0-31.0) 09/11/22 INR 1.1 (0.9-1.1) 09/11/22 HA1c 6.2 % (4.5-5.6) H 09/11/22 Urine Color Yellow 09/11/22 Urine Appearance Clear (Clear) 09/11/22 Urine pH 5.5 (4.5-7.5) 09/11/22 Urine Specific [place] 1.013 (1.000-1.030) 09/11/22 Urine Protein Negative (Negative) 09/11/22 Urine Glucose (UA) Negative (Negative) 09/11/22 Urine Ketones Negative (Negative) 09/11/22 Urine Blood Negative (Negative) 09/11/22 Urine Nitrite Negative (Negative) 09/11/22 Urine Bilirubin Negative (Negative) 09/11/22 Urine Urobilinogen Negative (Negative) 09/11/22 Urine Leukocyte Esterase Trace (Negative) H 09/11/22 Urine WBC (Auto) 1-5 /hpf (0-5) 09/11/22 Urine RBC (Auto) 0-4 /hpf (0-4) 09/11/22 Urine Hyaline Casts (Auto) 1-5 /lpf (0-5) 09/11/22 Urine Epithelial Cells (Auto) >30 /lpf (0-5) H 09/11/22 Urine Bacteria (Auto) Negative (Negative) 09/11/22 Blood Type O Positive 09/11/22 Antibody Screen NEGATIVE 09/11/22 Testing Electrocardiogram Date: 01/29/22 NSR, rate 65 bpm Chest X-Ray Date: 09/11/22 The cardiomediastinal silhouette is unremarkable noting atherosclerotic calcification of the thoracic aorta. The lungs and pleural spaces are clear noting mild bibasilar atelectasis. There is no pneumothorax. The skeletal structures are osteopenic. The bony thorax appears intact. Fusion hardware is n oted in the lumbar spine. IMPRESSION: No active disease in the chest. Other Testing Abdomen pelvis CT 08/02/22 Lower chest: Bibasilar atelectasis versus scarring is seen. Spleen: Splenule is incidentally noted. Kidneys and ureters: Renal cortical scarring is seen. In the site of the previously noted left renal lesion, there is a poorly visualized 7 mm superior pole focus. Subcentimeter hypodensities are seen bilaterally. Reproductive organs: A right ovarian cyst is noted. Bowel: Diverticulosis is seen without evidence of diverticulitis. Appendix is normal. There is a small hiatal hernia. Lymph nodes Retroperitoneal: Subcentimeter lymph nodes are noted. Vessels: Atherosclerotic calcifications are seen. Abdominal wall: A fat-containing umbilical hernia is seen. Bones: Degenerative changes and posterior fixation hardware are seen. IMPRESSION: 1. Previously noted possible enhancing left upper pole renal lesion is suggested to be similar in appearance. If further follow-up is desired, CT or MRI renal mass protocol or ultrasound can be performed. 2. Additional findings as above. COVID-19 Risk Screen Screening Information COVID-19 Screen Date: 09/11/22 Exposure 21 Days Family/Household +COVID Last 21 Days: No Exposure 10 Days Any COVID Exposure Last 10 Days: No Symptoms Last 10 Days Experienced COVID Sx Last 10 Days: No + COVID 0-90 Days COVID + in Last 0-90 Days: No
[~2022-09-25 08:18] MED LIST: ACETAMINOPHEN 500 MG TAB PO SCH; CeleBREX 200 MG CAP PO SCH; GABAPENTIN 300 MG CAP PO SCH; LR 15ML/HR IV SCH; SUGAMMADEX SODIUM 200 MG/2 ML VIAL IV ONE; ceFAZolin 2000MG 2,000 MG/15 ML SYR IV SCH
[2022-09-25] MEDS ORDERED: ROCURONIUM BROMIDE 10 MG/ML 5 ML VIAL IV ONE ×4 (08:19→10:42)
[2022-09-25] MEDS ORDERED: PROPOFOL IV EMULSION 10 MG/ML 20 ML VIAL IV ONE (08:19)
[2022-09-25] MEDS ORDERED: ONDANSETRON INJ 2 MG/ML 2 ML VIAL ONE (08:19)
[2022-09-25] MEDS ORDERED: GLYCOPYRROLATE 0.2 MG/ML VIAL ONE (08:19)
[2022-09-25] MEDS ORDERED: fentaNYL citrate 100 MCG/2 ML VIAL ONE ×2 (08:20→10:44)
[2022-09-25] MEDS ORDERED: MIDAZOLAM HCL 1 MG/ML 2ML VIAL ONE (08:20)
[2022-09-25] MEDS ORDERED: DEXAMETHASONE SOD INJ 4 MG/ML VIAL ONE (08:37)
--- NOTE | 2022-09-25 09:46 | History & Physical Bridge Note ---
Date of Service September 25, 2022 History & Physical Bridge Note I have examined the patient, reviewed the History & Physical and in the interval since the performance of the History & Physical I have noted the following changes of clinical significance: no changes noted
[2022-09-25] MEDS ORDERED: BUPIVACAINE/EPINEPHRINE 0.5% MPF 1:200,000 30 ML VIAL ONE (09:48)
[2022-09-25] MEDS ORDERED: ceFAZolin 330 MG/ML 1 GM VIAL ONE (09:48)
--- NOTE | 2022-09-25 09:48 | History & Physical Report ---
Date of Service September 25, 2022 Assessment & Plan (1) Postlaminectomy syndrome of lumbosacral region: Plan: L1-L2 decompression, T11-L2 fusion History of Present Illness Chief Complaint: Back and leg pain Primary Care Provider: Justino Tovar DO 72-year-old female presents to clinic persistent back and leg pain after failing course of nonoperative care she is here for surgical invention. Allergies Allergy/AdvReac Type Severity Reaction Status Date / Time prednisone AdvReac Intermediate increased Verified 09/25/22 09:02 blood pressure Home Medications Medication Instructions Recorded Confirmed Type aspirin 81 mg tablet,delayed 81 mg PO HS 10/27/19 09/25/22 History release atorvastatin 20 mg tablet 20 mg PO HS 10/27/19 09/25/22 History metoprolol succinate 50 mg capsule 50 mg PO QAM 10/27/19 09/25/22 History sprinkle, ext. release 24 hr omeprazole 40 mg capsule,delayed 40 mg PO QAM 10/27/19 09/25/22 History release lorazepam 0.5 mg tablet 0.5 mg PO DAILY PRN Anxiety 04/05/20 09/25/22 History allopurinol 100 mg tablet 100 mg PO QAM 12/21/21 09/25/22 History zolpidem 10 mg tablet (Ambien) 10 mg PO HS 12/21/21 09/25/22 History losartan 25 mg tablet 25 mg PO QAM #30 tabs 12/22/21 09/25/22 Rx celecoxib 200 mg capsule (Celebrex) 200 mg PO QAM 09/04/22 09/25/22 History cholecalciferol (vitamin D3) 50 50 mcg PO HS 09/04/22 09/25/22 History mcg (2,000 unit) capsule (Vitamin D3) cyclobenzaprine 10 mg tablet 10 mg PO TID PRN MUSCLE SPASMS 09/04/22 09/25/22 History donepezil 10 mg tablet (Aricept) 10 mg PO HS 09/04/22 09/25/22 History sennosides 8.6 mg tablet (senna) 8.6 mg PO BID PRN Constipation 09/04/22 09/25/22 History Past Med/Surg History Medical History Chronic low back pain Diabetes mellitus, type 2 DIET CONTROLLED GERD (gastroesophageal reflux disease) controlled, stable per pt History of anxiety History of blood transfusion History of COVID-19 X 2 *LAST TIME MARCH 2022>A LINGERING COUGH FROM TIME TO TIME SINCE LAST DX History of depression History of kidney stones Hyperlipidemia Hypertension controlled, stable per pt Lumbar radicular pain Nodule of kidney CT SCAN YEARLY TO EVALUATE SIZE/GROWTH Peripheral neuropathy hands and feet Prolapsed bladder Urinary urgency Surgical History H/O cardiac radiofrequency ablation TACHYCARDIA TX>OVER 15 YEARS AGO (NO CURRENT CARDS) H/O rotator cuff surgery RT H/O: hysterectomy History of colonoscopy History of cystoscopy KIDNEY STONE REMOVAL History of surgery TEMPORARY SPINAL CORD STIMULATOR IMPLANTED *PULLED OUT/NOT CURRENLTY INTACT History of tonsillectomy Previous back surgery L2-S1 posterior fusion (03/2016) [place] teeth removed Family History (Updated 09/04/22 @ 09:16 by Ines Platt RN) Other No family history of adverse response to anesthesia No pertinent family history Social History Smoking Status: Never smoker Second Hand Exposure: No; Do You Dip or Chew Tobacco: No; Hx Alcohol Use: No Hx Substance Use: No Preferred Language: Bangl[place] Communication Ability: Effective Visual Impairment: Limited Hearing Ability: Normal Summer Babysitter Required: No Beliefs That Will Affect Care: None marital status: Current Living Situation: Spouse Current Living Situation Comment: , SON AND DAUGHTER N LAW current occupational status: retired Feels Safe at Home: Yes Safety Concerns: Feels Safe At This Time Assistive Devices: None Physical Exam Physical Exam: Patient is alert and oriented Heart regular rhythm Lungs clear Results & Data Results & Data ([facility]) Vital Signs (Past 12 Hours) Vital Signs Temp Pulse Resp BP Pulse Ox O2 Del Method 09/25/22 09:12 36.6 C 71 20 168/87 H 98 Room Air
[2022-09-25] MEDS ORDERED: FLOSEAL HEMOSTATIC MATRIX 10ML TOP ONE (11:10)
[2022-09-25] MEDS ORDERED: ePHEDrine sulfate 50 MG/ML AMP IV PRN (11:39)
[2022-09-25] MEDS ORDERED: PROMETHAZINE HCL 12.5 MG in SODIUM CHLORIDE 0.9% 50 ML IV PRN ×2 (11:39→14:03)
[2022-09-25] MEDS ORDERED: FLUMAZENIL 0.1 MG/1 ML 10 ML VIAL IV PRN (11:39)
[2022-09-25] MEDS ORDERED: LABETALOL HCL IV 5 MG/ML 20ML IV PRN (11:39)
[2022-09-25] MEDS ORDERED: NALOXONE HCL 0.4 MG/1 ML VIAL/CARP IV PRN ×2 (11:39→14:03)
[2022-09-25] MEDS ORDERED: fentaNYL citrate 100 MCG/2 ML VIAL IV PRN (11:39)
[2022-09-25] MEDS ORDERED: HYDROmorphone INJ 1 MG/ML SYRINGE IV PRN (11:39)
[2022-09-25] MEDS ORDERED: ATROPINE SULFATE 0.1 MG/ML 10ML SYR IV PRN (11:39)
[2022-09-25] MEDS ORDERED: ONDANSETRON INJ 2 MG/ML 2 ML VIAL IV PRN ×2 (11:39→14:03)
--- NOTE | 2022-09-25 12:09 | Operative Report ---
Post Operative Report Pre & Post Diagnosis Operation Date: 09/25/22 10:05 Pre-Op Diagnosis: Lumbar spinal stenosis with neurogenic claudication Obesity Post-Op Diagnosis: Same I identified the patient and participated in the time-out.: Yes Procedure Operation Date: 09/25/22 10:05 Actual Procedures Lumbar decompression bilateral medial facetectomies and foraminotomies T12-L1 L1-L2. #2 posterior spinal fusion T12-L1 L1-L2. #3 placement of posterior instrumentation T12-L2 with connectors at L2-L3. #4 interbody fusion L1-L2. #5 placement spiral 8 x 22 mm at L1-L2. #6 placement use collagen sponge, master graft in the posterior gutters and I factor interbody space. #7 placement of locally harvested morselized autograft and posterior gutters. Surgeon Justino Machado, DO Php Mysql Developer Shara Aguirre Estimated Blood Loss 150 Findings See Below Patient is 5 foot 2 weighing over 85 kg with a BMI in excess of 34. The patient's body habitus did contribute to significant technical difficulty and at least 50% increased operative time. Specimens None Indications This is a 72-year-old female presents above-mentioned diagnosis after failed course of nonoperative care she is here for surgical invention. Description of Procedure Patient was met with identified informed consent obtained. Patient was then taken to the operative suite underwent a patient placed in a prone position the [place] table top Jaden frame. All bony prominences well-padded eyes inspected to ensure no external pressure placed upon them. This point the lumbar spine was prepped and draped in a sterile fashion. Sharp dissection with the assistance of Bovie cautery was performed down to and exposing the lamina and transverse processes of T12 L1-L2 and instrumentation at L2-L3 bilaterally. Then proceeded to perform complete laminectomy L1 partial laminectomy of T12 including bilateral medial facetectomies and foraminotomies addressing all stenosis. Pedicle screws then placed in T12-L1 bilaterally. By way of a transforaminal approach on the right a complete discectomy of L1-L2 was performed endplates curetted to subcortical and bone and 8 x 22 mm spiral cage filled with I factor tapped in position. Proper size rods were then contoured and placed with connectors at the L2-L3 level. Transverse processes of T8 12 L1 and L2 burred to subcortically bone. Infuse collagen sponge from mass graft locally harvested morselized graft was placed in the posterior gutters. 15 round LEAH drain inserted. Incision was then closed with 1 Vicryl the fascia 2-0 Vicryl subcutaneously and 4 Monocryl for fascial closure. Steri-Strips dressings placed. Patient waken taken to PACU stable condition. Please note spinal cord monitoring was last at the procedure no changes noted. Lastly Shara Aguirre was present at the entire surgery involved the patient positioning complex portions of the surgery and fascial closure. I attest to the content of the Intraoperative Record and any orders documented therein. Any exceptions are noted below.
--- NOTE | 2022-09-25 13:26 | Anesthesiology Progress Note ---
Date of Service September 25, 2022 Anesthesia Post Procedure Vital Signs Vital Signs: Temp Pulse Pulse Resp BP Pulse Ox O2 Del Method 09/25/22 13:20 36.3 C L 51 L 16 159/82 H 100 Nasal Cannula 09/25/22 13:10 49 L 13 154/77 H 96 Nasal Cannula 09/25/22 13:00 50 L 11 L 147/73 H 95 Room Air 09/25/22 12:50 57 L 18 159/86 H 93 Room Air 09/25/22 12:40 58 L 13 163/83 H 97 Oxymask 09/25/22 12:31 62 14 160/89 H 100 Oxymask 09/25/22 12:22 36.0 C L 60 16 153/73 H 99 Oxymask 09/25/22 09:12 36.6 C 71 20 168/87 H 98 Room Air O2 Flow Rate 09/25/22 13:20 2 09/25/22 13:10 2 09/25/22 13:00 09/25/22 12:50 09/25/22 12:40 5 09/25/22 12:31 5 09/25/22 12:22 5 09/25/22 09:12 Pain Intensity Bilateral Leg: Pain Intensity: 7 Back: Pain Intensity: 4 Transfer of Care Handoff Completed per policy Notes Mental Status: alert / awake / arousable Patient Amnestic to Procedure: Yes Nausea / Vomiting: adequately controlled Pain: adequately controlled Airway Patency, RR, SpO2: stable & adequate BP & HR: stable & adequate Hydration State: stable & adequate Anesthetic Complications: no major complications apparent
--- NOTE | 2022-09-25 13:27 | Fluoroscopy Report ---
[place] lumbar spine 2-3V CLINICAL HISTORY: T11-L2 DFI COMPARISON STUDY: None. FLUOROSCOPY TIME: 25 seconds FLUOROSCOPY IMAGES: 3 EXPOSURE DOSE: 11.03 mGy FINDINGS: Posterior decompression at T11-L2 with pedicle screws and rods. The hardware appears intact . Additional spinal rods are partially visualized below the L2 level. IMPRESSION: Fluoroscopic assistance provided for posterior decompression fusion from T11 through L2. ACT 112: Negative or not required by law. Electronically signed by: Satya Gibson M.D. 09/25/2022 1:26 PM
[2022-09-25] MEDS ORDERED: LORazepam 2 MG/1 ML VIAL IV PRN (14:03)
[2022-09-25] MEDS ORDERED: ACETAMINOPHEN 1,000 MG/100 ML VIAL IV PRN (14:03)
[2022-09-25] MEDS ORDERED: ONDANSETRON 4 MG OD TAB PO PRN (14:03)
[2022-09-25] MEDS ORDERED: hydrOXYzine HCl 25 MG TAB PO PRN (14:03)
[2022-09-25] MEDS ORDERED: ALUMINUM/MAGNESIUM SUSP 30 ML UDC PO PRN (14:03)
[2022-09-25] MEDS ORDERED: MAGNESIUM HYDROXIDE SUSP 30 ML UDC PO PRN (14:03)
[2022-09-25] MEDS ORDERED: traMADol HCL 50 MG TABLET PO PRN (14:03)
[2022-09-25] MEDS ORDERED: SOD PHOSPHATE/SOD BIPHOSPHATE ENEMA 132 ML BTL PR PRN (14:03)
[2022-09-25] MEDS ORDERED: diphenhydrAMINE Capsule 25 MG CAP PO PRN (14:03)
[2022-09-25] MEDS ORDERED: DO NOT ADMINISTER PNEUMOCOCCAL VACCINE PRN (14:03)
[2022-09-25] MEDS ORDERED: bisacodyL 10 MG SUPP PR PRN (14:03)
[2022-09-25] MEDS ORDERED: CYCLOBENZAPRINE HCL 10 MG TAB PO PRN (14:03)
[2022-09-25] MEDS ORDERED: HYDROmorphone INJ 0.5 MG/0.5 ML SYR IV PRN (14:03)
[2022-09-25] MEDS ORDERED: FAMOTIDINE 20 MG TAB PO PRN (14:03)
[2022-09-25] MEDS ORDERED: LORazepam 0.5 MG TAB PO PRN (14:03)
[2022-09-25] MEDS ORDERED: SENNA 8.6 MG TAB PO PRN (14:03)
[2022-09-25] MEDS ORDERED: DO NOT ADMINISTER FLU VACCINE PRN (14:03)
[2022-09-25] MEDS: LACTATED RINGER'S 1,000 ML IV SCH ×2 (14:09→23:30)
[2022-09-25] MEDS ORDERED: LR 15ML/HR IV SCH (14:45)
[2022-09-25] MEDS ORDERED: GLUCOSE 40% GEL 15 GM TUBE PO PRN (14:53)
[2022-09-25] MEDS ORDERED: DEXTROSE 50% 50 ML SYRINGE IV PRN (14:53)
[2022-09-25] MEDS ORDERED: GLUCAGON FOR INJ 1 MG VIAL SQ PRN (14:53)
[2022-09-25] MEDS ORDERED: GLUCOSE 10 TAB/TUBE PO PRN (14:53)
[2022-09-25] MEDS ORDERED: CARBOHYDRATES FOR HYPOGLYCEMIA PO PRN (14:53)
--- NOTE | 2022-09-25 14:54 | History & Physical Report ---
Date of Service September 25, 2022 Assessment & Plan (1) Postlaminectomy syndrome of lumbosacral region: Plan: Spinal stenosis with claudication, s/p decompression with Dr. Machado DVT prophylaxis, pain control, ambulation per primary team Doing well, postsurgical LEAH drains in place draining sanguinous material Hypertension Resume losartan 25 mg tomorrow if creatinine function is normal and BP is normal/ Metoprolol XL 50 mg daily continued Adequate postop control Hyperlipidemia Continue atorvastatin 20 mg nightly GERD Continue Protonix, converted from omeprazole while inpatient Avoid NSAIDs postoperatively Type 2 diabetes mellitus A1c 6.2, well controlled without anti-lipemics Postop glucose today 107 Follow BMP daily. Conservative SSI with goal [id number], CF 50, carb ratio 25 placed Dementia Continue donepezil Previously alert and oriented during hospitalizations History of chronic constipation . MiraLAX, may use milk of magnesia as second line Gout Continue allopurinol Left renal mass Followed as outpatient by urology. Does not appear enlarging. Is continue with surveillance at this time. No acute management at this time. (2) Hyperlipidemia: (3) Hypertension: (4) Hypomagnesemia: (5) Diabetes mellitus, type 2: (6) GERD (gastroesophageal reflux disease): Admission and Anticipated Discharge Date Admission Date: September 25, 2022 History of Present Illness Primary Care Provider: Justino Tovar DO [place] is a 72-year-old female with a past medical history of gout, chronic constipation, dementia, type 2 diabetes mellitus, GERD, hyperlipidemia, hypertension, left enhancing renal nodule, fibromyalgia who presented for lumbar decompression with Dr. Machado 2/2 lumbar spinal stenosis with neurogenic claudication. S/p Lumbar decompression bilateral medial facetectomies and foraminotomies T12- L1 L1-L2. #2 posterior spinal fusion T12-L1 L1-L2. #3 placement of posterior instrumentation T12-L2 with connectors at L2-L3. #4 interbody fusion L1-L2. #5 placement spiral 8 x 22 mm at L1-L2. #6 placement use collagen sponge, master graft in the posterior gutters and I factor interbody space. #7 placement of locally harvested morselized autograft and posterior gutters. Adelaide is seen at bedside postoperatively. She reports that she feels well. Previously had back pain and numbness/tingling which was shooting to both legs and occasionally down to the heels. She does not have any back pain or numbness or tingling postoperatively at time of assessment. She is able to wiggle her toes and sensation is intact in her feet bilaterally which have good cap refill. She reports she does have bladder spasm and some abdominal discomfort since surgery, is aware that she has a [place] in. She has no chest pain, chest pressure, shortness of breath, lightheadedness, dizziness. She is seen at the bedside with her present. Other than bladder spasm has no acute questions or concerns. Allergies Allergy/AdvReac Type Severity Reaction Status Date / Time prednisone AdvReac Intermediate increased Verified 09/25/22 09:02 blood pressure Home Medications Medication Instructions Recorded Confirmed Type aspirin 81 mg tablet,delayed 81 mg PO HS 10/27/19 09/25/22 History release atorvastatin 20 mg tablet 20 mg PO HS 10/27/19 09/25/22 History metoprolol succinate 50 mg capsule 50 mg PO QAM 10/27/19 09/25/22 History sprinkle, ext. release 24 hr omeprazole 40 mg capsule,delayed 40 mg PO QAM 10/27/19 09/25/22 History release lorazepam 0.5 mg tablet 0.5 mg PO DAILY PRN Anxiety 04/05/20 09/25/22 History allopurinol 100 mg tablet 100 mg PO QAM 12/21/21 09/25/22 History zolpidem 10 mg tablet (Ambien) 10 mg PO HS 12/21/21 09/25/22 History losartan 25 mg tablet 25 mg PO QAM #30 tabs 12/22/21 09/25/22 Rx celecoxib 200 mg capsule (Celebrex) 200 mg PO QAM 09/04/22 09/25/22 History cholecalciferol (vitamin D3) 50 50 mcg PO HS 09/04/22 09/25/22 History mcg (2,000 unit) capsule (Vitamin D3) cyclobenzaprine 10 mg tablet 10 mg PO TID PRN MUSCLE SPASMS 09/04/22 09/25/22 History donepezil 10 mg tablet (Aricept) 10 mg PO HS 09/04/22 09/25/22 History sennosides 8.6 mg tablet (senna) 8.6 mg PO BID PRN Constipation 09/04/22 09/25/22 History Past Med/Surg History Medical History Chronic low back pain Diabetes mellitus, type 2 DIET CONTROLLED GERD (gastroesophageal reflux disease) controlled, stable per pt History of anxiety History of blood transfusion History of COVID-19 X 2 *LAST TIME MARCH 2022>A LINGERING COUGH FROM TIME TO TIME SINCE LAST DX History of depression History of kidney stones Hyperlipidemia Hypertension controlled, stable per pt Lumbar radicular pain Nodule of kidney CT SCAN YEARLY TO EVALUATE SIZE/GROWTH Peripheral neuropathy hands and feet Prolapsed bladder Urinary urgency Surgical History H/O cardiac radiofrequency ablation TACHYCARDIA TX>OVER 15 YEARS AGO (NO CURRENT CARDS) H/O rotator cuff surgery RT H/O: hysterectomy History of colonoscopy History of cystoscopy KIDNEY STONE REMOVAL History of surgery TEMPORARY SPINAL CORD STIMULATOR IMPLANTED *PULLED OUT/NOT CURRENLTY INTACT History of tonsillectomy Previous back surgery L2-S1 posterior fusion (03/2016) [place] teeth removed Family History (Updated 09/04/22 @ 09:16 by Ines Platt RN) Other No family history of adverse response to anesthesia No pertinent family history Social History Smoking Status: Never smoker Second Hand Exposure: No; Do You Dip or Chew Tobacco: No; Hx Alcohol Use: No Hx Substance Use: No Preferred Language: Occitan Communication Ability: Effective Visual Impairment: Limited Hearing Ability: Normal Filter Filler Required: No Beliefs That Will Affect Care: None marital status: Current Living Situation: Spouse Current Living Situation Comment: , SON AND DAUGHTER N LAW current occupational status: retired Feels Safe at Home: Yes Safety Concerns: Feels Safe At This Time Assistive Devices: None Review of Systems Review of Systems: All systems reviewed & are unremarkable except as noted in HPI & below Physical Exam Physical Exam: General: A&Ox3. NAD. Cooperative. HEENT: Atraumatic, normocephalic. Vision/hearing intact Pulm: Diminished but grossly clear symmetrical chest rise. No increased work of breathing. No respiratory distress. Cardiac: RRR, -mrg. Radial pulses intact and symmetrical. Abdominal: Nontender, nondistended, soft. BS present. Extremities: Able to wiggle toes bilaterally. Customer Relations Assistant strength intact bilaterally. PT pulse intact bilaterally. Sensation soft touch intact in hands and feet bilaterally without asymmetry. Back: C/D/I. Drain in place draining sanguinous material. 40 cc emptied with nursing at bedside Results & Data Results & Data ([facility]) Vital Signs (Past 12 Hours) Vital Signs Temp Pulse Pulse Resp BP Pulse Ox O2 Del Method 09/25/22 14:26 58 L 14 146/81 H 100 Nasal Cannula 09/25/22 14:00 Nasal Cannula 09/25/22 14:00 36.4 C L 55 L 16 147/79 H 98 Room Air, Nasal Cannula 09/25/22 13:40 55 L 16 162/83 H 98 Nasal Cannula 09/25/22 13:30 54 L 15 163/79 H 100 Nasal Cannula 09/25/22 13:20 36.3 C L 51 L 16 159/82 H 100 Nasal Cannula 09/25/22 13:10 49 L 13 154/77 H 96 Nasal Cannula 09/25/22 13:00 50 L 11 L 147/73 H 95 Room Air 09/25/22 12:50 57 L 18 159/86 H 93 Room Air 09/25/22 12:40 58 L 13 163/83 H 97 Oxymask 09/25/22 12:31 62 14 160/89 H 100 Oxymask 09/25/22 12:22 36.0 C L 60 16 153/73 H 99 Oxymask 09/25/22 09:12 36.6 C 71 20 168/87 H 98 Room Air O2 Flow Rate 09/25/22 14:26 2 09/25/22 14:00 2 09/25/22 14:00 2 09/25/22 13:40 2 09/25/22 13:30 2 09/25/22 13:20 2 09/25/22 13:10 2 09/25/22 13:00 09/25/22 12:50 09/25/22 12:40 5 09/25/22 12:31 5 09/25/22 12:22 5 09/25/22 09:12 Code Status & VTE Plan VTE Prophylaxis Plan VTE Prophylaxis will be ordered: Yes PG Care Time/CCT Total # of Minutes Spent Total Time Spent with Patient: Total time spent is greater than 50% in coordination of care (as documented) at patient's floor/unit and/or counseling patient: Coding Level of Care Code 01312 INT INP/OBS CARE Diagnoses Postlaminectomy syndrome of lumbosacral region M96.1 Hyperlipidemia E78.2 Hyperlipidemia type: mixed hyperlipidemia Hypertension I10 Hypertension type: unspecified Hypomagnesemia E83.42 Diabetes mellitus, type 2 E11.9 GERD (gastroesophageal reflux disease) K21.9 Esophagitis presence: esophagitis presence not specified (1) Hyperlipidemia Hyperlipidemia type: mixed hyperlipidemia Qualified Code(s): E78.2 - Mixed hyperlipidemia (2) Hypertension Hypertension type: unspecified Qualified Code(s): I10 - Essential (primary) hypertension (3) GERD (gastroesophageal reflux disease) Esophagitis presence: esophagitis presence not specified Qualified Code(s): K21.9 - Gastro-esophageal reflux disease without esophagitis
[2022-09-25] MEDS: dexAMETHasone 6 MG in SYRINGE 0 ML IV SCH ×2 (15:17→23:31)
[2022-09-25] MEDS: METOCLOPRAMIDE HCL INJ 5 MG/ML 2 ML VIAL IV PRN (15:18)
[2022-09-25] MEDS: HYDROmorphone INJ 1 MG/ML SYRINGE IV PRN (15:18)
[2022-09-25] MEDS: ceFAZolin 2000MG 2,000 MG/15 ML SYR IV SCH (17:10)
[2022-09-25] MEDS: INSULIN ASPART PER UNIT SC SCH ×2 (17:44→21:00)
[2022-09-25] MEDS: ASPIRIN 81 MG ECTAB PO SCH (20:50)
[2022-09-25] MEDS: CHOLECALCIFEROL 1,000 UNITS 25 MCG TAB PO SCH (20:50)
[2022-09-25] MEDS: DOCUSATE SODIUM/SENNA 50/8.6MG TAB PO SCH (20:50)
[2022-09-25] MEDS: DONEPEZIL HCL 10 MG TAB PO SCH (20:51)
[2022-09-25] MEDS: ATORVASTATIN 20 MG TAB PO SCH (20:51)
[2022-09-25] MEDS: ZOLPIDEM TARTRATE 10 MG TAB PO SCH (20:54)
[2022-09-26] MEDS: ceFAZolin 2000MG 2,000 MG/15 ML SYR IV SCH (02:00)
[2022-09-26] MEDS: HYDROmorphone INJ 1 MG/ML SYRINGE IV PRN (02:01)
[2022-09-26] MEDS: POLYETHYLENE (MIRALAX) 17 GM PACK PO SCH ×3 (05:52→17:11)
[2022-09-26 06:42] LABS: Basophils # (auto) 0.01 K/uL (0-0.2); Basophils % (auto) 0.1 %; Hematocrit (blood only) 37.9 % (34.1-44.9); Hemoglobin 12.4 g/dl (12.0-16.0); Immature Granulocytes # (auto) 0.05 K/uL (0.00-0.02); Immature Granulocytes % (auto) 0.4 %; Lymphocytes # (auto) 1.04 K/uL (1.2-3.4); Lymphocytes % (auto) 8.9 %; Mean Corpuscular Hemoglobin 29.7 pg (25.0-34.0); Mean Corpuscular Hgb Conc 32.7 g/dL (32.0-36.0); Mean Corpuscular Volume 90.7 fL (80.0-100.0); Mean Platelet Volume 10.8 fL (9.4-12.3); Monocytes # (auto) 0.33 K/uL (0.24-0.82); Monocytes % (auto) 2.8 %; Neutrophils # (auto) 10.31 K/uL (1.4-6.5); Neutrophils % (auto) 87.8 %; Platelet Count 213 K/uL (130-400); RDW Coefficient of Variation 13.7 % (11.5-14.5); Red Blood Count 4.18 M/uL (3.93-5.22); White Blood Count 11.74 K/ul (4.8-10.8)
[2022-09-26 07:00] LABS: Calcium 9.2 mg/dl (8.5-10.1); Potassium 4.4 mmol/L (3.5-5.1)
[2022-09-26 07:06] LABS: BUN Creatinine Ratio 22.4 (10-20); Creatinine Clr Calc Pharmacy 51.1 ml/min; Est GFR (African American) 65.9 ml/min; Est GFR (Non-African American) 56.8 ml/min
[2022-09-26] MEDS: oxyCODONE HCL IR 5 MG TAB (IMMEDIATE RELEASE) PO PRN ×4 (07:20→20:57)
[2022-09-26] MEDS: METOPROLOL SUCC 50MG EXT REL TAB PO SCH (08:15)
[2022-09-26] MEDS: LOSARTAN POTASSIUM 25 MG TAB PO SCH (08:15)
[2022-09-26] MEDS: allopurinoL 100 MG TAB PO SCH (08:15)
[2022-09-26] MEDS: PANTOprazole 40 MG TAB PO SCH (08:16)
[2022-09-26] MEDS: dexAMETHasone 6 MG in SYRINGE 0 ML IV SCH (08:16)
[2022-09-26] MEDS: INSULIN ASPART PER UNIT SC SCH ×4 (08:40→20:47)
--- NOTE | 2022-09-26 09:55 | Orthopedic Progress Note ---
Date of Service September 26, 2022 Assessment & Plan (1) Postlaminectomy syndrome of lumbosacral region: Plan: Assessment lumbar decompression fusion. Plan at this time continue physical therapy monitor LEAH operatively discharge home next few days. Admission and Anticipated Discharge Date Admission Date: September 25, 2022 Subjective Back pain controlled leg symptoms markedly improved Physical Exam Physical Exam: Patient appears comfortable. She has good strength testing. Results & Data ([facility]) Vital Signs (Past 12 Hours) Vital Signs Temp Pulse Resp BP BP Pulse Ox O2 Del Method 09/26/22 07:02 36.4 C L 90 16 118/80 97 Room Air 09/26/22 04:12 36.7 C 85 16 115/72 96 Nasal Cannula 09/25/22 22:34 36.7 C 91 H 16 127/78 98 Room Air O2 Flow Rate 09/26/22 07:02 09/26/22 04:12 2 09/25/22 22:34
--- NOTE | 2022-09-26 14:20 | Hospitalist Progress Note ---
Date of Service September 26, 2022 Assessment & Plan (1) Postlaminectomy syndrome of lumbosacral region: Plan: Spinal stenosis with claudication, s/p decompression with Dr. Machado DVT prophylaxis, pain control, ambulation per primary team Doing well, postsurgical LEAH drains in place draining sanguinous material - PT/OT eval - Case management consult to assist in dc planning (2) Hyperlipidemia: Plan: Continue atorvastatin 20 mg nightly (3) Hypertension: Plan: Resume losartan 25 mg tomorrow if creatinine function is normal and BP is normal/ Metoprolol XL 50 mg daily continued Adequate postop control (4) Diabetes mellitus, type 2: Plan: A1c 6.2, well controlled without anti-lipemics Postop glucose today 107 Follow BMP daily. Conservative SSI with goal [id number], CF 50, carb ratio 25 placed (5) GERD (gastroesophageal reflux disease): Plan: Continue Protonix, converted from omeprazole while inpatient Avoid NSAIDs postoperatively Plan Dementia Continue donepezil Previously alert and oriented during hospitalizations Left renal mass Followed as outpatient by urology. Does not appear enlarging. Is continue with surveillance at this time. No acute management. Patient is medically doing well post operatively, would advise starks catheter removal, otherwise no additional recommendations. Thank you for allowing us to participate in the care of your patient, will sign off at this time but continue to do daily chart checks while she remains in house. Please feel free to contact if any acute needs should arise. Above plan of care to be d/w Dr. Stanley. Admission and Anticipated Discharge Date Admission Date: September 25, 2022 Subjective Patient was seen on daily rounds this morning. She reports some incisional soreness but overall is feeling well. She denies pain radiating down one or both legs. Denies cp or dyspnea. Review of Systems Review of Systems: All systems reviewed and are unremarkable except as noted in HPI and below. Denies fever, chills, fatigue, headache, nasal congestion, sore throat, cough, chest pain, shortness of breath, palpitations, orthopnea, PND, abdominal pain, n/v/d, constipation, dysuria, hematuria, frequency, joint pain or swelling, easy bruising or bleeding, skin lesions or rashes. Physical Exam Physical Exam: GENERAL: 72 yo Well-developed, well-nourished WF. NAD. LUNGS: Clear to auscultation bilaterally. No W/R/R. CARDIOVASCULAR: Regular rate and rhythm. ABDOMEN: Soft, non-tender and non-distended. BS normoactive x 4 quad. : starks catheter remains in place EXTREMITIES: No edema. Non-tender. Peripheral pulses +2/4. NEUROLOGIC: A&O x3. Nonfocal PSYCHIATRIC: Cooperative. Appropriate mood and affect. SKIN: Warm, dry, intact. No rashes or lesions. Back surgical incision is dressed. LEAH drain visualized. Results & Data Results & Data ([facility]) Vital Signs (Past 12 Hours) Vital Signs Temp Pulse Resp BP BP Pulse Ox O2 Del Method 09/26/22 07:02 36.4 C L 90 16 118/80 97 Room Air 09/26/22 04:12 36.7 C 85 16 115/72 96 Nasal Cannula O2 Flow Rate 09/26/22 07:02 09/26/22 04:12 2 Laboratory Results 09/26/22 06:12 09/26/22 06:12 PG Care Time/CCT Total # of Minutes Spent Total Time Spent with Patient: Total time spent is greater than 50% in coordination of care (as documented) at patient's floor/unit and/or counseling patient: Coding Level of Care Code 15083 SUB INP/OBS CARE 2/35MIN Diagnoses Postlaminectomy syndrome of lumbosacral region M96.1 Hyperlipidemia E78.2 Hyperlipidemia type: mixed hyperlipidemia Hypertension I10 Hypertension type: unspecified Diabetes mellitus, type 2 E11.9 GERD (gastroesophageal reflux disease) K21.9 Esophagitis presence: esophagitis presence not specified (1) Hyperlipidemia Hyperlipidemia type: mixed hyperlipidemia Qualified Code(s): E78.2 - Mixed hyperlipidemia (2) Hypertension Hypertension type: unspecified Qualified Code(s): I10 - Essential (primary) hypertension (3) GERD (gastroesophageal reflux disease) Esophagitis presence: esophagitis presence not specified Qualified Code(s): K21.9 - Gastro-esophageal reflux disease without esophagitis
[2022-09-26] MEDS: ACETAMINOPHEN 500 MG TAB PO PRN (17:10)
[2022-09-26] MEDS: ZOLPIDEM TARTRATE 10 MG TAB PO SCH (20:44)
[2022-09-26] MEDS: ASPIRIN 81 MG ECTAB PO SCH (20:45)
[2022-09-26] MEDS: DOCUSATE SODIUM/SENNA 50/8.6MG TAB PO SCH (20:45)
[2022-09-26] MEDS: CHOLECALCIFEROL 1,000 UNITS 25 MCG TAB PO SCH (20:46)
[2022-09-26] MEDS: ATORVASTATIN 20 MG TAB PO SCH (20:46)
[2022-09-26] MEDS: DONEPEZIL HCL 10 MG TAB PO SCH (20:46)
[2022-09-27] MEDS: POLYETHYLENE (MIRALAX) 17 GM PACK PO SCH ×4 (00:38→18:15)
[2022-09-27] MEDS: oxyCODONE HCL IR 5 MG TAB (IMMEDIATE RELEASE) PO PRN ×3 (05:40→19:41)
[2022-09-27] MEDS: METOPROLOL SUCC 50MG EXT REL TAB PO SCH (10:45)
[2022-09-27] MEDS: allopurinoL 100 MG TAB PO SCH (10:45)
[2022-09-27] MEDS: PANTOprazole 40 MG TAB PO SCH (10:45)
[2022-09-27] MEDS: LOSARTAN POTASSIUM 25 MG TAB PO SCH (10:45)
[2022-09-27] MEDS: INSULIN ASPART PER UNIT SC SCH ×4 (11:31→20:46)
--- NOTE | 2022-09-27 12:44 | Orthopedic Progress Note ---
Date of Service September 27, 2022 Assessment & Plan (1) Postlaminectomy syndrome of lumbosacral region: Plan: This time continue physical therapy monitor her LEAH output hopefully discharge home tomorrow. Admission and Anticipated Discharge Date Admission Date: September 25, 2022 Subjective Back pain controlled leg pain markedly improved Physical Exam Physical Exam: Patient is in the chair at the bedside. He is comfortable. Is good strength testing. Results & Data ([facility]) Vital Signs (Past 12 Hours) Vital Signs Temp Pulse Resp BP Pulse Ox O2 Del Method 09/27/22 06:59 36.6 C 79 16 125/73 97 Room Air
[2022-09-27] MEDS: ASPIRIN 81 MG ECTAB PO SCH (19:40)
[2022-09-27] MEDS: DOCUSATE SODIUM/SENNA 50/8.6MG TAB PO SCH (19:40)
[2022-09-27] MEDS: ATORVASTATIN 20 MG TAB PO SCH (19:40)
[2022-09-27] MEDS: DONEPEZIL HCL 10 MG TAB PO SCH (19:40)
[2022-09-27] MEDS: CHOLECALCIFEROL 1,000 UNITS 25 MCG TAB PO SCH (19:41)
[2022-09-27] MEDS: ACETAMINOPHEN 500 MG TAB PO PRN (19:41)
[2022-09-27] MEDS: HYDROmorphone INJ 1 MG/ML SYRINGE IV PRN (22:11)
[2022-09-27] MEDS: ZOLPIDEM TARTRATE 10 MG TAB PO SCH (23:46)
[2022-09-28] MEDS: POLYETHYLENE (MIRALAX) 17 GM PACK PO SCH ×3 (00:33→12:10)
[2022-09-28] MEDS: oxyCODONE HCL IR 5 MG TAB (IMMEDIATE RELEASE) PO PRN ×3 (08:32→21:02)
[2022-09-28] MEDS: METOPROLOL SUCC 50MG EXT REL TAB PO SCH (08:39)
[2022-09-28] MEDS: PANTOprazole 40 MG TAB PO SCH (08:39)
[2022-09-28] MEDS: LOSARTAN POTASSIUM 25 MG TAB PO SCH (08:39)
[2022-09-28] MEDS: allopurinoL 100 MG TAB PO SCH (08:39)
--- NOTE | 2022-09-28 08:43 | Orthopedic Progress Note ---
Date of Service September 28, 2022 Assessment & Plan (1) Lumbar radicular pain: Plan: At this time we will continue physical therapy and possible discharge home today if she is more comfortable. Admission and Anticipated Discharge Date Admission Date: September 25, 2022 Subjective Patient complaining of back pain last night. Was unable to sleep. Leg pain is still improved. Physical Exam Physical Exam: Patient is up and ambulating Results & Data ([facility]) Vital Signs (Past 12 Hours) Vital Signs Temp Pulse Resp BP Pulse Ox O2 Del Method 09/28/22 08:35 86 142/82 H 09/28/22 07:08 36.5 C 77 16 131/84 98 Room Air 09/27/22 21:13 36.7 C 67 16 126/81 98 Room Air
[2022-09-28] MEDS: INSULIN ASPART PER UNIT SC SCH ×4 (08:55→21:00)
--- NOTE | 2022-09-28 10:33 | Communication Note ---
Date of Service: September 28, 2022 Hospitalist service had signed off but was chart checking. Officially signed off as discussed with primary, no acute medical needs at this time but to contact if any needs arise. Possible d/c later today per primary service
[2022-09-28] MEDS: HYDROmorphone INJ 1 MG/ML SYRINGE IV PRN ×2 (11:15→15:25)
[2022-09-28] MEDS: METOCLOPRAMIDE HCL INJ 5 MG/ML 2 ML VIAL IV PRN (11:55)
[2022-09-28] MEDS: DOCUSATE SODIUM/SENNA 50/8.6MG TAB PO SCH (20:59)
[2022-09-28] MEDS: CHOLECALCIFEROL 1,000 UNITS 25 MCG TAB PO SCH (20:59)
[2022-09-28] MEDS: ATORVASTATIN 20 MG TAB PO SCH (20:59)
[2022-09-28] MEDS: DONEPEZIL HCL 10 MG TAB PO SCH (21:00)
[2022-09-28] MEDS: ASPIRIN 81 MG ECTAB PO SCH (21:00)
[2022-09-28] MEDS: ZOLPIDEM TARTRATE 10 MG TAB PO SCH (21:03)
[2022-09-29] MEDS: oxyCODONE HCL IR 5 MG TAB (IMMEDIATE RELEASE) PO PRN ×2 (07:27→12:42)
--- NOTE | 2022-09-29 09:17 | XRay Report ---
XR lumbar spine 2-3V HISTORY: 72 years-old Female postop status post lumbar spine fusion COMPARISON: CT abdomen and pelvis 08/02/2022 TECHNIQUE: 3 views of the lumbar spine FINDINGS: Air-filled loops of large and small bowel may reflect ileus. Posterior interbody mariam and screw fusion hardware noted at T12-S1 with L1-L2 and L5-S1 discectomy. The hardware appears intact. Moderate to s evere multilevel disc space narrowing with moderate spondylitic spurring and facet arthrosis. Mild le voscoliosis. Surgical drainage catheter. Atherosclerosis of the aorta. IMPRESSION: 1. No acute fracture or subluxation. 2. Degenerative changes as above. ACT 112: Negative or not required by law. The above report was generated using voice recognition software. It may contain grammatical, syntax o r spelling errors. Electronically signed by: Mayito Hernández M.D. 09/29/2022 9:14 AM
[2022-09-29] MEDS: INSULIN ASPART PER UNIT SC SCH ×2 (09:50→12:30)
[2022-09-29] MEDS: METOPROLOL SUCC 50MG EXT REL TAB PO SCH (10:09)
[2022-09-29] MEDS: ACETAMINOPHEN 500 MG TAB PO PRN (10:09)
[2022-09-29] MEDS: PANTOprazole 40 MG TAB PO SCH (10:09)
[2022-09-29] MEDS: LOSARTAN POTASSIUM 25 MG TAB PO SCH (10:09)
[2022-09-29] MEDS: allopurinoL 100 MG TAB PO SCH (10:10)
--- NOTE | 2022-09-29 10:47 | Discharge Summary ---
Date of Service September 29, 2022 Admission HPI Per Admitting Provider Adelaide is a 72-year-old female with a past medical history of gout, chronic constipation, dementia, type 2 diabetes mellitus, GERD, hyperlipidemia, hypertension, left enhancing renal nodule, fibromyalgia who presented for lumbar decompression with Dr. Machado 2/2 lumbar spinal stenosis with neurogenic claudication. S/p Lumbar decompression bilateral medial facetectomies and foraminotomies T12- L1 L1-L2. #2 posterior spinal fusion T12-L1 L1-L2. #3 placement of posterior instrumentation T12-L2 with connectors at L2-L3. #4 interbody fusion L1-L2. #5 placement spiral 8 x 22 mm at L1-L2. #6 placement use collagen sponge, master graft in the posterior gutters and I factor interbody space. #7 placement of locally harvested morselized autograft and posterior gutters. Adelaide is seen at bedside postoperatively. She reports that she feels well. Previously had back pain and numbness/tingling which was shooting to both legs and occasionally down to the heels. She does not have any back pain or numbness or tingling postoperatively at time of assessment. She is able to wiggle her toes and sensation is intact in her feet bilaterally which have good cap refill. She reports she does have bladder spasm and some abdominal discomfort since surgery, is aware that she has a [place] in. She has no chest pain, chest pressure, shortness of breath, lightheadedness, dizziness. She is seen at the bedside with her present. Other than bladder spasm has no acute questions or concerns. Principal Diagnosis Lumbar spinal stenosis with neurogenic claudication Discharge Data Allergies Allergy/AdvReac Type Severity Reaction Status Date / Time prednisone AdvReac Intermediate increased Verified 09/25/22 09:02 blood pressure Consultations 09/25/22 14:03 Consult Hospitalist Routine Procedures Performed Operation Date: 09/25/22 10:05 Actual Procedures p L1-L2 Decompression, T11-L2 Fusion, Spinal Cord Monitoring(Not Applicable) - Justino Machado DO Ordered Studies 09/25/22 10:05 FL lumbar spine 2-3V Routine Hospital Course (1) Lumbar radicular pain: Patient with lumbar depression fusion tolerated this well was taken to orthopedic for postoperative post. Postop day 1 she was up and ambulating. Postop day #2 and 3 LEAH drain decreasing probably. Excellent strength testing. Pain controlled. Separately discharged home. Discharge orders and instructions on the chart for further review. Total Time Total Time Spent Total Time Spent (In Minutes): 20 minutes Discharge Plan Discharge Items Patient Disposition: Home - Self-Care Reason For Visit: Unspecified Thoracic, Thoracolumbar and Lumbosacra Discharge Diagnosis: Lumbar spinal stenosis with neurogenic claudication Activity: As commented below Non-emergency contact: Primary Care Provider Call non-emergency contact if: you have any medication questions Follow-up/Referrals: Justino Tovar DO [Primary Care Provider] - Diet: Regular Addtl Attending Provider Instructions: ACTIVITY RECOMMENDATIONS: SELF CARE INSTRUCTIONS AFTER THORACIC/LUMBAR FUSIONS 1. You may walk to your tolerance. It is good exercise for your legs and back. Expect some back and intermittent leg aches and pains. 2. You may perform "counter-top" level activities (make a sandwich, lisa with a project, etc.). 3. No bending or lifting of more than 10 pounds or back twisting of any nature (roll like a log when turning in bed). 4. You may ride in a car for 20-30 minutes at a time. No driving until after your first visit with your doctor. 5. Frequent changes of position and restricting sitting to 30 minutes at a time will help limit the amount of back spasms and stiffness you may experience. 6. You may discontinue the use of ambulatory aids (cane, crutches, etc.) once your strength and confidence allow. 7. You may infant room teacher the shower and let water strike your incision when you arrive home at least once daily. Do not take a tub bath, sit in a hot tub or go into a swimming pool until after your first recheck in the office. SPECIAL CARE INSTRUCTIONS: VERY IMPORTANT TO READ AND REVIEW A. Your surgical incision has been closed with a cosmetic suture under the skin that will dissolve in about 6 weeks. In 14 days, you can use a pair of clean scissors and cut the suture that is left outside of the skin at the ends of your incision. 1. The small skin tapes can be removed 7 days after surgery if they have not fallen off by that point. 2. You may keep the wound open to air as much as possible to promote healing after post-op day number 5 unless told otherwise by your doctor. 3. If you think the wound looks like it is becoming infected (redness or worsening drainage) and/or you are experiencing fever, chill or worsening back pain and muscle spasms, contact the office so that we may evaluate you as soon as possible. B. Complications are uncommon, but please contact us if you have any signs or symptoms of: 1. wound infection (fever higher than 102.5 degrees F, redness, separation of wound, drainage, or increasing pain from the incision) 2. blood clots in legs (pain, swelling, redness and warmth in legs) 3. urinary tract infection (fever higher than 102.5 degrees F, burning upon urination or increased frequency of urination) 4. nerve problems (inability to walk on your toes or heels, numbness, loss of bowel or bladder control) 5. any other symptoms that concern you C. Please call the office at if you have any concerns or questions about your operation or recovery. D. No smoking! Smoking drastically decreases the chance of a solid fusion. E. Do not take any anti-inflammatory medications (Indocin, Advil, Motrin, Aspirin, Naprosyn, etc.) as these may inhibit the chance of a solid fusion. Tylenol is okay to take for pain. MANAGING PAIN AFTER SPINAL SURGERY 1. Narcotic medication is intended for short-term use and will be provided for surgical pain. Surgical pain usually lasts for a period of 4-6 weeks. Narcotic medication includes Percocet, Vicodin, Darvocet, Tylenol #3 or Lortab. 2. Longer-term pain is more appropriately treated with non-narcotic medication such as Tylenol ES. 3. Muscle spasm is not appropriately treated with narcotics. Muscle relaxers such as Soma, Flexeril or Skelaxin can be used along with Tylenol ES. 4. Remember that we all live with some "aches and pains". This is not unusual or uncommon after an injury or as we get older. a. Back pain is expected and may include muscle spasms for 4 to 6 weeks after surgery. The pain should gradually improve. If the pain worsens for no apparent reason, please contact the office. b. Intermittent leg pain may also be experienced and should not be concerned about unless it worsens for no apparent reason. If so, please contact the office. 5. We will provide appropriate medication within the normal guidelines of their prescribed use. We will also be very cautious and aware of potential abuse and extended duration of patients' medication needs. a. Pain medications are for your comfort and to assist with sleep and rest so that the tissue can heal. They are not provided in order to return to normal activity and should not be used through the day. To do so or worsening pain at night can result from ongoing tissue damage and development of tolerance to the prescribed medicine. 6. Please allow 2-3 days to process refills. Prescriptions will not be mailed but must be picked up at the office. FOLLOW UP VISIT: Keep your scheduled follow-up appointment. Any questions, please call the office at . Pending Studies at Discharge: No Stand-Alone Forms: [facility] [employer], Smoking Cessation Medications and DC Order Prescriptions: New tramadol 50 mg tablet 50 mg PO Q6H PRN (Reason: pain, moderate) Qty: 30 0RF oxycodone 5 mg tablet 5 mg PO Q6H PRN (Reason: pain, severe) Qty: 30 0RF Continued metoprolol succinate 50 mg capsule,sprinkle,ER 24hr 50 mg PO QAM omeprazole 40 mg capsule,delayed release(DR/EC) 40 mg PO QAM atorvastatin 20 mg tablet 20 mg PO HS aspirin 81 mg tablet,delayed release (DR/EC) 81 mg PO HS lorazepam 0.5 mg tablet 0.5 mg PO DAILY PRN (Reason: Anxiety) allopurinol 100 mg tablet 100 mg PO QAM zolpidem [Ambien] 10 mg tablet 10 mg PO HS losartan 25 mg Tablet 25 mg PO QAM Qty: 30 0RF celecoxib [Celebrex] 200 mg Capsule 200 mg PO QAM cyclobenzaprine 10 mg Tablet 10 mg PO TID PRN (Reason: MUSCLE SPASMS) sennosides [senna] 8.6 mg Tablet 8.6 mg PO BID PRN (Reason: Constipation) donepezil [Aricept] 10 mg Tablet 10 mg PO HS cholecalciferol (vitamin D3) [Vitamin D3] 50 mcg (2,000 unit) Capsule 50 mcg PO HS Discharge Orders: Discharge Order (Routine); Ordered 09/29/22 Ordered By: Justino Machado Admission Data Admit Date/Time: 09/25/22 12:15 Attending Provider: Justino Machado Admit Provider: Justino Machado Primary Care Provider: Justino Tovar Other Providers: Lito Clement Natalie B.
== END 2022-09-29 14:10 | disposition home or self-care (01) | DRG 455 ==
LOC: ASU 08:18 → INTOOBSV 12:15 → 3E 12:15

== ENCOUNTER 2024-07-30 12:15 | Inpatient (IN) ==
[2024-07-30] MEDS: SODIUM CHLORIDE 0.9% 1,000 ML IV ONE ×2 (12:55→14:11)
[2024-07-30 13:06] LABS: Basophils # (auto) 0.05 K/uL (0.00-0.20); Basophils % (auto) 0.5 %; Hematocrit (blood only) 36.3 % (37.0-47.0); Hemoglobin 11.5 g/dl (12.0-16.0); Immature Granulocytes # (auto) 0.05 K/uL (0.01-0.20); Immature Granulocytes % (auto) 0.5 %; Lymphocytes # (auto) 2.26 K/uL (1.20-3.40); Lymphocytes % (auto) 22.5 %; Mean Corpuscular Hemoglobin 29.7 pg (25.0-34.0); Mean Corpuscular Hgb Conc 31.7 g/dL (32.0-36.0); Mean Corpuscular Volume 93.8 fL (80.0-100.0); Mean Platelet Volume 10.8 fL (9.4-12.4); Monocytes # (auto) 0.56 K/uL (0.11-0.59); Monocytes % (auto) 5.6 %; Neutrophils # (auto) 7.02 K/uL (1.40-6.50); Neutrophils % (auto) 69.9 %; Nucleated RBC # (auto) 0.04 K/uL (0.00-0.12); Nucleated RBC % (auto) 0.4 %; Platelet Count 265 K/uL (130-400); RDW Coefficient of Variation 17.3 % (11.5-14.5); RDW Standard Deviation 59.1 fL (36.4-46.3); Red Blood Count 3.87 M/uL (4.20-5.40); White Blood Count 10.04 K/ul (4.8-10.8)
--- NOTE | 2024-07-30 13:13 | XRay Report ---
XR chest 1V portable CLINICAL HISTORY: Shortness of breath. COMPARISON STUDY: Chest radiograph September 11, 2022. Chest CT December 21, 2021.. FINDINGS: Lung volumes are normal. There is no consolidation. Linear left basilar densities favor ate lectasis. There is no pneumothorax or pleural effusion. Cardiac size is normal. Mediastinal contours are normal. There is no evidence for pulmonary edema. Upper findings within the spine are partially i feliberto. IMPRESSION: No acute cardiopulmonary findings. ACT 112: Negative or not required by law. Electronically signed by: Jose Schmidt M.D. 07/30/2024 1:11 PM
[2024-07-30 13:22] LABS: Albumin Globulin Ratio 1.6 (0.9-2); Albumin Level 4.2 gm/dl (3.4-5.0); BUN Creatinine Ratio 26.7 (10-20); Bilirubin,Total 0.8 mg/dl (0.2-1.0); Calcium 9.2 mg/dl (8.6-10.3); Globulin 2.6 gm/dl (2.5-4.0); Magnesium 2.1 mg/dl (1.7-2.4); Potassium 4.2 mmol/L (3.5-5.1); Total Protein 6.8 gm/dl (6.0-8.3)
[2024-07-30] MEDS: OPTIRAY 320 125ml IV ONE (13:31)
[2024-07-30 13:36] LABS: Thyroid Stimulating Hormone 3.792 uIu/ml (0.300-4.500)
[2024-07-30 13:37] LABS: Prothrombin Time 10.7 Seconds (9.0-12.0)
--- NOTE | 2024-07-30 14:07 | CT Scan Report ---
CT ANGIOGRAPHY OF THE CHEST, PULMONARY EMBOLUS PROTOCOL CLINICAL HISTORY: Hypotension. Melena. Evaluate for pulmonary embolus. COMPARISON STUDY: Chest CT December 21, 2021. Chest radiograph performed earlier today. TECHNIQUE: Following IV administration of 119 mL of Optiray, helical axial images of the chest were o btained utilizing the pulmonary embolus protocol. Maximal intensity projections and sagittal and cor onal reformats were viewed on an independent 3D workstation. IV contrast was administered without co mplication. Automated exposure control was utilized for the study. A dose lowering technique was ut ilized adhering to the principles of ALARA. CT DOSE: 2289.39 mGy.cm FINDINGS: No pulmonary emboli are identified. There is no thoracic aortic dissection. Size of the he art is normal. There is moderate coronary artery calcification. The central airways are patent. There is no pneumothorax or pleural effusion. No consolidation to suggest pneumonia. There are no pulmonar y nodules. Subpleural ground glass opacities favor atelectasis. Moderate amount of hyperdense materia l within the stomach is present. IMPRESSION: 1. No pulmonary emboli identified. 2. No acute intrathoracic findings. 3. Moderate amount of hyperdense material within the stomach. This could represent ingested contents. However, clot within the stomach could appear similar. ACT 112: Negative or not required by law. Electronically signed by: Jose Schmidt M.D. 07/30/2024 2:05 PM
--- NOTE | 2024-07-30 14:13 | CT Scan Report ---
EXAM: CT Abdomen and Pelvis With Intravenous Contrast INDICATION: Melena. Hypotension. TECHNIQUE: Axial computed tomography images of the abdomen and pelvis with intravenous contrast. Sagittal and coronal reformatted images were created and reviewed. This CT exam was performed using one or more of the following dose reduction techniques: automated exposure control, adjustment of the mA and/or kV according to patient size, and/or use of iterative reconstruction technique. CONTRAST: 119ml of Optiray 320 was administered intravenously. COMPARISON: No relevant prior studies available. FINDINGS: Limitations: None. Lung bases: No abnormality noted. Pleural space: No visualized pleural effusion or pneumothorax. Heart: No abnormality noted. Mediastinum: No abnormality noted. ABDOMEN: Liver: No abnormality noted. Gallbladder and bile ducts: No calcified stones or surrounding fluid. Pancreas: Homogeneous enhancement. No mass, inflammation or ductal dilation. Spleen: No significant abnormality noted. Adrenals: No significant abnormality noted. Kidneys and ureters: Bilateral renal cortical scarring present. No solid nodule, stones or hydronephrosis. Probable tiny cysts too small to characterize. No further assessment required. Stomach and bowel: Few scattered colonic diverticula noted. No diverticulitis. Incompletely distended stomach without gross abnormality. PELVIS: Appendix: Well seen and appears normal. Bladder: There is mild bladder prolapse. Reproductive: Hysterectomy. 11 mm benign cyst left ovary. ABDOMEN and PELVIS: Intraperitoneal space: No free air. No significant fluid collection. Bones/joints: No acute changes. Soft tissues: Umbilical hernia containing fat. Vasculature: Atherosclerotic calcification of the aorta and branches. No aneurysm. Lymph nodes: No pathologically enlarged lymph nodes. IMPRESSION: 1. Incompletely distended suboptimally assessed stomach. There is no intestinal inflammation. 2. Few scattered colonic diverticula without diverticulitis. 3. Mild bladder prolapse. ACT 112: Negative or not required by law. Electronically signed by Mallorie Cazares 07-30-2024 2:13 PM
[2024-07-30 14:27] LABS: Hematocrit (blood only) 29.9 % (37.0-47.0); Hemoglobin 9.5 g/dl (12.0-16.0); Mean Corpuscular Hemoglobin 30.3 pg (25.0-34.0); Mean Corpuscular Hgb Conc 31.8 g/dL (32.0-36.0); Mean Corpuscular Volume 95.2 fL (80.0-100.0); Mean Platelet Volume 10.6 fL (9.4-12.4); Nucleated RBC # (auto) 0.02 K/uL (0.00-0.12); Nucleated RBC % (auto) 0.3 %; Platelet Count 173 K/uL (130-400); RDW Coefficient of Variation 17.3 % (11.5-14.5); RDW Standard Deviation 59.8 fL (36.4-46.3); Red Blood Count 3.14 M/uL (4.20-5.40); White Blood Count 7.69 K/ul (4.8-10.8)
--- NOTE | 2024-07-30 14:44 | Emergency Department Note ---
Impression & Plan Hypotension, Acute GI bleeding, Symptomatic anemia ED Provider Note ED Provider Note NAME: DAILY BAUTISTA AGE:74 SEX: Female : 1950 ARRIVES VIA: Private vehicle INFORMANT: Patient ED PROVIDER(s): Connie Harris DO CHIEF COMPLAINT: Shortness of breath, dizziness, black stools HPI: This is a 74-year-old female who presents emergency ferment due to concern for worsening shortness of breath, dizziness, and black stools recently. She states she has more fatigued and tired. She states she is short of breath with any activity or exertion. She states she gets dizzy/lightheaded with any change in position or standing. She states she has noticed recently that her stools have been very black. She states they mostly still been formed although last night did appear loose. She denies headaches, chest pain, or abdominal pain. She denies any overt blood in her stools or blood in her urine. She does use aspirin and Brilinta due to prior history of a cardiac stent. She states no history of GI bleed or PUD. No other recent change in medications. She denies any use of iron supplementation or recent use of Pepto-Bismol. PAST MEDICAL HISTORY:See Below PAST SURGICAL HISTORY:See Below FAMILY HISTORY:See Below SOCIAL HISTORY:See Below HOME MEDICATIONS:See Below ALLERGIES:See Below VITALS:See Below PHYSICAL EXAMINATION: GENERAL: alert, well appearing, well nourished, no distress, non-toxic EYE EXAM: normal conjunctiva, PERRL and EOM's grossly intact OROPHARYNX: no exudate, no erythema, lips, buccal mucosa, and tongue normal and mucous membranes are moist NECK: supple, no nuchal rigidity, no adenopathy, non-tender LUNGS: Clear to auscultation. Normal chest wall mechanics, no w/r/r HEART: no murmurs, S1 normal and S2 normal ABDOMEN: abdomen soft, non-tender, normo-active bowel sounds, no masses, no rebound or guarding. RECTAL: Rectal exam performed at bedside with IRAIDA Eric, no obvious external hemorrhoids or anal fissure, melanotic stool noted on my gloved hand following rectal exam which was heme positive on guaiac testing BACK: Back is symmetrical on inspection and there is no deformity, no midline tenderness, no CVA tenderness. SKIN: no rashes, petechiae, orbruising; pallor UPPER EXTREMITIES: upper extremities are grossly normal. FROM, nml pulses b/l. LOWER EXTREMITIES: No pitting edema. FROM, nml pulses b/l. NEURO EXAM: Normal sensorium, cranial nerves II-XII grossly intact, normal speech, no facial droop,nogross weakness of arms, no gross weakness of legs. Gross sensation intact. No ataxia. Vital Signs: reviewed and remarkable Differential Diagnosis: diverticulosis, AVM, coagulopathy, colitis, inflammatory bowel disease, malignancy, esophagitis, peptic ulcer disease, variceal bleed, gastritis, hemorrhoids, as well as others were entertained. MEDICAL DECISION MAKING: THis is a 74 yo female who presents to the ER with concern for dyspnea on exertion and increased weakness/fatigue over several weeks as well as melanotic stools. No hx of GI bleed or PUD. She does use asa and brilinta due to hx of cardiac stents. She was noted to be significantly hypotensive on arrival. Labs drawn and sent, IV established, EKG and CXR performed and interpreted at bedside, and patient placed on telemetry. she was started on IVF bolus. Labs reassuring and in light of symptoms I was concerned first cbc wasn't accurate so another was drawn and sent. Due to persistent hypotension, she was sent for CT chest and a/p and no other acute pathology noted. BP slowly to improve and so a second IVf bolus added. Stool positive for blood on bedside testing. Protonix bolus/drip added. Case discussed with the hospitalist team for additional evaluation and mgmt. Patient updated on all results and was in agreement with the plan. Consultation(s): 1525: Discussed with Dr. Morales, [facility] hospitalist team, for additional evaluation and management. ER Treatment Provided: See below Diagnostics Interpreted By Me: -ECG: Normal sinus at 87, leftward axis, normal intervals, no acute ST/T wave changes -Cardiac Monitoring: An order was placed for continuous cardiac monitoring. The monitor shows a rate of 70 with normal sinus rhythm. -Laboratory studies: As stated above and show below. -Imaging studies: CT a/p - no perf, no sbo Triage Nursing Note Reviewed Prior/Outside Records Reviewed Critical Care: Critical care of 52 min performed to assess and manage high likelihood of life-threatening hypotension and GI bleed, involving labs and imaging performed with assessment to evaluate XX diagnosis] with frequent reassessment. This time includes bedside time, treatment discussions with patient/family/consultants, documentation time and excludes procedure time. Past Med/Surg History Problem List (Updated 07/31/24 @ 12:36 by Alena Frost MD) ROSARIO (dyspnea on exertion) Acute kidney injury Symptomatic anemia (Acute) Acute GI bleeding (Acute) Hypotension (Acute) Intravascular volume depletion Black stools Hypotension Osteoarthritis of right knee CAD (coronary artery disease) Osteoarthritis of left knee Status post insertion of drug-eluting stent into left anterior descending (LAD) artery Antiplatelet or antithrombotic long-term use Family history of premature coronary heart disease Dyspnea on minimal exertion Urinary urgency Left kidney mass Atypical chest pain Diabetes mellitus, type 2 (Chronic) DIET CONTROLLED CKD (chronic kidney disease) stage 3, GFR 30-59 ml/min (Chronic) Lumbar radicular pain (Chronic) Postlaminectomy syndrome of lumbosacral region (Chronic) L2-S1 posterior fusion 03/2016 Anxiety (Chronic) GERD (gastroesophageal reflux disease) (Chronic) controlled, stable per pt Hypertension (Chronic) Hyperlipidemia (Chronic) Medical History Gout Anxiety Post laminectomy syndrome L2-S1 posterior fusion 03/2016 CKD (chronic kidney disease), stage III Diabetes Dyspnea on minimal exertion recent stress/echo done (06/2024)>> to be evaluated by pulmonolgy, unsure when/who Antiplatelet or antithrombotic long-term use Status post insertion of drug-eluting stent into left anterior descending (LAD) artery (09/2023) CAD (coronary artery disease) follows w/ Dr Mathur Osteoarthritis GERD (gastroesophageal reflux disease) Fatigue Abnormal pharmacologic myocardial perfusion study Diverticulitis hx Urinary urgency Hydronephrosis, right hx History of blood transfusion Peripheral neuropathy hands and feet Nodule of kidney CT SCAN YEARLY TO EVALUATE SIZE/GROWTH History of kidney stones Prolapsed bladder History of depression History of anxiety Hypertension controlled, stable per pt Hyperlipidemia History of COVID-19 X 2 *LAST TIME MARCH 2022>A LINGERING COUGH FROM TIME TO TIME SINCE LAST DX Chronic low back pain Surgical History Hx of cardiac catheterization abnormal stress- x 1 stent History of surgery TEMPORARY SPINAL CORD STIMULATOR IMPLANTED *PULLED OUT/NOT CURRENLTY INTACT History of cystoscopy KIDNEY STONE REMOVAL History of colonoscopy [place] teeth removed History of tonsillectomy H/O rotator cuff surgery RT Previous back surgery L2-S1 posterior fusion (03/2016) H/O: hysterectomy H/O cardiac radiofrequency ablation TACHYCARDIA TX>OVER 15 YEARS AGO Family History Other No family history of adverse response to anesthesia No pertinent family history Social History Smoking Status: Never smoker Second Hand Exposure: No; Do You Dip or Chew Tobacco: No; Hx Alcohol Use: No Hx Substance Use: No Preferred Language: Japanese Communication Ability: Effective Visual Impairment: Limited Hearing Ability: Normal Director Career Required: No Beliefs That Will Affect Care: None marital status: Current Living Situation: Spouse and Family Current Living Situation Comment: lives with and son current occupational status: retired Other Information That Helps Us Care for You: Yes Feels Safe at Home: Yes Assistive Devices: Walker Assistive Devices Comment: uses walker at times Allergies Allergies Allergy/AdvReac Type Severity Reaction Status Date / Time prednisone AdvReac Intermediate increased Verified 07/30/24 11:02 blood pressure Home Meds Home Medications Medication Instructions Recorded Confirmed aspirin 81 mg tablet,delayed 81 mg PO HS 10/27/19 07/30/24 release omeprazole 40 mg capsule,delayed 40 mg PO QAM 10/27/19 07/30/24 release lorazepam 0.5 mg tablet 0.5 mg PO DAILY PRN Anxiety 04/05/20 07/30/24 allopurinol 100 mg tablet 100 mg PO QAM 12/21/21 07/30/24 cholecalciferol (vitamin D3) 50 50 mcg PO HS 09/04/22 07/30/24 mcg (2,000 unit) capsule (Vitamin D3) cyclobenzaprine 10 mg tablet 10 mg PO TID PRN MUSCLE SPASMS 09/04/22 07/30/24 donepezil 10 mg tablet (Aricept) 10 mg PO HS 09/04/22 07/30/24 sennosides 8.6 mg tablet (senna) 8.6 mg PO BID PRN Constipation 09/04/22 07/30/24 rosuvastatin 20 mg tablet 20 mg PO HS 08/07/23 07/30/24 losartan 100 mg tablet 100 mg PO QAM 09/25/23 07/30/24 albuterol sulfate 90 mcg/actuation 2 puff inhalation .EVERY 4-6 HOURS 07/30/24 07/30/24 aerosol inhaler PRN COUGH,SOB,WHEEZE amlodipine 5 mg tablet 5 mg PO QAM 07/30/24 07/30/24 coenzyme Q10 50 mg capsule (Co 50 mg PO DAILY 07/30/24 07/30/24 Q-10) duloxetine 30 mg capsule,delayed 30 mg PO HS 07/30/24 07/30/24 release fluticasone furoate 50 1 ea inhalation UD 07/30/24 07/30/24 mcg-vilanterol 25 mcg/dose inhalation powder (Breo Ellipta) metoprolol succinate 100 mg 100 mg PO QAM 07/30/24 07/30/24 tablet,extended release 24 hr oxybutynin chloride 5 mg 5 mg PO HS 07/30/24 07/30/24 tablet,extended release 24 hr tirzepatide 7.5 mg/0.5 mL 7.5 mg subcut WK 07/30/24 07/30/24 subcutaneous pen injector (Kylah) Previous Rx's Medication Instructions Recorded nitroglycerin 0.4 mg sublingual 0.4 mg sublingual Q5M PRN chest 08/23/23 tablet pain #25 tabs ticagrelor 90 mg tablet (Brilinta) 90 mg PO BID #180 tabs 07/25/24 Results & Data (ED) Vital Signs Vital Signs - 24 hr 07/30/24 12:21 07/30/24 12:35 07/30/24 12:39 Temperature 36.8 C Temperature Source Temporal Artery Scan Pulse Rate 90 79 Pulse Rate [Apical] 81 Pulse Rate from SpO2 Sensor Respiratory Rate 20 15 Respiratory Effort / Characteristics Non-Labored Spontaneous Non-Labored Respiratory Depth Normal Normal Respiratory Pattern Regular Blood Pressure 66/56 L Blood Pressure [Left Arm] 95/70 L Blood Pressure Mean 59 Blood Pressure Mean [Left Arm] 78 Pulse Oximetry 100 97 Oxygen Delivery Method Room Air Room Air Sepsis Recent Fever Within 48 Hours No Sepsis New/Unexplained Change in Mental Status N/A Sepsis Action Taken by Nursing No Action Required 07/30/24 12:45 07/30/24 13:11 07/30/24 13:13 Temperature Temperature Source Pulse Rate 81 72 Pulse Rate [Apical] 73 Pulse Rate from SpO2 Sensor Respiratory Rate 14 13 14 Respiratory Effort / Characteristics Non-Labored Spontaneous Respiratory Depth Normal Respiratory Pattern Blood Pressure 90/57 L 91/68 L Blood Pressure [Left Arm] 91/68 L Blood Pressure Mean 65 73 Blood Pressure Mean [Left Arm] 75 Pulse Oximetry 96 97 98 Oxygen Delivery Method Room Air Sepsis Recent Fever Within 48 Hours Sepsis New/Unexplained Change in Mental Status Sepsis Action Taken by Nursing 07/30/24 13:45 07/30/24 14:00 07/30/24 14:15 Temperature Temperature Source Pulse Rate 74 68 72 Pulse Rate [Apical] Pulse Rate from SpO2 Sensor Respiratory Rate 14 15 15 Respiratory Effort / Characteristics Respiratory Depth Respiratory Pattern Blood Pressure 88/62 L 96/62 L 106/63 Blood Pressure [Left Arm] Blood Pressure Mean 69 79 90 Blood Pressure Mean [Left Arm] Pulse Oximetry 98 97 97 Oxygen Delivery Method Room Air Room Air Sepsis Recent Fever Within 48 Hours Sepsis New/Unexplained Change in Mental Status Sepsis Action Taken by Nursing 07/30/24 14:30 07/30/24 14:33 07/30/24 14:45 Temperature Temperature Source Pulse Rate 74 71 69 Pulse Rate [Apical] Pulse Rate from SpO2 Sensor 71 Respiratory Rate 16 15 15 Respiratory Effort / Characteristics Respiratory Depth Respiratory Pattern Blood Pressure 101/62 112/72 Blood Pressure [Left Arm] Blood Pressure Mean 76 79 Blood Pressure Mean [Left Arm] Pulse Oximetry 96 95 96 Oxygen Delivery Method Sepsis Recent Fever Within 48 Hours Sepsis New/Unexplained Change in Mental Status Sepsis Action Taken by Nursing Laboratory Data 08/01/24 07:53 08/01/24 07:53 Lab Results 07/30/24 07/30/24 07/30/24 Range/Units 12:34 12:40 12:40 WBC 10.04 (4.8-10.8) K/ul RBC 3.87 L (4.20-5.40) M/uL Hgb 11.5 L (12.0-16.0) g/dl Hct 36.3 L (37.0-47.0) % MCV 93.8 (80.0-100.0) fL MCH 29.7 (25.0-34.0) pg MCHC 31.7 L (32.0-36.0) g/dL RDW Std Deviation 59.1 H (36.4-46.3) fL RDW Coeff of Sari 17.3 H (11.5-14.5) % Plt Count 265 (130-400) K/uL MPV 10.8 (9.4-12.4) fL Immature Gran % (Auto) 0.5 % Neut % (Auto) 69.9 % Lymph % (Auto) 22.5 % Rice % (Auto) 5.6 % Eos % (Auto) 1.0 % Baso % (Auto) 0.5 % Neut # (Auto) 7.02 H (1.40-6.50) K/uL Lymph # (Auto) 2.26 (1.20-3.40) K/uL Rice # (Auto) 0.56 (0.11-0.59) K/uL Eos # (Auto) 0.10 (0.00-0.50) K/uL Baso # (Auto) 0.05 (0.00-0.20) K/uL Immature Gran # (Auto) 0.05 (0.01-0.20) K/uL Absolute Nucleated RBC 0.04 (0.00-0.12) K/uL Nucleated RBC % (auto) 0.4 % PT 10.7 (9.0-12.0) Seconds INR 1.0 (0.9-1.1) APTT 24 (21-31) Seconds PTT Ratio 0.9 Sodium 137 (136-145) mmol/L Potassium 4.2 (3.5-5.1) mmol/L Chloride 107 (98-107) mmol/L Carbon Dioxide 21 (21-32) mmol/L Anion Gap 9 (3-11) BUN 35 H (6-23) mg/dl Creatinine 1.31 H (0.6-1.2) mg/dl Est Cr Clr Drug Dosing 39.0 ml/min eGFR 42.23 BUN/Creatinine Ratio 26.7 H (10-20) Glucose 161 H (70-99(Fasting)) mg/dl Calcium 9.2 (8.6-10.3) mg/dl Magnesium 2.1 (1.7-2.4) mg/dl Total Bilirubin 0.8 (0.2-1.0) mg/dl AST 19 (13-39) U/L ALT 21 (7-52) U/L Alkaline Phosphatase 51 (34-104) U/L Troponin I High Sens 5.0 (0-14) pg/ml Total Protein 6.8 (6.0-8.3) gm/dl Albumin 4.2 (3.4-5.0) gm/dl Globulin 2.6 (2.5-4.0) gm/dl Albumin/Globulin Ratio 1.6 (0.9-2) Lipase 112 H (11-82) U/L TSH 3.792 (0.300-4.500) uIu/ml Urine Color Urine Appearance (Clear) Urine pH (4.5-7.5) Ur Specific [place] (1.000-1.030) Urine Protein (Negative) Urine Glucose (UA) (Negative) Urine Ketones (Negative) Urine Blood (Negative) Urine Nitrite (Negative) Urine Bilirubin (Negative) Urine Urobilinogen (Negative) Ur Leukocyte Esterase (Negative) Blood Type Cancelled O Positive Antibody Screen Cancelled Crossmatch 07/30/24 07/30/24 07/30/24 Range/Units 12:40 14:06 15:56 WBC 7.69 (4.8-10.8) K/ul RBC 3.14 L (4.20-5.40) M/uL Hgb 9.5 L (12.0-16.0) g/dl Hct 29.9 L (37.0-47.0) % MCV 95.2 (80.0-100.0) fL MCH 30.3 (25.0-34.0) pg MCHC 31.8 L (32.0-36.0) g/dL RDW Std Deviation 59.8 H (36.4-46.3) fL RDW Coeff of Sari 17.3 H (11.5-14.5) % Plt Count 173 (130-400) K/uL MPV 10.6 (9.4-12.4) fL Immature Gran % (Auto) % Neut % (Auto) % Lymph % (Auto) % Rice % (Auto) % Eos % (Auto) % Baso % (Auto) % Neut # (Auto) (1.40-6.50) K/uL Lymph # (Auto) (1.20-3.40) K/uL Rice # (Auto) (0.11-0.59) K/uL Eos # (Auto) (0.00-0.50) K/uL Baso # (Auto) (0.00-0.20) K/uL Immature Gran # (Auto) (0.01-0.20) K/uL Absolute Nucleated RBC 0.02 (0.00-0.12) K/uL Nucleated RBC % (auto) 0.3 % PT (9.0-12.0) Seconds INR (0.9-1.1) APTT (21-31) Seconds PTT Ratio Sodium (136-145) mmol/L Potassium (3.5-5.1) mmol/L Chloride (98-107) mmol/L Carbon Dioxide (21-32) mmol/L Anion Gap (3-11) BUN (6-23) mg/dl Creatinine (0.6-1.2) mg/dl Est Cr Clr Drug Dosing ml/min eGFR BUN/Creatinine Ratio (10-20) Glucose (70-99(Fasting)) mg/dl Calcium (8.6-10.3) mg/dl Magnesium (1.7-2.4) mg/dl Total Bilirubin (0.2-1.0) mg/dl AST (13-39) U/L ALT (7-52) U/L Alkaline Phosphatase (34-104) U/L Troponin I High Sens (0-14) pg/ml Total Protein (6.0-8.3) gm/dl Albumin (3.4-5.0) gm/dl Globulin (2.5-4.0) gm/dl Albumin/Globulin Ratio (0.9-2) Lipase (11-82) U/L TSH (0.300-4.500) uIu/ml Urine Color Yellow Urine Appearance Clear (Clear) Urine pH 6.5 (4.5-7.5) Ur Specific [place] 1.041 H (1.000-1.030) Urine Protein Negative (Negative) Urine Glucose (UA) Negative (Negative) Urine Ketones Negative (Negative) Urine Blood Negative (Negative) Urine Nitrite Negative (Negative) Urine Bilirubin Negative (Negative) Urine Urobilinogen Negative (Negative) Ur Leukocyte Esterase Negative (Negative) Blood Type Antibody Screen NEGATIVE Crossmatch See Detail Administered Medications Acetaminophen (Acetaminophen 325 Mg Tab) 650 mg PO Q4H PRN PRN Reason: Pain or Fever Stop: 08/31/24 14:49 Last Admin: 08/01/24 15:02 Dose: 650 mg Documented By: [id number] Duloxetine HCl (Duloxetine Hcl 30 Mg Cap) 30 mg PO HS EWA Stop: 08/29/24 20:59 Last Admin: 07/31/24 20:37 Dose: 30 mg Documented By: Admin: 07/30/24 22:18 Dose: Not Given Documented By: JAYLA Fluticasone/Vilanterol (Fluticasone/Vilanterol 100/25mcg 14 Puffs/Inhaler) 1 puffs INH DAILY EWA Stop: 08/30/24 08:59 Last Admin: 08/01/24 08:07 Dose: 1 puffs Documented By: [id number] Admin: 07/31/24 08:40 Dose: 1 puffs Documented By: LOGAN Pantoprazole Sodium 40 mg/ (Dextrose) 100 mls @ 20 mls/hr IV Q5H EWA Stop: 08/29/24 15:14 Last Admin: 08/01/24 14:42 Dose: 8 mg/hr, 20 mls/hr Documented By: [id number] Infusion: 08/01/24 13:50 Dose: Infused Documented By: [id number] Admin: 08/01/24 08:50 Dose: 8 mg/hr, 20 mls/hr Documented By: [id number] Infusion: 08/01/24 08:50 Dose: Infused Documented By: [id number] Infusion: 08/01/24 08:04 Dose: 0 mg/hr, 0 mls/hr Documented By: [id number] Admin: 08/01/24 03:15 Dose: 8 mg/hr, 20 mls/hr Documented By: [email or web address] Infusion: 08/01/24 02:37 Dose: Infused Documented By: [email or web address] Admin: 07/31/24 21:37 Dose: 8 mg/hr, 20 mls/hr Documented By: Infusion: 07/31/24 21:37 Dose: Infused Documented By: Admin: 07/31/24 16:42 Dose: 8 mg/hr, 20 mls/hr Documented By: Infusion: 07/31/24 16:30 Dose: Infused Documented By: Admin: 07/31/24 11:30 Dose: 8 mg/hr, 20 mls/hr Documented By: Infusion: 07/31/24 10:57 Dose: Infused Documented By: Admin: 07/31/24 05:57 Dose: 8 mg/hr, 20 mls/hr Documented By: Infusion: 07/31/24 05:57 Dose: Infused Documented By: Admin: 07/31/24 01:08 Dose: 8 mg/hr, 20 mls/hr Documented By: Infusion: 07/31/24 01:08 Dose: Infused Documented By: Admin: 07/30/24 21:03 Dose: 8 mg/hr, 20 mls/hr Documented By: Infusion: 07/30/24 20:28 Dose: Infused Documented By: Admin: 07/30/24 15:28 Dose: 8 mg/hr, 20 mls/hr Documented By: GEOVANI Lorazepam (Lorazepam 2 Mg/1 Ml Vial) 0.5 mg IV Q8H PRN PRN Reason: Anxiety/Agitation Stop: 08/29/24 20:39 Last Admin: 07/31/24 20:35 Dose: 0.5 mg Documented By: Admin: 07/30/24 23:11 Dose: 0.5 mg Documented By: MCS Oxybutynin Chloride (Oxybutynin Chloride Xl 5 Mg Tabcr) 5 mg PO HS EWA Stop: 08/29/24 20:59 Last Admin: 07/31/24 20:37 Dose: 5 mg Documented By: Admin: 07/30/24 22:18 Dose: Not Given Documented By: MCS Discontinued Medications Sodium Chloride (Nss) 1,000 mls @ 999 mls/hr IV .Q1H1M ONE Stop: 07/30/24 13:39 Last Infusion: 07/30/24 13:56 Dose: Infused Documented By: Admin: 07/30/24 12:55 Dose: 999 mls/hr Documented By: GEOVANI Sodium Chloride (Nss) 1,000 mls @ 999 mls/hr IV .Q1H1M ONE Stop: 07/30/24 15:06 Last Infusion: 07/30/24 15:30 Dose: Infused Documented By: Admin: 07/30/24 14:11 Dose: 999 mls/hr Documented By: GEOVANI Pantoprazole Sodium 80 mg/ (Dextrose) 120 mls @ 480 mls/hr IV NOW ONE Stop: 07/30/24 15:00 Last Infusion: 07/30/24 15:25 Dose: Infused Documented By: Admin: 07/30/24 15:08 Dose: 480 mls/hr Documented By: NICHOLAS Lactated Ringer's (Lr) 1,000 mls @ 100 mls/hr IV .Q10H EWA Stop: 07/31/24 17:14 Last Infusion: 07/31/24 11:30 Dose: Infused Documented By: Admin: 07/31/24 03:47 Dose: 100 mls/hr Documented By: Infusion: 07/31/24 03:47 Dose: Infused Documented By: Admin: 07/30/24 18:11 Dose: 100 mls/hr Documented By: GEOVANI Ioversol (Optiray 320 125ml) 119 ml IV ONCE ONE Stop: 07/30/24 13:32 Last Admin: 07/30/24 13:31 Dose: 119 ml Documented By: ELIZABETH Pantoprazole Sodium (Pantoprazole Bolus/Drip) 1 each IV NOW STA Stop: 07/30/24 14:47 Last Admin: 07/30/24 15:30 Dose: Not Given Documented By: GEOVANI Imaging Data Radiologist's Impression: Chest X-Ray 07/30/24 12:39 XR chest 1V portable CLINICAL HISTORY: Shortness of breath. COMPARISON STUDY: Chest radiograph September 11, 2022. Chest CT December 21, 2021.. FINDINGS: Lung volumes are normal. There is no consolidation. Linear left basilar densities favor atelectasis. There is no pneumothorax or pleural effusion. Cardiac size is normal. Mediastinal contours are normal. There is no evidence for pulmonary edema. Upper findings within the spine are partially imaged. IMPRESSION: No acute cardiopulmonary findings. ACT 112: Negative or not required by law. Electronically signed by: Jose Schmidt M.D. 07/30/2024 1:11 PM Abdomen/Pelvis CT 07/30/24 13:12 EXAM: CT Abdomen and Pelvis With Intravenous Contrast INDICATION: Melena. Hypotension. TECHNIQUE: Axial computed tomography images of the abdomen and pelvis with intravenous contrast. Sagittal and coronal reformatted images were created and reviewed. This CT exam was performed using one or more of the following dose reduction techniques: automated exposure control, adjustment of the mA and/or kV according to patient size, and/or use of iterative reconstruction technique. CONTRAST: 119ml of Optiray 320 was administered intravenously. COMPARISON: No relevant prior studies available. FINDINGS: Limitations: None. Lung bases: No abnormality noted. Pleural space: No visualized pleural effusion or pneumothorax. Heart: No abnormality noted. Mediastinum: No abnormality noted. ABDOMEN: Liver: No abnormality noted. Gallbladder and bile ducts: No calcified stones or surrounding fluid. Pancreas: Homogeneous enhancement. No mass, inflammation or ductal dilation. Spleen: No significant abnormality noted. Adrenals: No significant abnormality noted. Kidneys and ureters: Bilateral renal cortical scarring present. No solid nodule, stones or hydronephrosis. Probable tiny cysts too small to characterize. No further assessment required. Stomach and bowel: Few scattered colonic diverticula noted. No diverticulitis. Incompletely distended stomach without gross abnormality. PELVIS: Appendix: Well seen and appears normal. Bladder: There is mild bladder prolapse. Reproductive: Hysterectomy. 11 mm benign cyst left ovary. ABDOMEN and PELVIS: Intraperitoneal space: No free air. No significant fluid collection. Bones/joints: No acute changes. Soft tissues: Umbilical hernia containing fat. Vasculature: Atherosclerotic calcification of the aorta and branches. No aneurysm. Lymph nodes: No pathologically enlarged lymph nodes. IMPRESSION: 1. Incompletely distended suboptimally assessed stomach. There is no intestinal inflammation. 2. Few scattered colonic diverticula without diverticulitis. 3. Mild bladder prolapse. ACT 112: Negative or not required by law. Electronically signed by Mallorie Cazares 07-30-2024 2:13 PM Chest CTA 07/30/24 13:12 CT ANGIOGRAPHY OF THE CHEST, PULMONARY EMBOLUS PROTOCOL CLINICAL HISTORY: Hypotension. Melena. Evaluate for pulmonary embolus. COMPARISON STUDY: Chest CT December 21, 2021. Chest radiograph performed earlier today. TECHNIQUE: Following IV administration of 119 mL of Optiray, helical axial images of the chest were obtained utilizing the pulmonary embolus protocol. Maximal intensity projections and sagittal and coronal reformats were viewed on an independent 3D workstation. IV contrast was administered without complication. Automated exposure control was utilized for the study. A dose lowering technique was utilized adhering to the principles of ALARA. CT DOSE: 2289.39 mGy.cm FINDINGS: No pulmonary emboli are identified. There is no thoracic aortic dissection. Size of the heart is normal. There is moderate coronary artery calcification. The central airways are patent. There is no pneumothorax or pleural effusion. No consolidation to suggest pneumonia. There are no pulmonary nodules. Subpleural ground glass opacities favor atelectasis. Moderate amount of hyperdense material within the stomach is present. IMPRESSION: 1. No pulmonary emboli identified. 2. No acute intrathoracic findings. 3. Moderate amount of hyperdense material within the stomach. This could represent ingested contents. However, clot within the stomach could appear similar. ACT 112: Negative or not required by law. Electronically signed by: Jose Schmidt M.D. 07/30/2024 2:05 PM Discharge Plan Visit Data Chief Complaint: Hypotension Stated Complaint: HIGH BLOOD PRESSURE ED Provider: oCnnie Harris Discharge Problem: Hypotension, Acute GI bleeding, Symptomatic anemia Patient Disposition: Admitted As Inpatient Discharge Instructions Interventions: ED Discharge Assessment Last Done: 07/30/24 19:56
[2024-07-30] MEDS: PANTOprazole 80 MG in DEXTROSE 5% 100 ML IV ONE (15:08)
[2024-07-30] MEDS: PANTOprazole 40 MG in DEXTROSE 5% MINI-B 100 ML IV SCH (15:28)
--- NOTE | 2024-07-30 15:28 | History & Physical Report ---
Date of Service July 30, 2024 Assessment & Plan (1) Acute GI bleeding: Plan: Patient with lightheadedness, SOB since May, dark stool x 2 weeks, started Mounjaro 2-3 weeks ago; ? SOB 2/2 Brilinta (has been on medication for approximately 1 year per patient-September); has been evaluated by cardiology as well as pulmonology for etiology of SOB. - Hemodynamically stable at time of visit; initially hypotensive on arrival to ED requiring fluid resuscitation x 2 L-resolved - EKG on admission showing NSR w/ rate ~ 90bpm - H/H on admission 11.3/36.3 -> 9.5/29.9; 1L fluid given between H&H testing; ? Dilutional results - Continue IVF - LR - CMP revealing VINCE; specific attention to BUN by following labs AM - CTAP incompletely distended suboptimally assessed stomach, no intestinal inflammation, few scattered colonic diverticula without diverticulitis, mild bladder prolapse - Chest CTA revealed moderate amount of hyperdense material within the stomach could represent ingested contents, however, clots within the stomach could appear similar - Hemoccult positive per ED - HOLD ASA + Brilinta - NPO - H&H q6hr - CK pending - BMP am - Protonix drip- continue - GI consulted Appreciate GI input and recs (2) CAD (coronary artery disease): Plan: History of CAD, follows with Dr. Mathur - Stent to LAD; On ASA + Brilinta- HOLD - Rosuvastatin (dyslipidemia) - hold - HOLD Amlodipine and Losartan per outpatient cardiology note recommendations - HOLD metoprolol - H&H as above (3) Diabetes mellitus, type 2: Plan: H/o DMT2 - Diet controlled as well as Mounjaro weekly - Most recent A1C 09/2022 at 6.2% - No SSI at this time, no glucose checks Plan Anxiety- Lorazepam oral SWITCHED to IV prn anxiety HOLDING following oral meds- Allopurinol, amlodipine, ASA, Vit D3, cyclobenzaprine, donepezil, losartan, metoprolol, omeprazole, rosuvastatin, brilinta Dispo: Admit Diet: NPO VTE Prophylaxis: HOLD 2/ bleeding Code: Full Admission and Anticipated Discharge Date Admission Date: 07/30/2024 History of Present Illness Chief Complaint: SOB, hypotension Primary Care Provider: TMEI Torre 77-year-old female presenting for weeks of lightheadedness, shortness of breath, black stool. ED course: Initial CBC WBC 10.04, RBC 3.87, H&H 11.5/36.3, MCHC 31.7, RDW 59.1, neutrophils elevated 7.02, repeat CBC WBC 7.69, RBC 3.14, H&H 9.5/29.9, MCHC 31.8, RDW 59.8, neutrophils 7.02; PT/INR WNL; CMP BUN 35 creatinine 1.31, BUN/creatinine ratio 26.7, glucose 161; lipase 112.; CXR without acute cardiopulmonary findings; CTAP incompletely distended suboptimal assess stomach, no intestinal inflammation, few scattered colonic diverticula without diverticulitis, mild bladder prolapse; chest CTA no pulmonary emboli identified, no acute intrathoracic findings, moderate amount of hyperdense material within the stomach could represent ingested contents, however clot within the stomach could appear similar; Hemoccult positive; EKG normal sinus rhythm rate around 90.; Provided with 2 L NSS, pantoprazole IV. Patient is 77-year-old female PMHx CAD s/p stent to LAD, T2DM, GERD, hypertension, hyperlipidemia, and anxiety senting for worsening shortness of breath, lightheadedness, and black stools for weeks, also found be hypotensive on arrival. Patient notes that the shortness of breath has been ongoing since approximately May but had worsened approximately 2 weeks ago. Notes shortness of breath with any exertion, even when she is trying to shower. Has caused her to feel very lightheaded and have to sit down as to not fall over. Previously evaluated by ball points inspector and had a EGD and stress echo completed last month. No chest pain, resting LVEF moderate LVH, LV size and systolic function normal. Additionally has noticed no riley blood. No associated abdominal pain or change in stool consistency, no N/V. Not taking Pepto-Bismol or iron. Notes that the only change within the past few weeks has been starting Mounjaro. Denying chest pain, palpitations, headache, vision changes, abdominal pain, diarrhea/constipation, hematuria, numbness/tingling, or LUTS. Never had this happen before. States that she took all a.m. medications. Please see Dr. Morales's attestation for adjustments/additions to treatment plan. Allergies Allergy/AdvReac Type Severity Reaction Status Date / Time prednisone AdvReac Intermediate increased Verified 07/30/24 11:02 blood pressure Home Medications Medication Instructions Recorded Confirmed Type aspirin 81 mg tablet,delayed 81 mg PO HS 10/27/19 07/30/24 History release omeprazole 40 mg capsule,delayed 40 mg PO QAM 10/27/19 07/30/24 History release lorazepam 0.5 mg tablet 0.5 mg PO DAILY PRN Anxiety 04/05/20 07/30/24 History allopurinol 100 mg tablet 100 mg PO QAM 12/21/21 07/30/24 History cholecalciferol (vitamin D3) 50 50 mcg PO HS 09/04/22 07/30/24 History mcg (2,000 unit) capsule (Vitamin D3) cyclobenzaprine 10 mg tablet 10 mg PO TID PRN MUSCLE SPASMS 09/04/22 07/30/24 History donepezil 10 mg tablet (Aricept) 10 mg PO HS 09/04/22 07/30/24 History sennosides 8.6 mg tablet (senna) 8.6 mg PO BID PRN Constipation 09/04/22 07/30/24 History rosuvastatin 20 mg tablet 20 mg PO HS 08/07/23 07/30/24 History nitroglycerin 0.4 mg sublingual 0.4 mg sublingual Q5M PRN chest 08/23/23 07/30/24 Rx tablet pain #25 tabs losartan 100 mg tablet 100 mg PO QAM 09/25/23 07/30/24 History ticagrelor 90 mg tablet (Brilinta) 90 mg PO BID #180 tabs 07/25/24 07/30/24 Rx albuterol sulfate 90 mcg/actuation 2 puff inhalation .EVERY 4-6 HOURS 07/30/24 07/30/24 History aerosol inhaler PRN COUGH,SOB,WHEEZE amlodipine 5 mg tablet 5 mg PO QAM 07/30/24 07/30/24 History coenzyme Q10 50 mg capsule (Co 50 mg PO DAILY 07/30/24 07/30/24 History Q-10) duloxetine 30 mg capsule,delayed 30 mg PO HS 07/30/24 07/30/24 History release fluticasone furoate 50 1 ea inhalation UD 07/30/24 07/30/24 History mcg-vilanterol 25 mcg/dose inhalation powder (Breo Ellipta) metoprolol succinate 100 mg 100 mg PO QAM 07/30/24 07/30/24 History tablet,extended release 24 hr oxybutynin chloride 5 mg 5 mg PO HS 07/30/24 07/30/24 History tablet,extended release 24 hr tirzepatide 7.5 mg/0.5 mL 7.5 mg subcut WK 07/30/24 07/30/24 History subcutaneous pen injector (Mounjaro) Past Med/Surg History Problem List (Updated 07/30/24 @ 16:37 by Ac Anderson PA-C) Acute kidney injury Symptomatic anemia (Acute) Acute GI bleeding (Acute) Hypotension (Acute) Intravascular volume depletion Black stools Hypotension Osteoarthritis of right knee CAD (coronary artery disease) Osteoarthritis of left knee Status post insertion of drug-eluting stent into left anterior descending (LAD) artery Antiplatelet or antithrombotic long-term use Family history of premature coronary heart disease Dyspnea on minimal exertion Urinary urgency Left kidney mass Atypical chest pain Diabetes mellitus, type 2 (Chronic) DIET CONTROLLED CKD (chronic kidney disease) stage 3, GFR 30-59 ml/min (Chronic) Lumbar radicular pain (Chronic) Postlaminectomy syndrome of lumbosacral region (Chronic) L2-S1 posterior fusion 03/2016 Anxiety (Chronic) GERD (gastroesophageal reflux disease) (Chronic) controlled, stable per pt Hypertension (Chronic) Hyperlipidemia (Chronic) Medical History Gout Anxiety Post laminectomy syndrome L2-S1 posterior fusion 03/2016 CKD (chronic kidney disease), stage III Diabetes Dyspnea on minimal exertion recent stress/echo done (06/2024)>> to be evaluated by pulmonolgy, unsure when/who Antiplatelet or antithrombotic long-term use Status post insertion of drug-eluting stent into left anterior descending (LAD) artery (09/2023) CAD (coronary artery disease) follows w/ Dr Mathur Osteoarthritis GERD (gastroesophageal reflux disease) Fatigue Abnormal pharmacologic myocardial perfusion study Diverticulitis hx Urinary urgency Hydronephrosis, right hx History of blood transfusion Peripheral neuropathy hands and feet Nodule of kidney CT SCAN YEARLY TO EVALUATE SIZE/GROWTH History of kidney stones Prolapsed bladder History of depression History of anxiety Hypertension controlled, stable per pt Hyperlipidemia History of COVID-19 X 2 *LAST TIME MARCH 2022>A LINGERING COUGH FROM TIME TO TIME SINCE LAST DX Chronic low back pain Surgical History Hx of cardiac catheterization abnormal stress- x 1 stent History of surgery TEMPORARY SPINAL CORD STIMULATOR IMPLANTED *PULLED OUT/NOT CURRENLTY INTACT History of cystoscopy KIDNEY STONE REMOVAL History of colonoscopy [place] teeth removed History of tonsillectomy H/O rotator cuff surgery RT Previous back surgery L2-S1 posterior fusion (03/2016) H/O: hysterectomy H/O cardiac radiofrequency ablation TACHYCARDIA TX>OVER 15 YEARS AGO Family History Other No family history of adverse response to anesthesia No pertinent family history Social History Smoking Status: Never smoker Second Hand Exposure: No; Do You Dip or Chew Tobacco: No; Hx Alcohol Use: No Hx Substance Use: No Preferred Language: Italian Communication Ability: Effective Visual Impairment: Limited Hearing Ability: Normal Head Cd Reactor Operator Required: No Beliefs That Will Affect Care: None marital status: Current Living Situation: Spouse Current Living Situation Comment: , SON AND DAUGHTER N LAW current occupational status: retired Feels Safe at Home: Yes Assistive Devices: Glasses and Walker Review of Systems Review of Systems: All systems reviewed & are unremarkable except as noted in Subjective Physical Exam Physical Exam: General: No acute distress Skin: Warm and dry Head: Normocephalic, atraumatic Eyes: PERRL, conjunctivae clear, sclera non-icteric ENT: External ear and ear canal without swelling; nose atraumatic; good dentition, tongue normal appearance, lips dry Neck: Supple, no LAD Cardio: RRR, no M/G/R, S1 and S2 normal Resp: No respiratory distress, Lungs CTA in all lobes bilaterally, no wheezes, rales, or rhonchi Abdomen: Soft, symmetric, nontender; No masses or hepatosplenomegaly; Bowel sounds normoactive MSK: No deformities; pulses palpable and equal; no edema. Neuro: Awake, alert; Sensation intact bilaterally; CN intact Psych: Appropriate mood and affect; good judgement and insight. 2 family members present in room at time of visit. Results & Data Results & Data Vital Signs (Past 12 Hours) Vital Signs Temp Pulse Pulse Resp BP BP Pulse Ox 07/30/24 14:45 69 15 112/72 96 07/30/24 14:33 71 15 95 07/30/24 14:30 74 16 101/62 96 07/30/24 14:15 72 15 106/63 97 07/30/24 14:00 68 15 96/62 L 97 07/30/24 13:45 74 14 88/62 L 98 07/30/24 13:13 73 14 91/68 L 98 07/30/24 13:11 72 13 91/68 L 97 07/30/24 12:45 81 14 90/57 L 96 07/30/24 12:39 81 15 95/70 L 97 07/30/24 12:35 79 07/30/24 12:21 36.8 C 90 20 66/56 L 100 O2 Del Method 07/30/24 14:45 07/30/24 14:33 07/30/24 14:30 07/30/24 14:15 Room Air 07/30/24 14:00 07/30/24 13:45 Room Air 07/30/24 13:13 Room Air 07/30/24 13:11 07/30/24 12:45 07/30/24 12:39 Room Air 07/30/24 12:35 07/30/24 12:21 Room Air Laboratory Results 07/30/24 07/30/24 07/30/24 14:06 12:40 12:40 WBC 7.69 RBC 3.14 L Hgb 9.5 L Hct 29.9 L MCV 95.2 MCH 30.3 MCHC 31.8 L RDW Std Deviation 59.8 H RDW Coeff of Sari 17.3 H Plt Count 173 MPV 10.6 Immature Gran % (Auto) Neut % (Auto) Lymph % (Auto) Mcdowell % (Auto) Eos % (Auto) Baso % (Auto) Neut # (Auto) Lymph # (Auto) Mcdowell # (Auto) Eos # (Auto) Baso # (Auto) Immature Gran # (Auto) Absolute Nucleated RBC 0.02 Nucleated RBC % (auto) 0.3 PT INR APTT PTT Ratio Sodium Potassium Chloride Carbon Dioxide Anion Gap BUN Creatinine Est Cr Clr Drug Dosing eGFR BUN/Creatinine Ratio Glucose Calcium Magnesium Total Bilirubin AST ALT Alkaline Phosphatase Troponin I High Sens Total Protein Albumin Globulin Albumin/Globulin Ratio Lipase TSH Blood Type O Positive Antibody Screen NEGATIVE Cancelled 07/30/24 07/30/24 12:40 12:34 WBC 10.04 RBC 3.87 L Hgb 11.5 L Hct 36.3 L MCV 93.8 MCH 29.7 MCHC 31.7 L RDW Std Deviation 59.1 H RDW Coeff of Sari 17.3 H Plt Count 265 MPV 10.8 Immature Gran % (Auto) 0.5 Neut % (Auto) 69.9 Lymph % (Auto) 22.5 Mcdowell % (Auto) 5.6 Eos % (Auto) 1.0 Baso % (Auto) 0.5 Neut # (Auto) 7.02 H Lymph # (Auto) 2.26 Mcdowell # (Auto) 0.56 Eos # (Auto) 0.10 Baso # (Auto) 0.05 Immature Gran # (Auto) 0.05 Absolute Nucleated RBC 0.04 Nucleated RBC % (auto) 0.4 PT 10.7 INR 1.0 APTT 24 PTT Ratio 0.9 Sodium 137 Potassium 4.2 Chloride 107 Carbon Dioxide 21 Anion Gap 9 BUN 35 H Creatinine 1.31 H Est Cr Clr Drug Dosing 39.0 eGFR 42.23 BUN/Creatinine Ratio 26.7 H Glucose 161 H Calcium 9.2 Magnesium 2.1 Total Bilirubin 0.8 AST 19 ALT 21 Alkaline Phosphatase 51 Troponin I High Sens 5.0 Total Protein 6.8 Albumin 4.2 Globulin 2.6 Albumin/Globulin Ratio 1.6 Lipase 112 H TSH 3.792 Blood Type Cancelled Antibody Screen Diagnostic Findings Chest X-Ray 07/30/24 12:39 XR chest 1V portable CLINICAL HISTORY: Shortness of breath. COMPARISON STUDY: Chest radiograph September 11, 2022. Chest CT December 21, 2021.. FINDINGS: Lung volumes are normal. There is no consolidation. Linear left basilar densities favor atelectasis. There is no pneumothorax or pleural effusion. Cardiac size is normal. Mediastinal contours are normal. There is no evidence for pulmonary edema. Upper findings within the spine are partially imaged. IMPRESSION: No acute cardiopulmonary findings. ACT 112: Negative or not required by law. Electronically signed by: Jose Schmidt M.D. 07/30/2024 1:11 PM Abdomen/Pelvis CT 07/30/24 13:12 EXAM: CT Abdomen and Pelvis With Intravenous Contrast INDICATION: Melena. Hypotension. TECHNIQUE: Axial computed tomography images of the abdomen and pelvis with intravenous contrast. Sagittal and coronal reformatted images were created and reviewed. This CT exam was performed using one or more of the following dose reduction techniques: automated exposure control, adjustment of the mA and/or kV according to patient size, and/or use of iterative reconstruction technique. CONTRAST: 119ml of Optiray 320 was administered intravenously. COMPARISON: No relevant prior studies available. FINDINGS: Limitations: None. Lung bases: No abnormality noted. Pleural space: No visualized pleural effusion or pneumothorax. Heart: No abnormality noted. Mediastinum: No abnormality noted. ABDOMEN: Liver: No abnormality noted. Gallbladder and bile ducts: No calcified stones or surrounding fluid. Pancreas: Homogeneous enhancement. No mass, inflammation or ductal dilation. Spleen: No significant abnormality noted. Adrenals: No significant abnormality noted. Kidneys and ureters: Bilateral renal cortical scarring present. No solid nodule, stones or hydronephrosis. Probable tiny cysts too small to characterize. No further assessment required. Stomach and bowel: Few scattered colonic diverticula noted. No diverticulitis. Incompletely distended stomach without gross abnormality. PELVIS: Appendix: Well seen and appears normal. Bladder: There is mild bladder prolapse. Reproductive: Hysterectomy. 11 mm benign cyst left ovary. ABDOMEN and PELVIS: Intraperitoneal space: No free air. No significant fluid collection. Bones/joints: No acute changes. Soft tissues: Umbilical hernia containing fat. Vasculature: Atherosclerotic calcification of the aorta and branches. No aneurysm. Lymph nodes: No pathologically enlarged lymph nodes. IMPRESSION: 1. Incompletely distended suboptimally assessed stomach. There is no intestinal inflammation. 2. Few scattered colonic diverticula without diverticulitis. 3. Mild bladder prolapse. ACT 112: Negative or not required by law. Electronically signed by Mallorie Cazares 07-30-2024 2:13 PM Chest CTA 07/30/24 13:12 CT ANGIOGRAPHY OF THE CHEST, PULMONARY EMBOLUS PROTOCOL CLINICAL HISTORY: Hypotension. Melena. Evaluate for pulmonary embolus. COMPARISON STUDY: Chest CT December 21, 2021. Chest radiograph performed earlier today. TECHNIQUE: Following IV administration of 119 mL of Optiray, helical axial images of the chest were obtained utilizing the pulmonary embolus protocol. Maximal intensity projections and sagittal and coronal reformats were viewed on an independent 3D workstation. IV contrast was administered without complication. Automated exposure control was utilized for the study. A dose lowering technique was utilized adhering to the principles of ALARA. CT DOSE: 2289.39 mGy.cm FINDINGS: No pulmonary emboli are identified. There is no thoracic aortic dissection. Size of the heart is normal. There is moderate coronary artery calcification. The central airways are patent. There is no pneumothorax or pleural effusion. No consolidation to suggest pneumonia. There are no pulmonary nodules. Subpleural ground glass opacities favor atelectasis. Moderate amount of hyperdense material within the stomach is present. IMPRESSION: 1. No pulmonary emboli identified. 2. No acute intrathoracic findings. 3. Moderate amount of hyperdense material within the stomach. This could represent ingested contents. However, clot within the stomach could appear similar. ACT 112: Negative or not required by law. Electronically signed by: Jose Schmidt M.D. 07/30/2024 2:05 PM Code Status & VTE Plan Code Status Full PG Care Time/CCT Total # of Minutes Spent Total Time Spent with Patient: Total time spent is greater than 50% in coordination of care (as documented) at patient's floor/unit and/or counseling patient: Coding Level of Care Code 90772 INT INP/OBS CARE 2/55MIN Diagnoses Acute GI bleeding K92.2 CAD (coronary artery disease) I25.10 Diabetes mellitus, type 2 E11.9 Time Spent (min) 65
[2024-07-30] MEDS: PANTOPRAZOLE BOLUS/DRIP IV STA (15:30)
[2024-07-30 15:37] LABS: Partial Thromboplastin Ratio 0.9; Partial Thromboplastin Time 24 Seconds (21-31)
[2024-07-30 16:05] LABS: Appearance Urine Clear (Clear); Bilirubin Urine Negative (Negative); Blood Urine Negative (Negative); Color Urine Yellow; Glucose Urine UA Negative (Negative); Ketones Urine Negative (Negative); Leukocyte Esterase Urine Negative (Negative); Nitrite Urine Negative (Negative); Protein Urine Negative (Negative); Specific Gravity Urine 1.041 (1.000-1.030); Urobilinogen Urine Negative (Negative); pH Urine 6.5 (4.5-7.5)
[2024-07-30] MEDS: LACTATED RINGER'S 1,000 ML IV SCH (18:11)
[2024-07-30] MEDS ORDERED: ALBUTEROL HFA 8 GM INHALER INH PRN (20:40)
[2024-07-30] MEDS ORDERED: NITROGLYCERIN SL 0.4 MG/TAB TAB SL PRN (20:40)
[2024-07-30 21:12] LABS: Hematocrit (blood only) 29.4 % (37.0-47.0); Hemoglobin 9.4 g/dl (12.0-16.0)
[2024-07-30] MEDS: OXYBUTYNIN CHLORIDE XL 5 MG TABCR PO SCH (22:18)
[2024-07-30] MEDS: DULoxetine HCL 30 MG CAP PO SCH (22:18)
[2024-07-30] MEDS: LORazepam 2 MG/1 ML VIAL IV PRN (23:11)
[2024-07-31 02:38] LABS: Hematocrit (blood only) 27.6 % (37.0-47.0); Hemoglobin 8.7 g/dl (12.0-16.0)
[2024-07-31 03:20] LABS: BUN Creatinine Ratio 34.1 (10-20); Calcium 8.1 mg/dl (8.6-10.3); Creatinine Clr Calc Pharmacy 55.8 ml/min; Potassium 4.1 mmol/L (3.5-5.1)
--- NOTE | 2024-07-31 07:47 | Hospitalist Progress Note ---
Date of Service July 31, 2024 Assessment & Plan (1) Acute GI bleeding: Plan: 74 y/o with CAD, PCI with LAD stent 09/2023 on aspirin and brilinta presented with dark hemoccult+ stools for two weeks, prior to that two months of dyspnea on exertion, fatigue and lightheadedness CTA chest/abd/pelvis remarkable for material in stomach could be food or blood clots, diverticulosis Suspect upper GI bleed Acute blood loss anemia -Hg baseline 12-13, 11.5--> 9.5 after IV fluids --> 9.4--8.7. continue to monitor serial Hg, not meeting indication for transfusion at this time though anemia certainly exacerbating her symptoms -check iron panel -coags wnl -Access - PIV -GI consulted - EGD planned in AM -ASA and brilinta held -continue IV PPI (2) CAD (coronary artery disease): Plan: History of CAD, follows with Dr. Mathur - Stent to LAD 09/2023; On ASA + Brilinta- HOLD - Rosuvastatin (dyslipidemia) - hold - HOLD Amlodipine and Losartan per outpatient cardiology note recommendations - HOLD metoprolol Recent ROSARIO and lightheadedness with negative outpatient workup - Dr. 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 that the symptoms are cardiogenic she also was evaluated in pulmonary clinic and PFTs which were unremarkable except for some possible asthma, methacholine challenge planned, control inhaler was started this past week too early to assess whether it is helping her symptoms she was seen in sleep clinic diagnosed with sleep apnea awaiting delivery of home CPAP machine recent B12 and TSH were within normal limits no history of COVID-19 or other viral illness recently her current anemia definitely is exacerbating the symptoms, however, they likely predate her anemia, no recent hemoglobin in our system prior to yesterday assess response to stopping Brilinta which can definitely cause dyspnea on exertion, consider transfusion if symptoms persist after stopping Brilinta Plan Anxiety- Lorazepam oral SWITCHED to IV prn anxiety HOLDING following oral meds- Allopurinol, amlodipine, ASA, Vit D3, cyclobenzaprine, donepezil, losartan, metoprolol, omeprazole, rosuvastatin, brilinta VTE Prophylaxis: SCDs, chemoppx contraindicated Admission and Anticipated Discharge Date Admission Date: July 30, 2024 Subjective reports black stool this am, sounds like soft not liquid melena no nsaids no abdominal pain or nausea has had ROSARIO and lightheadedness, severe fatigue since Sept these sx worsening last 2 weeks Physical Exam 2 Physical Exam: PHYSICAL EXAMINATION Last 24h vital signs reviewed, see documentation in flowsheet General: comfortable appearing, no distress HEENT: Normocephalic, atraumatic, pupils round and equal, sclerae anicteric, no conjunctival injection, moist mucus membranes Lungs: Normal respiratory effort. Clear to auscultation bilaterally. No RRW Heart: Regular rate and rhythm, no murmurs. No JVD Abdomen: Soft, nontender, nondistended. Bowel sounds present. Extremities: Warm, dry, well-perfused. No extremity edema. Neuro: Alert and oriented x 4, face symmetric, moves 4 extremities well Psych: Normal affect and behavior Results & Data Results & Data Vital Signs (Past 12 Hours) Vital Signs Temp Pulse Pulse Resp BP Pulse Ox O2 Del Method 07/31/24 07:36 97.9 F 80 16 97/66 L 97 Room Air 07/31/24 03:49 97.7 F 102 H 16 108/74 99 Room Air 07/30/24 23:17 97.7 F 74 17 106/63 94 Room Air 07/30/24 21:40 80 07/30/24 21:36 97.9 F 82 18 108/76 99 Room Air 07/30/24 20:35 96 H Laboratory Results 07/31/24 02:06 07/31/24 02:06 PG Care Time/CCT Total # of Minutes Spent Total Time Spent with Patient: Total time spent is greater than 50% in coordination of care (as documented) at patient's floor/unit and/or counseling patient: Coding Level of Care Code 27952 SUB INP/OBS CARE 350MIN Diagnoses Acute GI bleeding K92.2 CAD (coronary artery disease) I25.10 Diabetes mellitus, type 2 E11.9 ROSARIO (dyspnea on exertion) R06.09
[2024-07-31 08:34] LABS: Hematocrit (blood only) 27.2 % (37.0-47.0); Hemoglobin 8.6 g/dl (12.0-16.0)
[2024-07-31] MEDS: FLUTICASONE/VILANTEROL 100/25MCG 14 PUFFS/INHALER INH SCH (08:40)
--- NOTE | 2024-07-31 09:23 | Gastrointestinal Consultation ---
Date of Consultation July 31, 2024 Assessment & Plan (1) Acute GI bleeding: Patient has presented with a fall in her hemoglobin as well as having history of melena and feeling weak currently on rectal she does not have any evidence of GI bleeding done by myself and there was scant amount of dark brown stools her anticoagulation have been kept on hold at the current time I would 1. Continue with PPI 2. Monitor H&H every 8 hours and transfuse to keep hemoglobin greater than 8 3. Placed on clear liquid diet and will plan EGD in a.m. Thank you for allowing us to take part in the care of your patient we will continue to follow her with you History of Present Illness Reason for Consultation: Anemia and melena Attending Physician: Alena Frost MD History of Present Illness A very pleasant 74-year-old female with multiple medical problems who was seeing her housekeeper yesterday and she complained of feeling weak and tired and she was also hypotensive as per the patient and the housekeeper referred her to the ER where she was evaluated of note she has been stating that she has noticed dark to black stools over the last few weeks she has a chronic history of reflux she states she has choked at times but no specific dysphagia has nausea and states vomited once in the last month has some nonspecific lower abdominal discomfort is generally constipated and she takes some Metamucil on a daily basis however in the last 24 hours she has had 3 bowel movements currently she feels comfortable and does not appear to be in any distress Allergies Allergy/AdvReac Type Severity Reaction Status Date / Time prednisone AdvReac Intermediate increased Verified 07/30/24 11:02 blood pressure Home Medications Medication Instructions Recorded Confirmed Type aspirin 81 mg tablet,delayed 81 mg PO HS 10/27/19 07/30/24 History release omeprazole 40 mg capsule,delayed 40 mg PO QAM 10/27/19 07/30/24 History release lorazepam 0.5 mg tablet 0.5 mg PO DAILY PRN Anxiety 04/05/20 07/30/24 History allopurinol 100 mg tablet 100 mg PO QAM 12/21/21 07/30/24 History cholecalciferol (vitamin D3) 50 50 mcg PO HS 09/04/22 07/30/24 History mcg (2,000 unit) capsule (Vitamin D3) cyclobenzaprine 10 mg tablet 10 mg PO TID PRN MUSCLE SPASMS 09/04/22 07/30/24 History donepezil 10 mg tablet (Aricept) 10 mg PO HS 09/04/22 07/30/24 History sennosides 8.6 mg tablet (senna) 8.6 mg PO BID PRN Constipation 09/04/22 07/30/24 History rosuvastatin 20 mg tablet 20 mg PO HS 08/07/23 07/30/24 History nitroglycerin 0.4 mg sublingual 0.4 mg sublingual Q5M PRN chest 08/23/23 07/30/24 Rx tablet pain #25 tabs losartan 100 mg tablet 100 mg PO QAM 09/25/23 07/30/24 History ticagrelor 90 mg tablet (Brilinta) 90 mg PO BID #180 tabs 07/25/24 07/30/24 Rx albuterol sulfate 90 mcg/actuation 2 puff inhalation .EVERY 4-6 HOURS 07/30/24 07/30/24 History aerosol inhaler PRN COUGH,SOB,WHEEZE amlodipine 5 mg tablet 5 mg PO QAM 07/30/24 07/30/24 History coenzyme Q10 50 mg capsule (Co 50 mg PO DAILY 07/30/24 07/30/24 History Q-10) duloxetine 30 mg capsule,delayed 30 mg PO HS 07/30/24 07/30/24 History release fluticasone furoate 50 1 ea inhalation UD 07/30/24 07/30/24 History mcg-vilanterol 25 mcg/dose inhalation powder (Breo Ellipta) metoprolol succinate 100 mg 100 mg PO QAM 07/30/24 07/30/24 History tablet,extended release 24 hr oxybutynin chloride 5 mg 5 mg PO HS 07/30/24 07/30/24 History tablet,extended release 24 hr tirzepatide 7.5 mg/0.5 mL 7.5 mg subcut WK 07/30/24 07/30/24 History subcutaneous pen injector (Kylah) Patient History Medical History Gout Anxiety Post laminectomy syndrome L2-S1 posterior fusion 03/2016 CKD (chronic kidney disease), stage III Diabetes Dyspnea on minimal exertion recent stress/echo done (06/2024)>> to be evaluated by pulmonolgy, unsure when/who Antiplatelet or antithrombotic long-term use Status post insertion of drug-eluting stent into left anterior descending (LAD) artery (09/2023) CAD (coronary artery disease) follows w/ Dr Mathur Osteoarthritis GERD (gastroesophageal reflux disease) Fatigue Abnormal pharmacologic myocardial perfusion study Diverticulitis hx Urinary urgency Hydronephrosis, right hx History of blood transfusion Peripheral neuropathy hands and feet Nodule of kidney CT SCAN YEARLY TO EVALUATE SIZE/GROWTH History of kidney stones Prolapsed bladder History of depression History of anxiety Hypertension controlled, stable per pt Hyperlipidemia History of COVID-19 X 2 *LAST TIME MARCH 2022>A LINGERING COUGH FROM TIME TO TIME SINCE LAST DX Chronic low back pain Surgical History Hx of cardiac catheterization abnormal stress- x 1 stent History of surgery TEMPORARY SPINAL CORD STIMULATOR IMPLANTED *PULLED OUT/NOT CURRENLTY INTACT History of cystoscopy KIDNEY STONE REMOVAL History of colonoscopy [place] teeth removed History of tonsillectomy H/O rotator cuff surgery RT Previous back surgery L2-S1 posterior fusion (03/2016) H/O: hysterectomy H/O cardiac radiofrequency ablation TACHYCARDIA TX>OVER 15 YEARS AGO Family History Other No family history of adverse response to anesthesia No pertinent family history Social History Smoking Status: Never smoker Second Hand Exposure: No; Do You Dip or Chew Tobacco: No; Hx Alcohol Use: No Hx Substance Use: No Preferred Language: Mohawk Communication Ability: Effective Visual Impairment: Limited Hearing Ability: Normal Regional Safety Manager Required: No Beliefs That Will Affect Care: None marital status: Current Living Situation: Spouse and Family Current Living Situation Comment: lives with and son current occupational status: retired Other Information That Helps Us Care for You: Yes Feels Safe at Home: Yes Assistive Devices: Glasses and Walker Assistive Devices Comment: uses walker at times Review of Systems Review of Systems: A 10 point review of systems was done Physical Exam Constitutional: Pleasant female who does not appear to be in any acute distress and is comfortable Eyes: PERRL, conjunctivae normal, anicteric sclerae Neck: Supple Respiratory: Clear anteriorly Cardiovascular: S1 and S2 Gastrointestinal (Abdomen): soft no tenderness tenderness or masses appreciated bowel sounds are present Rectal scant brown stools Neurologic: Grossly intact Psychiatric: Awake alert oriented x 3 Results & Data Vital Signs (Past 12 Hours) Vital Signs Temp Pulse Pulse Resp BP Pulse Ox O2 Del Method 07/31/24 07:36 36.6 C 80 16 97/66 L 97 Room Air 07/31/24 03:49 36.5 C 102 H 16 108/74 99 Room Air 07/30/24 23:17 36.5 C 74 17 106/63 94 Room Air 07/30/24 21:40 80 07/30/24 21:36 36.6 C 82 18 108/76 99 Room Air PG Care Time/CCT Total # of Minutes Spent Total Time Spent with Patient: Total time spent is greater than 50% in coordination of care (as documented) at patient's floor/unit and/or counseling patient: Coding Level of Care Code 70965 IN/OBS CONSULT LVL 3,45M Diagnoses Acute GI bleeding K92.2
[2024-07-31 15:32] LABS: Hematocrit (blood only) 25.9 % (37.0-47.0); Hemoglobin 8.5 g/dl (12.0-16.0)
[2024-08-01 00:17] LABS: Hematocrit (blood only) 27.9 % (37.0-47.0); Hemoglobin 8.9 g/dl (12.0-16.0)
[2024-08-01 08:06] LABS: Hematocrit (blood only) 25.9 % (37.0-47.0); Hemoglobin 8.3 g/dl (12.0-16.0); Mean Corpuscular Hemoglobin 30.1 pg (25.0-34.0); Mean Corpuscular Volume 93.8 fL (80.0-100.0); Mean Platelet Volume 10.1 fL (9.4-12.4); Nucleated RBC # (auto) 0.02 K/uL (0.00-0.12); Nucleated RBC % (auto) 0.4 %; Platelet Count 172 K/uL (130-400); RDW Coefficient of Variation 18.1 % (11.5-14.5); RDW Standard Deviation 59.9 fL (36.4-46.3); Red Blood Count 2.76 M/uL (4.20-5.40); White Blood Count 5.32 K/ul (4.8-10.8)
[2024-08-01 08:23] LABS: BUN Creatinine Ratio 17.7 (10-20); Calcium 8.3 mg/dl (8.6-10.3); Creatinine Clr Calc Pharmacy 53.1 ml/min; Potassium 3.7 mmol/L (3.5-5.1)
--- NOTE | 2024-08-01 09:09 | History & Physical Bridge Note ---
Date of Service August 01, 2024 History & Physical Bridge Note I have examined the patient, reviewed the History & Physical and in the interval since the performance of the History & Physical I have noted the following changes of clinical significance: no changes noted
[2024-08-01] MEDS ORDERED: ePHEDrine sulfate 50 MG/ML AMP IV PRN (10:01)
[2024-08-01] MEDS ORDERED: ONDANSETRON INJ 2 MG/ML 2 ML VIAL IV PRN (10:01)
[2024-08-01] MEDS ORDERED: ATROPINE SULFATE 0.1 MG/ML 10ML SYR IV PRN (10:01)
[2024-08-01] MEDS ORDERED: fentaNYL citrate PF 100 MCG/2 ML VIAL IV PRN (10:01)
--- NOTE | 2024-08-01 10:01 | Anesthesiology Consultation ---
Date of Service August 01, 2024 Assessment & Plan Chart Review Chart Review: Acceptable Risk for Surgery and Patient NOT seen in Pre Admission Testing Consults Requested none History Surgery Operation Date: 08/01/24 07:50 Proposed Procedures p Esophagogastroduodenoscopy - Sergio Chino MD Height/Weight Height: 5 ft 2 in Weight: 93.5 kg Allergies Allergy/AdvReac Type Severity Reaction Status Date / Time prednisone AdvReac Intermediate increased Verified 07/30/24 11:02 blood pressure Medications Home Medications Medication Instructions Recorded Confirmed Last Taken aspirin 81 mg tablet,delayed 81 mg PO HS 10/27/19 07/30/24 09/24/22 20:00 release omeprazole 40 mg capsule,delayed 40 mg PO QAM 10/27/19 07/30/24 09/25/22 06:30 release lorazepam 0.5 mg tablet 0.5 mg PO DAILY PRN Anxiety 04/05/20 07/30/24 09/25/22 06:30 allopurinol 100 mg tablet 100 mg PO QAM 12/21/21 07/30/24 09/25/22 06:30 cholecalciferol (vitamin D3) 50 50 mcg PO HS 09/04/22 07/30/24 09/24/22 20:00 mcg (2,000 unit) capsule (Vitamin D3) cyclobenzaprine 10 mg tablet 10 mg PO TID PRN MUSCLE SPASMS 09/04/22 07/30/24 09/24/22 20:00 donepezil 10 mg tablet (Aricept) 10 mg PO HS 09/04/22 07/30/24 09/24/22 20:00 sennosides 8.6 mg tablet (senna) 8.6 mg PO BID PRN Constipation 09/04/22 07/30/24 09/23/22 rosuvastatin 20 mg tablet 20 mg PO HS 08/07/23 07/30/24 Unknown nitroglycerin 0.4 mg sublingual 0.4 mg sublingual Q5M PRN chest 08/23/23 07/30/24 Unknown tablet pain #25 tabs losartan 100 mg tablet 100 mg PO QAM 09/25/23 07/30/24 Unknown ticagrelor 90 mg tablet (Brilinta) 90 mg PO BID #180 tabs 07/25/24 07/30/24 Unknown albuterol sulfate 90 mcg/actuation 2 puff inhalation .EVERY 4-6 HOURS 07/30/24 07/30/24 Unknown aerosol inhaler PRN COUGH,SOB,WHEEZE amlodipine 5 mg tablet 5 mg PO QAM 07/30/24 07/30/24 Unknown coenzyme Q10 50 mg capsule (Co 50 mg PO DAILY 07/30/24 07/30/24 Unknown Q-10) duloxetine 30 mg capsule,delayed 30 mg PO HS 07/30/24 07/30/24 Unknown release fluticasone furoate 50 1 ea inhalation UD 07/30/24 07/30/24 Unknown mcg-vilanterol 25 mcg/dose inhalation powder (Breo Ellipta) metoprolol succinate 100 mg 100 mg PO QAM 07/30/24 07/30/24 Unknown tablet,extended release 24 hr oxybutynin chloride 5 mg 5 mg PO HS 07/30/24 07/30/24 Unknown tablet,extended release 24 hr tirzepatide 7.5 mg/0.5 mL 7.5 mg subcut WK 07/30/24 07/30/24 Unknown subcutaneous pen injector (Kylah) Active Medications Generic Name Dose Route Start Last Admin Trade Name Freq PRN Reason Stop Dose Admin Duloxetine HCl 30 mg 07/30/24 21:00 07/31/24 20:37 Duloxetine Hcl 30 Mg Cap PO 08/29/24 20:59 30 mg HS EWA Administration Fluticasone/Vilanterol 1 puffs 07/31/24 09:00 08/01/24 08:07 Fluticasone/Vilanterol 100/25mcg 14 Puffs/Inhaler INH 08/30/24 08:59 1 puffs DAILY EWA Administration Pantoprazole Sodium 40 mg/ 100 mls @ 20 mls/hr 07/30/24 15:15 08/01/24 08:50 Dextrose IV 08/29/24 15:14 8 mg/hr Q5H EWA 20 mls/hr Administration 8 MG/HR Lorazepam 0.5 mg 07/30/24 20:40 07/31/24 20:35 Lorazepam 2 Mg/1 Ml Vial IV 08/29/24 20:39 0.5 mg Q8H PRN Administration Anxiety/Agitation Oxybutynin Chloride 5 mg 07/30/24 21:00 07/31/24 20:37 Oxybutynin Chloride Xl 5 Mg Tabcr PO 08/29/24 20:59 5 mg HS EWA Administration NPO Date Last Intake of Fluids: 07/31/24 Time Last Intake of Fluids: 18:00 Date Last Intake of Solids: 07/29/24 Last Intake of Solids Comment: has been on clears for 2 days Past Medical History Medical History Gout Anxiety Post laminectomy syndrome L2-S1 posterior fusion 03/2016 CKD (chronic kidney disease), stage III Diabetes Dyspnea on minimal exertion recent stress/echo done (06/2024)>> to be evaluated by pulmonolgy, unsure when/who Antiplatelet or antithrombotic long-term use Status post insertion of drug-eluting stent into left anterior descending (LAD) artery (09/2023) CAD (coronary artery disease) follows w/ Dr Mathur Osteoarthritis GERD (gastroesophageal reflux disease) Fatigue Abnormal pharmacologic myocardial perfusion study Diverticulitis hx Urinary urgency Hydronephrosis, right hx History of blood transfusion Peripheral neuropathy hands and feet Nodule of kidney CT SCAN YEARLY TO EVALUATE SIZE/GROWTH History of kidney stones Prolapsed bladder History of depression History of anxiety Hypertension controlled, stable per pt Hyperlipidemia History of COVID-19 X 2 *LAST TIME MARCH 2022>A LINGERING COUGH FROM TIME TO TIME SINCE LAST DX Chronic low back pain Past Family History Family History Other No family history of adverse response to anesthesia No pertinent family history Past Surgical History Surgical History Hx of cardiac catheterization abnormal stress- x 1 stent History of surgery TEMPORARY SPINAL CORD STIMULATOR IMPLANTED *PULLED OUT/NOT CURRENLTY INTACT History of cystoscopy KIDNEY STONE REMOVAL History of colonoscopy [place] teeth removed History of tonsillectomy H/O rotator cuff surgery RT Previous back surgery L2-S1 posterior fusion (03/2016) H/O: hysterectomy H/O cardiac radiofrequency ablation TACHYCARDIA TX>OVER 15 YEARS AGO Social History Smoking Status: Never smoker Do You Dip or Chew Tobacco: No Hx Alcohol Use: No Hx Substance Use: No substance use type: does not use Physical Exam Vital Signs Last Vital Signs Temp 36.8 C 08/01/24 09:47 Pulse 99 H 08/01/24 09:47 Resp 16 08/01/24 09:47 BP 133/69 08/01/24 09:47 Pulse Ox 95 08/01/24 09:47 O2 Del Method Room Air 08/01/24 09:47 Testing Laboratory Results 08/01/24 07:53 08/01/24 07:53 PT 10.7 Seconds (9.0-12.0) 07/30/24 12:34 INR 1.0 (0.9-1.1) 07/30/24 12:34 APTT 24 Seconds (21-31) 07/30/24 12:34 Urine Color Yellow 07/30/24 15:56 Urine Appearance Clear (Clear) 07/30/24 15:56 Urine pH 6.5 (4.5-7.5) 07/30/24 15:56 Ur Specific [place] 1.041 (1.000-1.030) H 07/30/24 15:56 Urine Protein Negative (Negative) 07/30/24 15:56 Urine Glucose (UA) Negative (Negative) 07/30/24 15:56 Urine Ketones Negative (Negative) 07/30/24 15:56 Urine Nitrite Negative (Negative) 07/30/24 15:56 Ur Leukocyte Esterase Negative (Negative) 07/30/24 15:56 Blood Type Cancelled 07/30/24 12:40 Blood Type O Positive 07/30/24 12:40 Antibody Screen Cancelled 07/30/24 12:40 Antibody Screen NEGATIVE 07/30/24 12:40 08/01/24 04:08 POC Glucose 89
[2024-08-01] MEDS ORDERED: LIDOCAINE 2% 2 ML VIAL/AMP(20MG/ML) INFIL ONE (10:05)
[2024-08-01] MEDS ORDERED: PROPOFOL IV EMULSION 10 MG/ML 20 ML VIAL IV ONE (10:05)
--- NOTE | 2024-08-01 11:39 | GI REPORT ---
[facility] Patient: DAILY BAUTISTA : 1950 Sex at : Female Age: 74 Years Procedure: Upper GI endoscopy Date: 08/01/2024 Attending Physician: Sergio Chino MD Referring MD: Alena Frost Md Indications: - Anemia Medications: - Monitored Anesthesia Care Complications: - No immediate complications. Estimated Blood Loss: - Estimated blood loss: None. Procedure: - The egd scope was introduced through the mouth and advanced to the second part of the duodenum. - The upper GI endoscopy was accomplished with ease. - The patient tolerated the procedure well. - The upper GI endoscopy was accomplished without difficulty. Findings: - Grade A esophagitis. In the body of the stomach there were two large polyps. They had a wide base and about 2 cm i size for the larger one. One of the polyps appeared erythematous. Most likely source of melena was bleeding from the large polyp. Impression: - Grade A esophagitis. In the body of the stomach there were two large polyps. They had a wide base and about 2 cm i size for the larger one. One of the polyps appeared erythematous. Most likely source of melena was bleeding from the large polyp. Recommendation: - Patient should have a repeat EGD done with advanced endoscopy for removal of these complex polyps. Monitor H and H every 12 hours for the next 24 hours and keep on full liquid diet. Procedure Code(s): - 80191, Esophagogastroduodenoscopy, flexible, transoral; diagnostic, including collection of specimen(s) by brushing or washing, when performed (separate procedure) CPT(R) - 2023 copyright [employer]. All Rights Reserved. The CPT codes, CCI edits and ICD codes generated are intended as suggestions and were generated based on input data. These codes are preliminary and upon senior recruiter review may be revised to meet current compliance and payer requirements. The provider is responsible for the final determination of appropriate codes, and modifiers. Sergio Chino MD This document has been electronically signed. Note Initiated:08/01/2024 Note Completed:08/01/2024 11:38 AM \\[email or web address]\Results\[email or web address]\[id number]
[2024-08-01] MEDS ORDERED: SODIUM CHLORIDE 0.9% 100 ML IV PRN (14:50)
[2024-08-01] MEDS ORDERED: SODIUM CHLORIDE 0.9% 50 ML IV PRN (14:50)
[2024-08-01] MEDS: ACETAMINOPHEN 325 MG TAB PO PRN (15:02)
--- NOTE | 2024-08-01 16:18 | Hospitalist Progress Note ---
Date of Service August 01, 2024 Assessment & Plan (1) Acute GI bleeding: Plan: 74 y/o with CAD, PCI with LAD stent 09/2023 on aspirin and brilinta presented with dark hemoccult+ stools for two weeks, prior to that two months of dyspnea on exertion, fatigue and lightheadedness CTA chest/abd/pelvis remarkable for material in stomach could be food or blood clots, diverticulosis Suspect upper GI bleed Acute blood loss anemia -Hg baseline 12-13, 11.5--> 9.5 after IV fluids --> 9.4-----> 8.3. Remains highly symptomatic of anemia with lightheadedness and ROSARIO, will transfuse 1 unit RBCs -iron supplementation po -coags wnl -Access - PIV -GI consulted - EGD 08/01 with esophagitis, two large gastric polyps the largest appeared erythematous was likely source of the melena, not actively bleeding -discussed with Dr. Chino recommended full liquid diet, may dc tomorrow if no further bleeding. Will need referral to tertiary care advanced endoscopist for polypectomy -ASA and brilinta held. If no further bleeding may resume aspirin -continue IV PPI -AM Hg (2) CAD (coronary artery disease): Plan: History of CAD, follows with Dr. Mathur - Stent to LAD 09/2023; On ASA + Brilinta- HOLD - Rosuvastatin (dyslipidemia) - hold - HOLD Amlodipine and Losartan per outpatient cardiology note recommendations - HOLD metoprolol Recent ROSARIO and lightheadedness with negative outpatient workup - Dr. Mathur recently stopped brilinta - plan to continue ASA (3) Diabetes mellitus, type 2: Plan: H/o DMT2 - Diet controlled as well as Mounjaro weekly - Most recent A1C 09/2022 at 6.2% - No SSI at this time, no glucose checks - BG normal today (4) ROSARIO (dyspnea on exertion): Plan: dyspnea on exertion, extreme fatigue and episodes of lightheadedness since May 2024 has been undergoing outpatient workup including an echo and dobutamine stress echo which were unremarkable, her gas producer does not feel that the symptoms are cardiogenic she also was evaluated in pulmonary clinic and PFTs which were unremarkable except for some possible asthma, methacholine challenge planned, control inhaler was started this past week too early to assess whether it is helping her symptoms she was seen in sleep clinic diagnosed with sleep apnea awaiting delivery of home CPAP machine recent B12 and TSH were within normal limits no history of COVID-19 or other viral illness recently her current anemia definitely is exacerbating the symptoms, however, they likely predate her anemia, no recent hemoglobin in our system prior to yesterday assess response to stopping Brilinta which can definitely cause dyspnea on exertion, response to transfusion Plan Anxiety- Lorazepam oral SWITCHED to IV prn anxiety HOLDING following oral meds- Allopurinol, amlodipine, ASA, Vit D3, cyclobenzaprine, donepezil, losartan, metoprolol, omeprazole, rosuvastatin, brilinta VTE Prophylaxis: SCDs, chemoppx contraindicated I updated her and daughter at bedside today Admission and Anticipated Discharge Date Admission Date: July 30, 2024 Subjective erythematous gastric polyps on EGD no stools overnight feels very lightheaded when up to bedside commode, ROSARIO, not improved thus far Physical Exam 2 Physical Exam: PHYSICAL EXAMINATION Last 24h vital signs reviewed, see documentation in flowsheet General: comfortable appearing, no distress no change in exam 08/01 HEENT: Normocephalic, atraumatic, pupils round and equal, sclerae anicteric, no conjunctival injection, moist mucus membranes Lungs: Normal respiratory effort. Clear to auscultation bilaterally. No RRW Heart: Regular rate and rhythm, no murmurs. No JVD Abdomen: Soft, nontender, nondistended. Bowel sounds present. Extremities: Warm, dry, well-perfused. No extremity edema. Neuro: Alert and oriented x 4, face symmetric, moves 4 extremities well Psych: Normal affect and behavior Results & Data Results & Data Vital Signs (Past 12 Hours) Vital Signs Temp Pulse Pulse Pulse Resp BP BP 08/01/24 16:00 98.1 F 102 H 122/82 08/01/24 15:29 97.9 F 99 H 17 107/72 08/01/24 13:54 95 H 08/01/24 11:52 98.2 F 94 H 20 116/78 08/01/24 11:44 90 08/01/24 11:35 97 H 14 118/73 08/01/24 11:30 98.1 F 100 H 15 118/75 08/01/24 11:25 100 H 12 110/76 08/01/24 11:15 103 H 13 86/61 L 08/01/24 11:05 96.8 F L 115 H 19 98/60 L 08/01/24 09:47 98.2 F 99 H 16 133/69 08/01/24 08:11 08/01/24 08:05 97.7 F 99 H 17 110/74 Pulse Ox O2 Del Method O2 Flow Rate 08/01/24 16:00 08/01/24 15:29 96 Room Air 08/01/24 13:54 08/01/24 11:52 94 Room Air 08/01/24 11:44 08/01/24 11:35 97 Room Air 0 08/01/24 11:30 98 Room Air 0 08/01/24 11:25 100 Oxymask 4 08/01/24 11:15 100 Oxymask 8 08/01/24 11:05 100 Oxymask 8 08/01/24 09:47 95 Room Air 08/01/24 08:11 Room Air 08/01/24 08:05 96 Room Air Laboratory Results 08/01/24 07:53 08/01/24 07:53 PG Care Time/CCT Total # of Minutes Spent Total Time Spent with Patient: Total time spent is greater than 50% in coordination of care (as documented) at patient's floor/unit and/or counseling patient: Coding Level of Care Code 78771 SUB INP/OBS CARE 3/50MIN Diagnoses Acute GI bleeding K92.2 CAD (coronary artery disease) I25.10 Diabetes mellitus, type 2 E11.9 ROSARIO (dyspnea on exertion) R06.09
[2024-08-01 20:05] LABS: Hematocrit (blood only) 28.1 % (37.0-47.0); Hemoglobin 9.2 g/dl (12.0-16.0)
[2024-08-02 07:18] LABS: Hematocrit (blood only) 27.5 % (37.0-47.0); Hemoglobin 9.1 g/dl (12.0-16.0)
[2024-08-02 08:07] VITALS: RESP 18
--- NOTE | 2024-08-02 09:54 | Gastroenterology Progress Note ---
Date of Service August 02, 2024 Assessment & Plan (1) Gastric polyps: Plan The patient had presented with melena likely result of antiplatelet use and inflammatory polyps within the stomach. I would suggest that the patient be started on Protonix 40 mg twice daily in addition to Carafate 1 g 4 times daily, we will make arrangements for upper endoscopy in the next 2 to 4 weeks for endoscopic treatment of the enlarged polyps. Plan Protonix 40 mg twice daily Carafate 1 g 4 times daily Begin an iron supplement Outpatient upper endoscopy to be scheduled for endoscopic therapy of the gastric polyps Hold antiplatelet agents if possible Admission and Anticipated Discharge Date Admission Date: July 30, 2024 Subjective The patient underwent upper endoscopy yesterday for evaluation of melena. She was found to have several large polyps which appeared to be inflammatory polyps. The endoscopist has recommended outpatient endoscopy where the polypectomy can be performed. The patient reports having no hematemesis, melena or coffee- ground emesis overnight. She does have a history of heartburn and was intermittently using a proton pump inhibitor as an outpatient. The patient did have a cardiac stent placed in September and has been on Brilinta as an outpatient. Physical Exam Neck: trachea midline, no thyromegaly Respiratory: normal respiratory effort, lungs clear to auscultation Cardiovascular: Rate/Rhythm: regular rate Gastrointestinal (Abdomen): normal bowel sounds, soft, nontender, no hepatosplenomegaly Results & Data Vital Signs (Past 12 Hours) Vital Signs Temp Pulse Pulse Resp BP Pulse Ox O2 Del Method 08/02/24 08:03 36.6 C 94 H 18 124/77 96 Room Air 08/02/24 07:38 Room Air 08/02/24 07:25 86 08/02/24 03:54 36.7 C 88 16 107/71 95 Room Air 08/01/24 23:43 36.7 C 99 H 16 94/62 L 94 Room Air 08/01/24 22:21 Room Air Laboratory Results Laboratory Results - last 24 hr 07/30/24 08/01/24 08/01/24 12:40 11:07 12:13 Hgb Hct POC Glucose 87 98 Blood Type O Positive Antibody Screen NEGATIVE Crossmatch See Detail 08/01/24 08/01/24 08/01/24 17:15 19:48 20:21 Hgb 9.2 L Hct 28.1 L POC Glucose 95 96 Blood Type Antibody Screen Crossmatch 08/02/24 08/02/24 06:06 08:00 Hgb 9.1 L Hct 27.5 L POC Glucose 94 Blood Type Antibody Screen Crossmatch Diagnostic Findings EGD Findings: - Grade A esophagitis. In the body of the stomach there were two large polyps. They had a wide base and about 2 cm i size for the larger one. One of the polyps appeared erythematous. Most likely source of melena was bleeding from the large polyp. Impression: - Grade A esophagitis. In the body of the stomach there were two large polyps. They had a wide base and about 2 cm i size for the larger one. One of the polyps appeared erythematous. Most likely source of melena was bleeding from the large polyp.
[2024-08-02 12:29] VITALS: BP 122/79; PULSE 98; TEMP 97.5; O2SAT 98
--- NOTE | 2024-08-02 17:00 | Discharge Summary ---
Discharge Summary Date of Service August 02, 2024 Principal Dx & Hospital Course #1 = Principal Diagnosis (1) Acute GI bleedin74 y/o with CAD, PCI with LAD stent 09/2023 on aspirin and brilinta presented with dark hemoccult+ stools for two weeks, prior to that two months of dyspnea on exertion, fatigue and lightheadedness CTA chest/abd/pelvis remarkable for material in stomach could be food or blood clots, diverticulosis Upper GI bleed Acute blood loss anemia -Hg baseline 12-13, 11.5--> 9.5 after IV fluids -->-----> 8.3. Remained highly symptomatic of anemia with lightheadedness and ROSARIO, symptoms improved after transfusion of 1u RBCs -no further melena, Hg stable -iron supplementation po -GI consulted - EGD 08/01 with esophagitis, two large gastric polyps the largest appeared erythematous was likely source of the melena, not actively bleeding. Will follow up with [facility] at [place] for advanced endoscopy / polypectomy. -treated with IV PPI drip in hospital, continue omeprazole 40 mg daily -GI recommended carafate 1g qid -ASA continued and Brilinta stopped (2) CAD (coronary artery disease): History of CAD, follows with Dr. Mathur - Stent to LAD 09/2023; On ASA + Brilinta prior to admission. Brilinta stopped by Dr. Mathur day of admission because of melena and dyspnea on exertion - Rosuvastatin - Amlodipine and losartan stopped because of normotension. Has had >20# weight loss on mounjaro and was persistently hypotensive early this admission due to medications - Metoprolol continued but at reduced dose. She will monitor BP and HR at home, has PCP visit within 2 weeks - Brilinta stopped, continue ASA (3) Diabetes mellitus, type 2: H/o DMT2 - Diet controlled as well as Mounjaro weekly - Most recent A1C 09/2022 at 6.2% (4) ROSARIO (dyspnea on exertion): dyspnea on exertion, extreme fatigue and episodes of lightheadedness since May 2024 has been undergoing outpatient workup including an echo and dobutamine stress echo which were unremarkable, her field service tech does not feel that the symptoms are cardiogenic she also was evaluated in pulmonary clinic and PFTs which were unremarkable except for some possible asthma, methacholine challenge planned, control inhaler was started this past week too early to assess whether it is helping her symptoms she was seen in sleep clinic diagnosed with sleep apnea awaiting delivery of home CPAP machine recent B12 and TSH were within normal limits no history of COVID-19 or other viral illness recently her current anemia definitely is exacerbating the symptoms, transfused 1u this admission with some improvement assess response to stopping Brilinta, which can definitely cause dyspnea on exertion in addition she has lost >20 pounds recently on Mounjaro and has been hypotensive on current BP/cardiac regimen -amlodipine recently stopped. On admission was persistently hypotensive initially, losartan and metoprolol held - following that was normotensive on no agents -stopped losartan, reduced metoprolol by 50% to 25 mg Notes For Next Care Provider anemia, hypotension on meds, Brilinta probably all contributing to recent lightheadedness/fatigue/ROSARIO Medication Changes From Visit stopped: Brilinta, amlodipine, losartan dose reduced: metoprolol omeprazole continued new: carafate, ferrous sulfate QOD Admission HPI Per Admitting Provider 77-year-old female presenting for weeks of lightheadedness, shortness of breath, black stool. ED course: Initial CBC WBC 10.04, RBC 3.87, H&H 11.5/36.3, MCHC 31.7, RDW 59.1, neutrophils elevated 7.02, repeat CBC WBC 7.69, RBC 3.14, H&H 9.5/29.9, MCHC 31.8, RDW 59.8, neutrophils 7.02; PT/INR WNL; CMP BUN 35 creatinine 1.31, BUN/creatinine ratio 26.7, glucose 161; lipase 112.; CXR without acute cardiopulmonary findings; CTAP incompletely distended suboptimal assess stomach, no intestinal inflammation, few scattered colonic diverticula without diverticulitis, mild bladder prolapse; chest CTA no pulmonary emboli identified, no acute intrathoracic findings, moderate amount of hyperdense material within the stomach could represent ingested contents, however clot within the stomach could appear similar; Hemoccult positive; EKG normal sinus rhythm rate around 90.; Provided with 2 L NSS, pantoprazole IV. Patient is 77-year-old female PMHx CAD s/p stent to LAD, T2DM, GERD, hypertension, hyperlipidemia, and anxiety senting for worsening shortness of breath, lightheadedness, and black stools for weeks, also found be hypotensive on arrival. Patient notes that the shortness of breath has been ongoing since approximately May but had worsened approximately 2 weeks ago. Notes shortness of breath with any exertion, even when she is trying to shower. Has caused her to feel very lightheaded and have to sit down as to not fall over. Previously evaluated by field service tech and had a EGD and stress echo completed last month. No chest pain, resting LVEF moderate LVH, LV size and systolic function normal. Additionally has noticed no riley blood. No associated abdominal pain or change in stool consistency, no N/V. Not taking Pepto-Bismol or iron. Notes that the only change within the past few weeks has been starting Mounjaro. Denying chest pain, palpitations, headache, vision changes, abdominal pain, diarrhea/constipation, hematuria, numbness/tingling, or LUTS. Never had this happen before. States that she took all a.m. medications. Please see Dr. Morales's attestation for adjustments/additions to treatment plan. Discharge Exam PHYSICAL EXAMINATION Last 24h vital signs reviewed, see documentation in flowsheet General: comfortable appearing, no distress no change in exam 08/02 except color is better, no longer pale HEENT: Normocephalic, atraumatic, pupils round and equal, sclerae anicteric, no conjunctival injection, moist mucus membranes Lungs: Normal respiratory effort. Clear to auscultation bilaterally. No RRW Heart: Regular rate and rhythm, no murmurs. No JVD Abdomen: Soft, nontender, nondistended. Bowel sounds present. Extremities: Warm, dry, well-perfused. No extremity edema. Neuro: Alert and oriented x 4, face symmetric, moves 4 extremities well Psych: Normal affect and behavior Discharge Plan Discharge Items Patient Disposition: Home - Self-Care Reason For Visit: GI BLEED Discharge Diagnosis: Acute upper GI bleeding secondary to gastric polyps Activity: Resume your previous activity Non-emergency contact: Primary Care Provider and Marine Service Operator Call non-emergency contact if: you have any medication questions and your symptoms worsen Follow-up/Referrals: Liza Dan DO [Physician] - Bridgette Drummond CRNP [Primary Care Provider] - (PLEASE CALL YOUR PRIMARY CARE PROVIDER TO SCHEDULE A HOSPITAL DISCHARGE FOLLOW-UP APPOINTMENT WITHIN 7-10 DAYS) Diet: Carb Consistent or DM2 Addtl Attending Provider Instructions: You were having gastrointestinal bleeding caused by gastric polyps You were treated with IV protonix (acid suppression), blood transfusion, endoscopy You are still anemic so please take ferrous sulfate 325 mg every 48h until anemia resolves. Follow up in primary care Take omeprazole (or equivalent) 40 mg daily and sucralfate (carafate) four times a day to prevent bleeding Stay on aspirin 81 mg daily, but stop brilinta Your blood pressure was LOW when you came in, and last few days has been NORMAL without medications -I reduced the metoprolol by half, to 50 mg daily -stop amlodipine and losartan -get a home BP cuff and keep log of blood pressure and heart rate - ideally 60-90 minutes after meds, same time of day -follow up with Dr. Mathur and in primary care -low BP could be playing a role in your fatigue, lightheadedness, weakness The gastric polyps need to be removed because they can be precancerous or early gastric cancer Follow up with gastroenterology for polyp removal It was a pleasure taking care of you in the hospital, Alena Frost MD Pending Studies at Discharge: No Stand-Alone Forms: My [facility] [employer], Smoking Cessation Medications and DC Order Prescriptions: New metoprolol succinate 50 mg tablet extended release 24 hr 50 mg PO DAILY Qty: 30 0RF omeprazole 40 mg capsule,delayed release(DR/EC) 40 mg PO DAILY Qty: 30 1RF sucralfate 1 gram tablet 1 g PO QID 28 Days Qty: 112 1RF Continued aspirin 81 mg tablet,delayed release (DR/EC) 81 mg PO HS lorazepam 0.5 mg tablet 0.5 mg PO DAILY PRN (Reason: Anxiety) nitroglycerin 0.4 mg tablet, sublingual 0.4 mg sublingual Q5M PRN (Reason: chest pain) Qty: 25 0RF Rx Instructions: until response; do not exceed 3 doses per episode rosuvastatin 20 mg tablet 20 mg PO HS Breo Ellipta 50-25 mcg/dose blister with device 1 ea inhalation UD allopurinol 100 mg tablet 100 mg PO QAM cyclobenzaprine 10 mg Tablet 10 mg PO TID PRN (Reason: MUSCLE SPASMS) sennosides [senna] 8.6 mg Tablet 8.6 mg PO BID PRN (Reason: Constipation) donepezil [Aricept] 10 mg Tablet 10 mg PO HS cholecalciferol (vitamin D3) [Vitamin D3] 50 mcg (2,000 unit) Capsule 50 mcg PO HS Mounjaro 7.5 mg/0.5 mL pen injector 7.5 mg SUBCUT WK Rx Instructions: TUESDAYS duloxetine 30 mg capsule,delayed release(DR/EC) 30 mg PO HS albuterol sulfate 90 mcg/actuation HFA aerosol inhaler 2 puff INHALATION .EVERY 4-6 HOURS PRN (Reason: COUGH,SOB,WHEEZE) oxybutynin chloride 5 mg tablet extended release 24hr 5 mg PO HS coenzyme Q10 [Co Q-10] 50 mg Capsule 50 mg PO DAILY Discontinued omeprazole 40 mg capsule,delayed release(DR/EC) 40 mg PO QAM Brilinta 90 mg tablet 90 mg PO BID Qty: 180 6RF losartan 100 mg tablet 100 mg PO QAM amlodipine 5 mg tablet 5 mg PO QAM metoprolol succinate 100 mg tablet extended release 24 hr 100 mg PO QAM Discharge Orders: Discharge Order (Routine); Ordered 08/02/24 Ordered By: Alena Rivas/Other Patient Handouts: GI Bleeding Causes and Tests, Iron Supplements Admission Data Admit Date/Time: 07/30/24 17:51 Attending Provider: Alena Frost Admit Provider: Lito Morales Primary Care Provider: Bridgette Drummond Other Providers: Lito Morales; Aruna Denton; Victoriano Elizabeth; Charlene Zambrano; Hazel Ma; Karishma Alan; Tammy Valdivia; Debbie Pacheco; Parviz Curiel; Liza Dan; Bethany Matamoros; Pj Haskins; Jennifer Sims; Isabelle Solano; Gabby Busch; Lesli Waller; Emily Alicea; Waldemar Perez; Carmen Viera; Courtney Loen Jr; Haroldo Alvarado; Sergio Chino; Curt Davidson; Terrell Matos; Subha Arboleda; Jaiden Multani I; Gertrude Bender Other Interventions: Discharge Summary Assessment (RN) Last Done: 08/02/24 11:19 Hospital Stay Data Consultations 07/30/24 15:36 ED Decision to Admit Stat 07/30/24 16:39 Consult Gastroenterology Routine Procedures Performed Operation Date: 08/01/24 07:50 Actual Procedures p Esophagogastroduodenoscopy(Not Applicable) - Sergio Chino MD Diagnostic Imagining Performed 07/30/24 13:12 CT abd pelvis IV con only Stat CT angio chest PE protocol Stat Pending Results Patient Have Any Pending Studies at Discharge: No Discharge Instructions Given to Patient (Per Discharging Provider) You were having gastrointestinal bleeding caused by gastric polyps You were treated with IV protonix (acid suppression), blood transfusion, endoscopy You are still anemic so please take ferrous sulfate 325 mg every 48h until anemia resolves. Follow up in primary care Take omeprazole (or equivalent) 40 mg daily and sucralfate (carafate) four times a day to prevent bleeding Stay on aspirin 81 mg daily, but stop brilinta Your blood pressure was LOW when you came in, and last few days has been NORMAL without medications -I reduced the metoprolol by half, to 50 mg daily -stop amlodipine and losartan -get a home BP cuff and keep log of blood pressure and heart rate - ideally 60-90 minutes after meds, same time of day -follow up with Dr. Mathur and in primary care -low BP could be playing a role in your fatigue, lightheadedness, weakness The gastric polyps need to be removed because they can be precancerous or early gastric cancer Follow up with gastroenterology for polyp removal It was a pleasure taking care of you in the hospital, Alena Frost MD Total Time Total Time Spent Total Time Spent (In Minutes): I personally spent: 40 minutes today on clinical care activities including: reviewing chart notes and vital signs reviewing labs discussion with senior billing consultant(s) - orthopaedic surgeon examining and counseling the patient writing prescriptions, discharge instructions documentation Coding Level of Care Code 57061 INP/OBS DISCH >30 MIN Diagnoses Acute GI bleeding K92.2 CAD (coronary artery disease) I25.10 Diabetes mellitus, type 2 E11.9 ROSARIO (dyspnea on exertion) R06.09
--- NOTE | 2024-08-04 06:13 | Electrocardiogram Report ---
Test Reason : Blood Pressure : */* mmHG Vent. Rate : 87 BPM Atrial Rate : 87 BPM P-R Int : 152 ms QRS Dur : 74 ms QT Int : 384 ms P-R-T Axes : 20 -35 -14 degrees QTcB Int : 462 ms Normal sinus rhythm Left axis deviation Low voltage QRS possible Inferior infarct , age undetermined Possible Anterolateral infarct , age undetermined Abnormal ECG When compared with ECG of 10-Sep-2023 10:35, possible Inferior infarct is now Present Confirmed by Robin Miller ([id number]) on 07/30/2024 4:52:56 PM Referred By: Jim Whitaker Confirmed By: Robin Miller
== END 2024-08-02 13:53 | disposition home or self-care (01) | DRG 394 ==
LOC: ED 12:15 → SUATTDRO 17:51 → 2W 17:51